=== PATIENT | male | born 1935 | race Asian ===

== ENCOUNTER 2024-05-22 17:15 | Inpatient (IN) | payer MEDICARE, BC, SELFPAY ==
[2024-05-22] VITALS (24 sets, daily range): BP systolic 58–238; BP diastolic 36–162; PULSE 77–164; RESP 16–28; TEMP 36.3–37.3; O2SAT 91–100; BMI 25.8
--- NOTE | 2024-05-22 17:23 | PC.NURSE ---
Patient to er via ems from home was in a passenger seat in a car with altered mental status, and has had decreased mental status en route. Patient was speaking to culinary manager on their arrival, however, patient not speaking now, not following commands or answering questions. Stroke alert called by tayo Huston NP take patient to ct.
--- NOTE | 2024-05-22 17:25 | XR_ITS ---
Examination: CT brain head without contrast. 2-D sagittal coronal reconstructions Date and time of exam:May 22, 2024 1738 hours Comparison July 15, 2021 INDICATIONS: Stroke alert, onset focal neurologic deficit today CTDI: vol (mGy):107.2 DLP: (mGycm):1993 Technique: Multiple CT axial sections of the brain have been obtained, 5 mm slice thickness. Contrast has not been administered. 2-D sagittal, coronal reconstructions have been obtained Low dose protocols were performed. One or more of the following dose reduction techniques were used; automated exposure control, adjustment of the mA and/or KV according to patient size, use of iterative reconstruction technique. Findings: Extensive patient motion The ventricles are not enlarged IMPRESSION: This is essentially a nondiagnostic study Repeat
--- NOTE | 2024-05-22 17:25 | EKG_ITS ---
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
--- NOTE | 2024-05-22 17:26 | PD.EDADULT ---
ED General RME/HPI General Chief complaint: Altered Mental Status Stated complaint: AMS Time Seen by Provider: 05/22/24 17:21 Arrival date/time: 05/22/24 17:15 CC: Altered mental status HPI no last known normal. The patient per EMS was reported to be not himself for the last day, but became severely altered in the last 30 minutes after returning from his primary care provider's office. Patient was transported to us via EMS who pulled him from his vehicle in the driveway of his own private residence, with report from a renter of the patient who escorted the patient to his primary care's visit. The patient is responding to most questions with just his name or I do not know. Related Data Home Medications ?Medication ?Instructions ?Recorded ?Confirmed atorvastatin 10 mg tablet (Lipitor) 10 mg PO QDAY #0 tabs 02/28/16 07/19/19 gabapentin 300 mg capsule 300 mg PO TID ##0 02/28/16 07/19/19 (Neurontin) metformin 500 mg tablet 500 mg PO TID #0 tabs 02/28/16 07/19/19 (Glucophage) amlodipine 5 mg tablet (Norvasc) 5 mg PO QDAY 03/15/19 07/19/19 dutasteride 0.5 mg capsule 0.5 mg PO QDAY 03/15/19 07/19/19 (Avodart) metoprolol succinate 50 mg capsule 50 mg PO QDAY 03/15/19 07/19/19 sprinkle, ext. release 24 hr olmesartan 40 mg tablet (Benicar) 40 mg PO QDAY 03/15/19 07/19/19 fluticasone propionate 50 1 spray intranasal DAILY 07/19/19 07/19/19 mcg/actuation nasal spray,suspension Previous Rx's ?Medication ?Instructions ?Recorded finasteride 5 mg tablet 5 mg PO QDAY #30 tabs 07/20/19 tamsulosin 0.4 mg capsule 0.4 mg PO QDAY #30 caps 07/20/19 Allergies Allergy/AdvReac Type Severity Reaction Status Date / Time Penicillins Allergy Severe HIVES, RASH Verified 07/18/19 18:40 shellfish derived Allergy Intermediate Swelling Verified 07/18/19 18:40 Iodine and Iodide Containing AdvReac Severe Vomiting, Verified 04/15/20 18:40 Produc SWELLING Review of Systems Review of Systems ROS Unobtainable: unobtainable due to mental status Past Medical History Past Medical History NEUROLOGIC: Positive Peripheral Neuropathy CARDIAC: Positive Cardiac Disorders (coronary stent, right 70% carotid stenosis), Hypercholesterolemia, Congestive Heart Failure and Hypertension RESPIRATORY: Positive Chronic Obstructive Pulmonary Disease (COPD) and Asthma GENITOURINARY: Positive Renal Disease and Benign Prostatic Hyperplasia MUSCULOSKELETAL: Positive Degenerative Disk Disease ENT: Positive Deafness ENDOCRINE: Positive Endocrine Disorders and Diabetes Mellitus Type 2; Negative Diabetes Mellitus Type 1 HEMATOLOGIC: Positive Sickle Cell Disease OTHER HISTORY: Negative Blood Transfusions Family History FAMILY HISTORY: Positive Family Neurologic Problems (Mother had a stroke) and Family Cancer (1 brother had colon cancer, another brother had lymphoma) Surgical History SURGICAL: Positive Coronary Stent Social History SMOKING STATUS: Never smoker SUBSTANCE USE: does not use ED Exam Narrative Physical exam: [General: Obtunded appears not in any acute distress Head normocephalic HEENT: Eyes: Pupils are PERRLA EOMs are intact, mouth: [place] dry membranes uvula is midline phonation is normal. Nose: no rhinorrhea or epistaxis all other subsystems of HEENT are within acceptable limits Neck is supple nontender Chest equal chest rise nontender to palpation Respiratory: Clear to auscultation no wheezes crackles or rubs CV: Rate rhythm is regular no murmurs rubs or clicks Abdomen is soft, no masses positive bowel sounds all 4 quadrants Back: No CVA tenderness no spinous process tenderness from cervical spine thoracic and lumbar spine Skin: Intact no petechiae rash induration ulceration or crepitus Extremities: Moving all extremity spontaneously cap refill less than 2 seconds neurosensory intact Neuro: Obtunded Course Course Course Narrative: At 1810 was informed by nursing that the patient became severely agitated in CT, after 1 mg of Ativan the patient actually worsened in his agitation now biting and hitting the staff. Reassessment of the patient shows he is completely changed from when initial assessment where he was semisomnolent semiresponsive now he is aggressive. At this time I have elected in consideration with Dr. Fisher to intubate this patient for better medical management and further imaging. Patient successfully intubated without complication noted to be in A-fib RVR with a heart rate of 161. The patient given 20 mg of Cardizem, and started on a Cardizem drip pressures were initially at 200/100 currently now at 155/73. Rectal temp noted to be 99.3. Patient's case presented to Dr. Cheek who agrees to accept the patient for admission. Quality Measures none Orders Category Date Time Status 24 HR Medical Restraints Q2HR Care 05/22/24 18:22 Active Bedside Blood Glucose NOW Care 05/22/24 17:25 Active Multisensor Intelligence Officer NOW Care 05/22/24 17:25 Active Continuous Pulse Oximetry NOW Care 05/22/24 17:25 Completed EKG (ED ONLY) *Do not use* NOW Care 05/22/24 17:25 Completed [place] [Urinary Catheter] QS Care 05/22/24 19:10 Active In and Out Catheter NEEDED Care 05/22/24 17:25 Active Insert IV NOW Care 05/22/24 17:25 Active Insert NG / OG tube NOW Care 05/22/24 18:34 Active Intubation NOW Care 05/22/24 18:17 Completed Miscellaneous Nursing Order NOW Care 05/22/24 21:14 Active NG / OG Tube to LIS NOW Care 05/22/24 18:17 Active NIH Stroke Scale now Care 05/22/24 17:25 Active NPO NOW Care 05/22/24 17:25 Active Nurse Swallow Screen x1 Care 05/22/24 17:25 Active Urinary Catheter QS Care 05/22/24 18:29 Active Consult to Neurology / Tele-Neurology Routine Cons 05/22/24 17:25 Active CA echo doppler complete Routine Exams 05/22/24 20:[address] chest abdomen pelvis wo Stat Exams 05/22/24 19:[address] head/brain wo con Stat Exams 05/22/24 19:[address] stroke protocol Stat Exams 05/22/24 17:25 Completed EKG (ED Only) Stat Exams 05/22/24 17:25 Draft XR chest 1V Stat Exams 05/22/24 18:17 Completed XR chest 1V post procedure Stat Exams 05/22/24 18:32 Completed ABG [Arterial Blood Gas] Stat Lab 05/22/24 19:52 Completed Ammonia Stat Lab 05/22/24 19:47 Completed Blood Culture (Lab) Stat Lab 05/22/24 17:32 Received CBC Stat Lab 05/22/24 17:34 Completed CRP [C-Reactive Protein] Stat Lab 05/22/24 17:34 Completed Cocci Serology IgM with reflex to IgG [Cocci Serology, Lab 05/22/24 21:09 Ordered Unk History] Stat Comprehensive Metabolic Panel Stat Lab 05/22/24 17:34 Completed Drug Screen,Urine Stat Lab 05/22/24 19:07 Completed Free T4 (Free Thyroxine) Stat Lab 05/22/24 17:34 Completed HCG Titer if Positive Stat Lab 05/22/24 17:34 Completed Lactic Acid [Lactate (Lactic Acid)] Stat Lab 05/22/24 20:19 Results Magnesium Stat Lab 05/22/24 17:34 Completed Partial Thromboplastin Time Stat Lab 05/22/24 17:34 Completed Procalcitonin Stat Lab 05/22/24 17:34 Completed Prothrombin Time with INR Stat Lab 05/22/24 17:34 Completed Sed Rate (ESR) Stat Lab 05/22/24 17:34 Completed Sputum Culture and Gram Stain Stat Lab 05/22/24 20:20 Received Syphilis Stat Lab 05/22/24 17:34 Completed Thyroid Stimulating Hormone Stat Lab 05/22/24 17:34 Completed Troponin I Stat Lab 05/22/24 17:34 Completed Urinalysis Stat Lab 05/22/24 19:07 Completed Urine Culture Stat Lab 05/22/24 19:05 Received Vitamin B1 (Thiamine)* Stat Lab 05/22/24 19:47 Received Vitamin B12 Stat Lab 05/22/24 17:34 Completed Cefepime Inj [Maxipime Inj] 2 gm Med 05/22/24 21:22 Ordered Sodium Chloride 0.9% [Ns] 50 ml IV Q8HR DILTIAZEM in D5W 125 MG Med 05/22/24 18:51 Discontinued 125 mg in 125 ml IV 5 mg/hr Diltiazem Inj [Cardizem Inj] Med 05/22/24 18:50 Discontinued 20 mg IV X1 ONE Etomidate Inj [Amidate Inj] Med 05/22/24 18:17 Discontinued 20 mg IVP X1 ONE LORazepam [Ativan Inj] Med 05/22/24 17:47 Discontinued 1 mg IVP X1 ONE LORazepam [Ativan Inj] Med 05/22/24 17:43 Discontinued 2 mg .ROUTE .STK-MED ONE Magnesium Sulfate 4 GM Ivpb [Magnesium Sulfate Ivpb] Med 05/22/24 18:26 Active 4 gm in 50 ml IV X1 Midazolam/Ns 100 mg Ivpb [Versed Pf Inj in Ns Premix] Med 05/22/24 18:17 Active 100 mg in 100 ml IV 1 mg/hr Ondansetron Inj [Zofran Inj] Med 05/22/24 17:25 Active 4 mg IV Q4HR PRN Propofol 1,000 mg Ivpb [Diprivan Ivpb] Med 05/22/24 19:10 Active 1,000 mg in 100 ml IV 5 mcg/kg/min Ringers Lactated 1000 ml [Lactated Ringers] 1,000 ml Med 05/22/24 20:06 Discontinued IV 999 mls/hr Rocuronium Inj [Zemuron Inj] Med 05/22/24 18:17 Discontinued 40 mg IVP X1 ONE Sodium Chloride 0.9% 1000 ml [Ns] 1,000 ml Med 05/22/24 20:39 Active IV 125 mls/hr Sodium Chloride 0.9% 1000 ml [Ns] 1,000 ml Med 05/22/24 19:01 Discontinued IV 150 mls/hr Sodium Chloride 0.9% 1000 ml [Ns] 1,000 ml Med 05/22/24 18:50 Discontinued IV 999 mls/hr Sodium Chloride Rt [place] 10% [NS Rt [place]achi 10%] Med 05/22/24 19:01 Discontinued 5 ml INH X1 ONE Vancomycin Pharmacy to Dose Med 05/23/24 09:00 Ordered 1 each IV QDAY cefTRIAXone [Rocephin] 1,000 mg Med 05/22/24 19:50 Discontinued SODIUM CHLORIDE 0.9% (Popper) [NS 0.9% (Popper)] 50 ml IV X1 fentaNYL 2,500 MCG/250 ML BAG [Sublimaze Inj 2,500 MCG/ Med 05/22/24 18:20 Active 250 ML BAG] 2,500 mcg in 250 ml IV 25 mcg/hr Oxygen Delivery NOW RT 05/22/24 17:25 Active Sputum Induction PRN RT 05/22/24 19:15 Ordered Volume Ventilator Stat RT 05/22/24 Active Vital Signs Vital signs: Vital Signs Temperature 97.3 F 05/22/24 17:35 Pulse Rate 93 05/22/24 17:35 Respiratory Rate 16 05/22/24 17:35 Blood Pressure 128/61 05/22/24 17:35 Pulse Oximetry (%) 94 L 05/22/24 17:35 Oxygen Delivery Method Room Air 05/22/24 17:35 [facility] Patient data External records reviewed:: [facility] previous records and EMS form Clinical information provided by:: patient and EMS Social determinants that could affect healthcare access:: none Patient has the following chronic illnesses:: Hypertension diabetes How is presenting disease/condition affected by chronic disease/condition?: uneffected by Evaluation data The following diagnostics were reviewed and interpreted by me:: lab results, radiology exam(s) and EKG tracing(s) Lab and/or radiology exams considered but not ordered:: CBC shows mild leukocytosis 11.4 and H&H of 13 and 37 with platelets at 165. Coags show PT of 12.4 INR PTT are within acceptable limits CMP shows BUN of 26 with no other electrolyte imbalances glucose of 244 magnesium of 1.1. Interpretation Summary: CBC shows a mild leukocytosis 11.4 H&H of 13.1 and 37.9 respectively platelets at 165. Coag shows a PT of 12.4 INR 1.1 PTT 27.5 CMP shows no significant electrolyte imbalances other than a magnesium of 1.1. BUN of 26 creatinine of 1.3 GFR 53 no transaminitis or T. bili elevation Troponin is negative Postintubation ABG shows a pH of 7.39 pCO2 of 40 pO2 141 bicarb of 24 oxygen saturations are 100% base deficit of 1. Magnesium 1.1 C-reactive proteins pending troponin is negative TSH of 3.[address] chest abdomen pelvis shows significant bibasilar pneumonia CT head is negative for any acute finding Medications Medications considered but not ordered:: None yet he does Medication administrations:: Medication Administration History Fentanyl Citrate (Sublimaze Inj 2,500 Mcg/250 Ml Bag) 2,500 mcg in 250 mls @ 2.5 mls/hr IV .Q24H PRN; Protocol PRN Reason: PER PROTOCOL Stop: 05/27/24 18:19 Last Titration: 05/22/24 20:32 Dose: 125 mcg/hr, 12.5 mls/hr Documented By: Titration: 05/22/24 20:23 Dose: 75 mcg/hr, 7.5 mls/hr Documented By: Titration: 05/22/24 19:06 Dose: 75 mcg/hr, 7.5 mls/hr Documented By: Admin: 05/22/24 18:36 Dose: 25 mcg/hr, 2.5 mls/hr Documented By: VENUS Co-signed By: ADRIAN Midazolam HCl (Versed Pf Inj In Ns Premix) 100 mg in 100 mls @ 1 mls/hr IV .Q24H PRN; Protocol PRN Reason: PER PROTOCOL Stop: 05/27/24 18:16 Last Titration: 05/22/24 20:37 Dose: 3 mg/hr, 3 mls/hr Documented By: Titration: 05/22/24 19:37 Dose: 2 mg/hr, 2 mls/hr Documented By: Admin: 05/22/24 18:37 Dose: 1 mg/hr, 1 mls/hr Documented By: VENUS Co-signed By: ADRIAN Magnesium Sulfate (Magnesium Sulfate Ivpb) 4 gm in 50 mls @ 12.5 mls/hr IV X1 ONE Stop: 05/22/24 22:25 Last Admin: 05/22/24 18:55 Dose: 12.5 mls/hr Documented By: LARY Propofol (Diprivan Ivpb) 1,000 mg in 100 mls @ 2.245 mls/hr IV .Q24H PRN; Protocol PRN Reason: PER PROTOCOL Stop: 06/21/24 19:09 Last Titration: 05/22/24 20:45 Dose: 0 mcg/kg/min, 0 mls/hr Documented By: Titration: 05/22/24 20:35 Dose: 5 mcg/kg/min, 2.245 mls/hr Documented By: Titration: 05/22/24 19:49 Dose: 0 mcg/kg/min, 0 mls/hr Documented By: Titration: 05/22/24 19:46 Dose: 5 mcg/kg/min, 2.245 mls/hr Documented By: Titration: 05/22/24 19:41 Dose: 10 mcg/kg/min, 4.491 mls/hr Documented By: Titration: 05/22/24 19:36 Dose: 15 mcg/kg/min, 6.736 mls/hr Documented By: Titration: 05/22/24 19:31 Dose: 20 mcg/kg/min, 8.981 mls/hr Documented By: Titration: 05/22/24 19:26 Dose: 15 mcg/kg/min, 6.736 mls/hr Documented By: Titration: 05/22/24 19:21 Dose: 10 mcg/kg/min, 4.491 mls/hr Documented By: Admin: 05/22/24 19:16 Dose: 5 mcg/kg/min, 2.245 mls/hr Documented By: DUY Co-signed By: ADRIAN Sodium Chloride (Ns) 1,000 mls @ 125 mls/hr IV .Q8H JAQUELIN Stop: 06/21/24 20:38 Last Admin: 05/22/24 20:51 Dose: 125 mls/hr Documented By: DUY Cefepime HCl 2 gm/ Sodium (Chloride) 50 mls @ 100 mls/hr IV Q8HR JAQUELIN Stop: 05/29/24 21:21 Ondansetron HCl (Ondansetron Inj 2 Mg/Ml Inj 2 Ml) 4 mg IV Q4HR PRN PRN Reason: NAUSEA OR VOMITING Stop: 06/21/24 17:24 Pharmacy Consult (Vancomycin Pharmacy To Dose 1 Each Each) 1 each IV QDAY JAQUELIN Stop: 06/22/24 08:59 Discontinued Medications Diltiazem HCl (Diltiazem Inj 5 Mg/Ml Vial 5 Ml) 20 mg IV X1 ONE Stop: 05/22/24 18:51 Last Admin: 05/22/24 18:54 Dose: 20 mg Documented By: LARY Etomidate (Etomidate Inj 2 Mg/Ml Vial 10 Ml) 20 mg IVP X1 ONE Stop: 05/22/24 18:18 Last Admin: 05/22/24 18:28 Dose: 20 mg Documented By: ADRIAN Sodium Chloride (Ns) 1,000 mls @ 999 mls/hr IV .Q1H1M ONE Stop: 05/22/24 19:50 Last Admin: 05/22/24 19:06 Dose: Not Given Documented By: LARY Non-Admin Reason: Cancelled by Provider Diltiazem HCl (Diltiazem In D5w 125 Mg) 125 mg in 125 mls @ 5 mls/hr IV .Q24H JAQUELIN; Protocol Stop: 06/21/24 18:50 Last Titration: 05/22/24 19:49 Dose: 0 mg/hr, 0 mls/hr Documented By: Admin: 05/22/24 19:05 Dose: 5 mg/hr, 5 mls/hr Documented By: LARY Sodium Chloride (Ns) 1,000 mls @ 150 mls/hr IV .Q6H40M ONE Stop: 05/23/24 01:40 Last Admin: 05/22/24 19:05 Dose: 150 mls/hr Documented By: LARY Ceftriaxone Sodium 1,000 mg/ (Sodium Chloride) 50 mls @ 100 mls/hr IV X1 ONE Stop: 05/22/24 20:19 Last Infusion: 05/22/24 20:33 Dose: Infused Documented By: Admin: 05/22/24 20:03 Dose: 100 mls/hr Documented By: KG Lactated Ringer's (Lactated Ringers) 1,000 mls @ 999 mls/hr IV .Q1H1M ONE Stop: 05/22/24 21:06 Last Admin: 05/22/24 20:16 Dose: 999 mls/hr Documented By: KG Lorazepam (Lorazepam 2 Mg/Ml Vial) 1 mg IVP X1 ONE Stop: 05/22/24 17:48 Last Admin: 05/22/24 17:53 Dose: 1 mg Documented By: ADRIAN Comments: given in CT Lorazepam (Lorazepam 2 Mg/Ml Vial) Confirm Administered Dose 2 mg .ROUTE .STK-MED ONE Stop: 05/22/24 17:44 Last Admin: 05/22/24 18:06 Dose: Not Given Documented By: ADRIAN Non-Admin Reason: Override Medication Rocuronium [place] (Rocuronium Inj 10 Mg/Ml Vial 10 Ml) 40 mg IVP X1 ONE Stop: 05/22/24 18:18 Last Admin: 05/22/24 18:28 Dose: 40 mg Documented By: ADRIAN Co-signed By: KASHMIR Comments: for intubation Sodium Chloride (Sodium Chloride Rt 10% 15 Ml Nebu) 5 ml INH X1 ONE Stop: 05/22/24 19:02 None Consultations Consultation(s) initiated? (list below): No Diagnosis Differential Diagnosis ED Complaint MDM: Intracranial hemorrhage hypertensive emergency closed head injury Most likely diagnosis given after review of the tests above:: Altered mental status pneumonia Admission Indicated Admission indicated?: indicated Explain why admission is indicated or not indicated:: Requires intensive management Admission Request Was there a request for admission?: No Disposition Plan Disposition Plan: Admit Medical Decision Making Differential Diagnosis Differential Diagnosis: Intracranial hemorrhage hypertensive emergency closed head injury Lab Data 05/22/24 17:34 05/22/24 17:34 Labs: Lab Results 05/22/24 05/22/24 05/22/24 Range/Units 17:34 19:07 19:47 WBC 11.4 H (3.8-10.6) Thou/mm3 RBC 4.13 L (4.50-5.90) Miln/mm3 Hgb 13.1 L (13.5-16.0) g/dL Hct 37.9 L (41.0-53.0) % MCV 92 (80-100) fL MCH 31.7 (25.0-35.0) pg MCHC 34.6 (31.0-37.0) g/dl RDW Std Deviation 44.5 H (35.1-43.9) fL Plt Count 165 (140-440) Thou/mm3 Neut % (Auto) 77 (37-80) % Lymph % (Auto) 19 (10-50) % [place] % (Auto) 3 (0-12) % Eos % (Auto) 0 (0-10) % Baso % (Auto) 0 (0-2.5) % Neut # (Auto) 8.8 H (1.8-7.7) Thou/mm3 Lymph # (Auto) 2.1 (1.0-4.8) Thou/mm3 [place] # (Auto) 0.4 (0.0-0.8) Thou/mm3 Eos # (Auto) 0.0 (0.0-0.5) Thou/mm3 Baso # (Auto) 0.1 (0.0-0.2) Thou/mm3 Immature Gran # (Auto) 0.02 H (0.00-0.00) Thou/mm3 Absolute Nucleated RBC 0.00 (0.00-0.00) Thou/mm3 Immature Gran % 0 (0-0) % Nucleated RBC % 0 (0) /100 WBC ESR 11 (0-20) mm/hr PT 12.4 H (9.0-12.2) Seconds INR 1.1 (0.9-1.3) APTT 27.5 (22.0-36.0) Seconds Puncture Site ABG pH (7.35-7.45) ABG pCO2 (32.0-48.0) mmHg ABG pO2 (83-108) mmHg ABG HCO3 (20-26) mEq/L ABG O2 Saturation (91-98) % ABG Base Excess (-3-3) FiO2 % Sodium 137 (136-145) mMol/L Potassium 4.2 (3.4-5.1) mMol/L Chloride 98 (98-107) mMol/L Carbon Dioxide 26.2 (20.0-31.0) mMol/L Anion Gap 13 (7-16) BUN 26 H (9-23) mg/dL Creatinine 1.3 (0.6-1.3) mg/dL Estim Creat Clear Calc Not Performed. eGFR 53 L (60 - ) See Note BUN/Creatinine Ratio 20 (12-20) Ratio Glucose 244 H (74-106) mg/dL Calculated Osmolality 286 (275-295) Lactic Acid (0.4-2.0) mMol/L Calcium 9.1 (8.3-10.6) mg/dL Corrected Calcium 9.2 (8.5-10.1) mg/dL Magnesium 1.1 L (1.6-2.6) mg/dL Total Bilirubin 1.2 (0.3-1.2) mg/dL AST 24 (0-34) U/L ALT 17 (10-49) U/L Alkaline Phosphatase 55 (46-116) U/L Ammonia 21 (11-32) uMol/L Troponin I < 0.020 (0.0-0.045) ng/mL C-Reactive Prot, Quant 6.0 H (0.0-0.9) mg/dL Total Protein 6.1 (5.7-8.2) gm/dL Albumin 3.9 (3.4-4.8) gm/dL Globulin 2.2 L (2.3-3.5) gm/dL Albumin/Globulin Ratio 1.8 (1.2-2.2) Vitamin B12 241 (211-911) pg/mL Procalcitonin 5.61 H (0.0-0.49) ng/ml TSH 3.77 (0.55-4.78) uIU/mL Free T4 1.19 (0.89-1.76) ng/dL Ur Collection Type Clean Catch Urine Color Colorless A (Lt Yel-Yel) Urine Clarity Clear (Clear/Hazy) Urine pH 6.5 (5.0-7.0) Ur Specific [place] 1.010 (1.001-1.035) Urine Protein 1+ A (Neg - Trace) Urine Glucose (UA) 3+ A (Negative) Urine Ketones 1+ A (Negative) Urine Blood 1+ A (Negative) Urine Nitrite Negative (Negative) Urine Bilirubin Negative (Negative) Urine Urobilinogen (Auto) Negative (0.0-1.0) mg/dL Ur Leukocyte Esterase Negative (Negative) Urine RBC 2 (0-3) /hpf Urine WBC 1 (0-5) /hpf Ur Squamous Epith Cells 0 (0-5) /hpf Urine Bacteria None (None) Urine Opiates Screen Negative (Negative) Urine Fentanyl Screen Negative (Negative) Ur Barbiturates Screen Negative (Negative) U Amphetamin/Meth Scrn Negative (Negative) U Benzodiazepines Scrn Negative (Negative) U Cocaine Metab Screen Negative (Negative) U Marijuana (THC) Screen Negative (Negative) Syphilis Serology Nonreactive (Nonreactive) HCG (Qual) Negative 05/22/24 05/22/24 Range/Units 19:52 20:19 WBC (3.8-10.6) Thou/mm3 RBC (4.50-5.90) Miln/mm3 Hgb (13.5-16.0) g/dL Hct (41.0-53.0) % MCV (80-100) fL MCH (25.0-35.0) pg MCHC (31.0-37.0) g/dl RDW Std Deviation (35.1-43.9) fL Plt Count (140-440) Thou/mm3 Neut % (Auto) (37-80) % Lymph % (Auto) (10-50) % [place] % (Auto) (0-12) % Eos % (Auto) (0-10) % Baso % (Auto) (0-2.5) % Neut # (Auto) (1.8-7.7) Thou/mm3 Lymph # (Auto) (1.0-4.8) Thou/mm3 [place] # (Auto) (0.0-0.8) Thou/mm3 Eos # (Auto) (0.0-0.5) Thou/mm3 Baso # (Auto) (0.0-0.2) Thou/mm3 Immature Gran # (Auto) (0.00-0.00) Thou/mm3 Absolute Nucleated RBC (0.00-0.00) Thou/mm3 Immature Gran % (0-0) % Nucleated RBC % (0) /100 WBC ESR (0-20) mm/hr PT (9.0-12.2) Seconds INR (0.9-1.3) APTT (22.0-36.0) Seconds Puncture Site Right Radial ABG pH 7.39 (7.35-7.45) ABG pCO2 40 (32.0-48.0) mmHg ABG pO2 141 H (83-108) mmHg ABG HCO3 24 (20-26) mEq/L ABG O2 Saturation 100 H (91-98) % ABG Base Excess -1 (-3-3) FiO2 75 % Sodium (136-145) mMol/L Potassium (3.4-5.1) mMol/L Chloride (98-107) mMol/L Carbon Dioxide (20.0-31.0) mMol/L Anion Gap (7-16) BUN (9-23) mg/dL Creatinine (0.6-1.3) mg/dL Estim Creat Clear Calc eGFR (60 - ) See Note BUN/Creatinine Ratio (12-20) Ratio Glucose (74-106) mg/dL Calculated Osmolality (275-295) Lactic Acid 4.9 H* (0.4-2.0) mMol/L Calcium (8.3-10.6) mg/dL Corrected Calcium (8.5-10.1) mg/dL Magnesium (1.6-2.6) mg/dL Total Bilirubin (0.3-1.2) mg/dL AST (0-34) U/L ALT (10-49) U/L Alkaline Phosphatase (46-116) U/L Ammonia (11-32) uMol/L Troponin I (0.0-0.045) ng/mL C-Reactive Prot, Quant (0.0-0.9) mg/dL Total Protein (5.7-8.2) gm/dL Albumin (3.4-4.8) gm/dL Globulin (2.3-3.5) gm/dL Albumin/Globulin Ratio (1.2-2.2) Vitamin B12 (211-911) pg/mL Procalcitonin (0.0-0.49) ng/ml TSH (0.55-4.78) uIU/mL Free T4 (0.89-1.76) ng/dL Ur Collection Type Urine Color (Lt Yel-Yel) Urine Clarity (Clear/Hazy) Urine pH (5.0-7.0) Ur Specific [place] (1.001-1.035) Urine Protein (Neg - Trace) Urine Glucose (UA) (Negative) Urine Ketones (Negative) Urine Blood (Negative) Urine Nitrite (Negative) Urine Bilirubin (Negative) Urine Urobilinogen (Auto) (0.0-1.0) mg/dL Ur Leukocyte Esterase (Negative) Urine RBC (0-3) /hpf Urine WBC (0-5) /hpf Ur Squamous Epith Cells (0-5) /hpf Urine Bacteria (None) Urine Opiates Screen (Negative) Urine Fentanyl Screen (Negative) Ur Barbiturates Screen (Negative) U Amphetamin/Meth Scrn (Negative) U Benzodiazepines Scrn (Negative) U Cocaine Metab Screen (Negative) U Marijuana (THC) Screen (Negative) Syphilis Serology (Nonreactive) HCG (Qual) Critical Care Time Critical Care Time Critical Care Time: Yes Total Critical Care Time (min.): 48 Attestation: Excluding procedures Discharge Plan Plan Patient Disposition: Admit Acute Care w/in Hospital Patient condition on transfer: Stable Prescriptions/Referrals Prescriptions/Med Rec: No Action metformin [Glucophage] 500 MG tablet 500 mg PO TID Qty: 0 atorvastatin [Lipitor] 10 MG tablet 10 mg PO QDAY Qty: 0 gabapentin [Neurontin] 300 MG capsule 300 mg PO TID Qty: 0 amlodipine [Norvasc] 5 mg Tablet 5 mg PO QDAY olmesartan [Benicar] 40 mg Tablet 40 mg PO QDAY dutasteride [Avodart] 0.5 mg Capsule 0.5 mg PO QDAY metoprolol succinate 50 mg Capsule,Sprinkle,Er 24hr 50 mg PO QDAY fluticasone propionate 50 mcg/actuation spray,suspension 1 spray intranasal DAILY Patient Comments: SHAKE LQ AND U 1 SPR IEN QD finasteride 5 mg Tablet 5 mg PO QDAY Qty: 30 0RF tamsulosin 0.4 mg Capsule 0.4 mg PO QDAY Qty: 30 0RF Referrals: Luis Alberto Dietrich MD [Primary Care Provider] - In 1 week Problem List Clinical Impression: Altered mental status, Pneumonia Patient/Caregiver Discharge Instructions Print Language: Japanese Stand Alone Forms: Kaci Award Info., Patient Portal Info Letter PA/[employer] Supervising Physician PA/[employer] Supervising Physician: Robel Smith ENP
--- NOTE | 2024-05-22 17:35 | PC.NURSE ---
Took patient to ct via [facility] and line controller with Teleneurologist, Dr. Tamayo on screen to follow.
[2024-05-22 17:45] LABS: Basophils # (Auto) 0.1 Thou/mm3 (0.0-0.2); Basophils % (Auto) 0 % (0-2.5); Eosinophils % (Auto) 0 % (0-10); Hematocrit 37.9 % (41.0-53.0); Hemoglobin 13.1 g/dL (13.5-16.0); Immature Granulocytes % (Auto) 0 % (0-0); Immature Granulocytes Auto 0.02 Thou/mm3 (0.00-0.00); Lymphocytes # (Auto) 2.1 Thou/mm3 (1.0-4.8); Lymphocytes % (Auto) 19 % (10-50); Mean Corpuscular HGB Conc 34.6 g/dl (31.0-37.0); Mean Corpuscular Hemoglobin 31.7 pg (25.0-35.0); Mean Corpuscular Volume 92 fL (80-100); Monocytes # (Auto) 0.4 Thou/mm3 (0.0-0.8); Monocytes % (Auto) 3 % (0-12); Neutrophils # (Auto) 8.8 Thou/mm3 (1.8-7.7); Neutrophils % (Auto) 77 % (37-80); Nucleated Red Blood Cell % 0 /100 WBC (0); Platelet Count 165 Thou/mm3 (140-440); RDW Standard Deviation 44.5 fL (35.1-43.9); Red Blood Count 4.13 Miln/mm3 (4.50-5.90); White Blood Count 11.4 Thou/mm3 (3.8-10.6)
--- NOTE | 2024-05-22 17:46 | PC.NURSE ---
In ct patient restless moving around and trying to remove equipment, per Dr. Tamayo can ask er provider for medication to calm patient, patient allergic to iodine and Dr. Tamayo made aware, cta will not be done do to allergy.
[2024-05-22] MEDS: LORazepam 2 MG/ML VIAL 1 MG IVP (17:53)
[2024-05-22 17:58] LABS: HCG Titer if Positive Negative
[2024-05-22 18:01] LABS: INR 1.1 (0.9-1.3); Partial Thromboplastin Time 27.5 Seconds (22.0-36.0); Prothrombin Time 12.4 Seconds (9.0-12.2)
--- NOTE | 2024-05-22 18:03 | ESCONSULT_ITS ---
Tele Neuro Consultation Consultation Date 05/22/24 Most Recent Vital Signs Last Vital Signs Pulse 93 05/22/24 17:35 Laboratory-Coagulation Panel PT 12.4 Seconds (9.0-12.2) H 05/22/24 17:34 INR 1.1 (0.9-1.3) 05/22/24 17:34 APTT 27.5 Seconds (22.0-36.0) 05/22/24 17:34 Consultation Narrative [facility] Patient Name:???elzbieta shepherd Date of :???[id number] Identification Number:??? Date of Service:???05/22/2024 17:28:46 Diagnosis:?G93.49 - Encephalopathy Multifactorial Impression: ?This is an 88 yo M w a PMHX of HTN, DM, acoustic neuroma, who presents to the ED with the acute onset of AMS. He was last known to be at baseline at an unclear time, although was noted to be off all day as per his renter. Was taken to the PCP and noted to have an acute worsening of his condition around 5PM. On arrival to the ED his symptoms remain persistent, although improving. BP was found to be 128 systolic ?Physical exam with unresponsiveness to commands, agitated, moving all extremities spontanesouly but not to command, does not verbalize. ?Labs pending ?Imaging with CTH pending read ?Etiology of presentation favored to be from reversible pathology from toxic/metabolic/infectious/hemodynamic cause. ?Less likely ischemic or ictal, although would consider this ? ? ?Would start with tests for reversible causes: ? ?-UA, Utox, thiamine, ammonia, RPR, TSH, B12, ABG, alcohol, ESR, CRP, troponins, A1C, CBC, CMP, LFTs, CPK, lactic acid, blood cultures if febrile. ?-CXR ? ? ?If the above is unrevealing and the symptoms persist/recur, would consider the below: ? ?-MRI brain with and w/o con ?-rEEG ? ?If the above is unrevealing and the symptoms persist, would consider the below ? ?-LP ? Our recommendations are outlined below. Recommendations: ? Stroke/Telemetry Floor ? Neuro Checks ? Bedside Swallow Eval ? DVT Prophylaxis ? IV Fluids, Normal Saline ? Head of Bed 30 Degrees ? Euglycemia and Avoid Hyperthermia (PRN Acetaminophen) Advanced Imaging:Advanced Imaging Deferred because: severe contrast allergy with reported respiratory distress Metrics: Last Known Well: Unknown Dispatch Time: 05/22/2024 17:28:46 Arrival Time: 05/22/2024 17:15:00 Initial Response Time: 05/22/2024 17:33:45Symptoms: AMS. Initial patient interaction: 05/22/2024 17:47:00 NIHSS Assessment Completed: 05/22/2024 17:52:19Patient is not a candidate for Thrombolytic. Thrombolytic Medical Decision: 05/22/2024 17:58:53Patient was not deemed candidate for Thrombolytic because of following reasons: LKW outside 4.5 hr window. . I personally Reviewed the CT Head and it Showed Primary Provider Notified of Diagnostic Impression and Management Plan on: 05/22/2024 18:01:54 History of Present Illness:Patient is a 88 year old Male. Patient was brought by EMS for symptoms of AMS. This is an 88 yo M w a PMHX of HTN, DM, acoustic neuroma, who presents to the ED with the acute onset of AMS. He was last known to be at baseline at an unclear time, although was noted to be off all day as per his renter. Was taken to the PCP and noted to have an acute worsening of his condition around 5PM. On arrival to the ED his symptoms remain persistent, although improving. BP was found to be 128 systolic. He was taken for CTH and further evaluation. Decision on whether or not to give pharmacological thrombolysis was made based on indications, contraindications, and patient's disability status and preference. ? Medications: Anticoagulant use:??Unknown Antiplatelet use:?Unknown Reviewed EMR for current medications Allergies:? NKDA Social History: Smoking: No Alcohol Use: No Drug Use: No Family History: There is no family history of premature cerebrovascular disease pertinent to this consultation ROS : 14 Points Review of Systems was performed and was negative except mentioned in HPI. Past Surgical History: There Is No Surgical History Contributory To Today?s Visit ? Examination: BP(128/61),?Pulse(93),?Blood Glucose(241) 1A: Level of Consciousness - Alert; keenly responsive?+ 0 1B: Ask Month and Age - Could Not Answer Either Question Correctly?+ 2 1C: Blink Eyes & Squeeze Hands - Performs 0 Tasks?+ 2 2: Test Horizontal Extraocular Movements - Normal?+ 0 3: Test Visual Child - No Visual Loss?+ 0 4: Test Facial Palsy (Use Grimace if Obtunded) - Normal symmetry?+ 0 5A: Test Left Arm Motor Drift - Some Effort Against [place]?+ 2 5B: Test Right Arm Motor Drift - Some Effort Against [place]?+ 2 6A: Test Left Leg Motor Drift - Some Effort Against [place]?+ 2 6B: Test Right Leg Motor Drift - Some Effort Against [place]?+ 2 7: Test Limb Ataxia (FNF/Heel-[place]der[place]) - No Ataxia?+ 0 8: Test Sensation - Normal; No sensory loss?+ 0 9: Test Language/Aphasia - Normal; No aphasia?+ 0 10: Test Dysarthria - Mute/Anarthric?+ 2 11: Test Extinction/Inattention - No abnormality?+ 0 NIHSS Score:?14 Pre-Morbid Modified Bertha Scale:0 Points = No symptoms at all Spoke with :?attending This consult was conducted in real time using interactive audio and video technology. Patient was informed of the technology being used for this visit and agreed to proceed. Patient located in hospital and provider located at home/office setting. Patient is being evaluated for possible acute neurologic impairment and high probability of imminent or life-threatening deterioration. I spent total of 35 minutes providing care to this patient, including time for face to face visit via telemedicine, review of medical records, imaging studies and discussion of findings with providers, the patient and/or family. Dr Sheng [facility] For Inpatient follow-up with [facility] physician please call [facility] at . As we are not an outpatient service for any post hospital discharge needs please contact the hospital for assistance. If you have any questions for the [facility] physicians or need to reconsult for clinical or diagnostic changes please contact us via [facility] at . ?
[2024-05-22 18:06] LABS: Alanine Aminotransferase 17 U/L (10-49); Albumin, Serum 3.9 gm/dL (3.4-4.8); Albumin/Globulin Ratio 1.8 (1.2-2.2); Alkaline Phosphatase 55 U/L (46-116); Anion Gap 13 (7-16); Aspartate Amino Transferase 24 U/L (0-34); BUN/Creatinine Ratio 20 Ratio (12-20); Bilirubin,Total 1.2 mg/dL (0.3-1.2); Blood Urea Nitrogen 26 mg/dL (9-23); Calcium 9.1 mg/dL (8.3-10.6); Calcium (Corrected) 9.2 mg/dL (8.5-10.1); Carbon Dioxide 26.2 mMol/L (20.0-31.0); Chloride 98 mMol/L (98-107); Creatinine (Component) 1.3 mg/dL (0.6-1.3); Globulin 2.2 gm/dL (2.3-3.5); Glucose 244 mg/dL (74-106); Magnesium 1.1 mg/dL (1.6-2.6); Osmolality,Calculated 286 (275-295); Potassium 4.2 mMol/L (3.4-5.1); Sodium 137 mMol/L (136-145); Total Protein 6.1 gm/dL (5.7-8.2); Troponin I < 0.020 ng/mL (0.0-0.045); eGFR 53 See Note
--- NOTE | 2024-05-22 18:09 | PC.NURSE ---
Addendum entered by Alicia Awad RN 05/22/24 19:27: Per teleneurologist patient not a candidate for tenecteplase, do to unknown well time, per [employer] stating patient's room mate stated patient not acting normal all day. Original Note: Patient back from ct, restless moving around, agitated, combative, pushing staff away, pinched nurse, patient unable to follow commands.
--- NOTE | 2024-05-22 18:17 | XR_ITS ---
Examination: AP chest single view Technique: AP portable upright chest single view Hypoxic respiratory failure shortness of breath today Exam date and time: May 19, 2024 1832 hrs. Findings: Endotracheal tube tip 5.1 cm above [place] Bilateral pneumonia, significant and diffuse in the right lower The orogastric tube is in the stomach satisfactory position Normal heart size Impression: Bilateral pneumonia, diffuse and significant in the right lung
--- NOTE | 2024-05-22 18:17 | PC.NURSE ---
Patient move to room 3 for intubation
--- NOTE | 2024-05-22 18:25 | PC.NURSE ---
Dr. Fisher and Bijan ALONZO at bedside to intubate patient.
[2024-05-22] MEDS: ETOMIDATE INJ 2 MG/ML VIAL 10 ML 20 MG IVP (18:28)
[2024-05-22] MEDS: ROCURONIUM INJ 10 MG/ML VIAL 10 ML 40 MG IVP (18:28)
--- NOTE | 2024-05-22 18:32 | XR_ITS ---
Examination: AP chest single view Technique one AP portable supine chest single view Exam date and time: May 22, 2024 1840 hrs. Comparison May 22, 2024 1835 hrs. Indications: Hypoxic respiratory failure, pneumonia, repositioned tracheal tube Findings: Tracheal tube tip 5.9 cm above [place] Bilateral pneumonia, diffuse right lung and at the lung bases The orogastric tube is in the stomach, the tip is below the level of the film Impression: Endotracheal tube tip 5.9 cm above [place]
--- NOTE | 2024-05-22 18:35 | ESOP_ITS ---
Procedures Procedure Date / Time 05/22/24 3157 Intubation Indication(s): inability to protect airway Informed consent obtained: procedure done urgently Time out done, and the following verified: correct patient, side and site, p rocedure, patient position and implants and/or equipment Sedative: etomidate Mg given: 20 Paralytic: rocuronium Mg given: 40 Laryngoscope: fiber optic video scope Assist device used: fiber optic device ET tube size: 7.5 ET tube uncuffed: Yes Tube secured depth (cm): 20 Tube secured location: lips Tube placement confirmation: visualized tube passing through cords, equal breath sounds bilaterally, no breath sounds over epigastrium and confirmation by capnometry Patient tolerated procedure: well and no complications EBL(ml): 0 Intubation complications: none Additional comments: Procedure was performed under supervision of Dr. Fisher. James Church MD, PGY 2. Disclaimer: This note was dictated by speech recognition. Minor errors in statement clerks manager may be present due to voice recognition software.
--- NOTE | 2024-05-22 18:35 | PC.NURSE ---
XRAY AT BEDSIDE
[2024-05-22] MEDS: fentaNYL 2,500 MCG/250 ML BAG 2,500 MCG/250 ML BAG IV (18:36)
[2024-05-22] MEDS: MIDAZOLAM/NS 100 MG IVPB 100 MG/100 ML BAG IV (18:37)
--- NOTE | 2024-05-22 18:39 | PC.NURSE ---
ETT pulled back to 20cm at the lip
[2024-05-22] MEDS: DILTIAZEM INJ 5 MG/ML VIAL 5 ML 20 MG IV (18:54)
[2024-05-22] MEDS: Magnesium Sulfate 4 GM Ivpb 4 GM/50 ML BAG IV (18:55)
--- NOTE | 2024-05-22 19:04 | XR_ITS ---
Examination: CT brain head without contrast. 2-D sagittal coronal reconstructions Date and time of exam:May 22, 2024 1926 hrs. Comparison May 22, 2024 1743 hrs. Indications: Altered mental status today CTDI: vol (mGy):52.6 DLP: (mGycm):1032 Technique: Multiple CT axial sections of the brain have been obtained, 5 mm slice thickness. Contrast has not been administered. 2-D sagittal, coronal reconstructions have been obtained Low dose protocols were performed. One or more of the following dose reduction techniques were used; automated exposure control, adjustment of the mA and/or KV according to patient size, use of iterative reconstruction technique. Findings: No significant ventricular enlargement. 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 No mass effect or midline shift Basal cisterns are not remarkable. Fourth ventricle is midline. Cranial vault intact. Posterior fossa artifacts Prominent opacification of the nasal airways Impression: Negative for acute hemorrhage, mass effect or midline shift Advise clinical correlation and follow-up accordingly
[2024-05-22] MEDS: DILTIAZEM in D5W 125 MG 125 MG/125 ML BAG IV (19:05)
[2024-05-22] MEDS: SODIUM CHLORIDE 0.9% 1000 ML 1,000 ML 150 ML IV (19:05)
--- NOTE | 2024-05-22 19:08 | XR_ITS ---
Examination: CT chest, without intravenous contrast. CT abdomen, without intravenous contrast. CT pelvis, without intravenous contrast. 2-D sagittal and coronal reconstructions. 3-D reconstructions. Date and time of exam:May 22, 2024 at 1934 hrs. Indications: Hypoxic respiratory failure, altered mental status today Technique: Multiple CT images chest abdomen pelvis without intravenous contrast 2-D sagittal coronal reconstructions Low dose protocols, adjustment MA KV according to patient size Findings: Tracheal tube tip 4.8 cm above [place] No thoracic aortic aneurysm dilatation Pulmonary artery segments are not enlarged Heavy calcification left anterior descending left circumflex coronary arteries Prominent pneumonia at the lung bases consider aspiration pneumonia Mild enlargement cardiac contour Orogastric tube in the stomach No focal liver or splenic lesion No gallstones No pancreatic or adrenal mass 4 cm posterior left renal cyst No renal or ureteral calculi Aortic calcification no aneurysmal dilatation 23 mm fat-containing umbilical hernia Normal appendix Abundant stool in the rectosigmoid No obstruction Urinary Ovalle catheter Transverse prostate dimension 4.5 cm Severe osteopenia Advanced disc narrowing lower 3 lumbar levels Impression: Significant bibasilar pneumonia consider aspiration pneumonia Endotracheal tube tip 4.8 cm above [place] Orogastric tube in the stomach Abundant stool in the rectosigmoid and rectum 23 mm fat-containing umbilical hernia Normal appendix No renal or ureteral calculi, no hydronephrosis
[2024-05-22] MEDS: PROPOFOL 1,000 MG IVPB 1,000 MG/100 ML VIAL 2.245 MG IV (19:16)
[2024-05-22 19:18] LABS: Free T4 (Free Thyroxine) 1.19 ng/dL (0.89-1.76); Thyroid Stimulating Hormone 3.77 uIU/mL (0.55-4.78)
[2024-05-22 19:31] LABS: Collection Type, Urine Clean Catch; Squamous Epithelial Cell,Urine 0 /hpf (0-5)
[2024-05-22 19:42] LABS: Sed Rate (ESR) 11 mm/hr (0-20)
[2024-05-22 19:43] LABS: Vitamin B12 241 pg/mL (211-911)
--- NOTE | 2024-05-22 19:49 | PC.NURSE ---
Pt was able to tolerate CT scan but did have an episode of hypotension. Upon arrival back to ED, pt's BPs are 50s over 40s/30s - informed Robel, P[employer]ER - verbal order received to hold diltiazem drip and propofol drip at this time and infuse fluid wide open.
[2024-05-22 19:51] LABS: Bilirubin,Urine Negative (Negative); Blood,Urine 1+ (Negative); Clarity,Urine Clear (Clear/Hazy); Color,Urine Colorless (Lt Yel-Yel); Glucose, Urine 3+ (Negative); Ketones,Urine 1+ (Negative); Leukocyte Esterase,Urine Negative (Negative); Nitrite,Urine Negative (Negative); PH,Urine 6.5 (5.0-7.0); Protein,Urine 1+ (Neg - Trace); RBC,Urine 2 /hpf (0-3); Urobilinogen,Urine Negative mg/dL (0.0-1.0); WBC,Urine 1 /hpf (0-5)
[2024-05-22 19:57] LABS: Amphetamine/Methamp Scrn,U Negative (Negative); Barbiturate Screen,Urine Negative (Negative); Benzodiazepines Screen,Urine Negative (Negative); Benzoylecgonine Screen, Ur Negative (Negative); Fentanyl Screen,Urine Negative (Negative); Opiate Screen,Urine Negative (Negative); THC Screen,Urine Negative (Negative)
[2024-05-22 20:00] LABS: Allen Test Performed/OK; Base Excess -1 (-3-3); HCO3 24 mEq/L (20-26); Inspired Oxygen, FIO2 75 %; O2 Saturation 100 % (91-98); PCO2 40 mmHg (32.0-48.0); PO2 141 mmHg (83-108); Puncture Site Right Radial; pH, Arterial 7.39 (7.35-7.45)
[2024-05-22 20:03] LABS: Procalcitonin 5.61 ng/ml (0.0-0.49)
[2024-05-22] MEDS: cefTRIAXone 1,000 MG in SODIUM CHLORIDE 0.9% (Popper) 50 ML 100 MG IV (20:03)
[2024-05-22 20:04] LABS: Syphilis Nonreactive (Nonreactive)
[2024-05-22] MEDS: RINGERS LACTATED 1000 ML 1,000 ML 999 ML IV (20:16)
--- NOTE | 2024-05-22 20:18 | EVENTNT_ITS ---
Documentation for date of: 05/22/24 Event Note Event Note: An 89-year-old male presented to the ER with the chief complaint of acute confusion and altered mental status. The symptoms began on the morning of presentation when the patient reported feeling unwell and fatigued. He exhibited mild cough but denied fever, dyspnea, or other flu-like symptoms. He attended two medical appointments that day, one for a chiropractic visit and another with his primary care provider for evaluation of hip and back pain. While returning home, he became progressively confused, with slurred speech and an inability to respond appropriately. His friend, who was driving, noted that he was unable to stand, appeared incoherent, and attempted to exit the car inappropriately. EMS was called, and upon arrival, he was found in the driveway responding only with his name or I do not know. There was no reported history of recent illness, preceding neurological symptoms, or trauma. 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 He has no history of prior surgeries. He does not smoke or consume alcohol. His friend, who lives with him, reports that his eating habits have deteriorated in recent years, particularly after the passing of his . He has some baseline balance issues and requires assistance with ambulation. The patient has a healthcare proxy, his son, who has indicated that while intubation is acceptable for short-term management, prolonged mechanical ventilation would not be in accordance with the patient?s wishes. In the Emergency Department, the patient?s vital signs were recorded as temperature 97.3?F, heart rate 93 bpm, respiratory rate 16, and blood pressure 128/61 mmHg. Stroke alert was activated. A CT head was performed but was nondiag nostic due to extensive patient motion. Laboratory results showed WBC 11.4, hemoglobin 13.1, platelets 165, sodium 137, potassium 4.2, creatinine 1.3, glucose 244, magnesium 1.1, and procalcitonin 5.61. Neurology evaluated the patient and suspected a reversible toxic, metabolic, infectious, or hemodynamic cause rather than an ischemic or ictal event. The patient subsequently became restless, agitated, and combative, requiring intubation for airway protection. Post-intubation blood pressure spiked to 238/162 mmHg. EKG revealed atrial fibrillation with rapid ventricular response, and he was started on a diltiazem drip for rate control, which was later discontinued due to hypotension. Repeat CT head was negative for acute hemorrhage, mass effect, or midline shift. CT of the chest and abdomen revealed significant bibasilar pneumonia, raising concern for aspiration pneumonia. The patient was admitted to the ICU for further management.
[2024-05-22 20:23] LABS: Ammonia 21 uMol/L (11-32)
[2024-05-22 20:30] LABS: Lactate (Lactic Acid) 4.9 mMol/L (0.4-2.0)
[2024-05-22] MEDS: SODIUM CHLORIDE 0.9% 1000 ML 1,000 ML 125 ML IV (20:51)
--- NOTE | 2024-05-22 21:42 | ESHP_ITS ---
Documentation for date of: 05/22/24 [facility] History of Present Illness History of present illness: Patient is a 88-year-old male with past medical history of hypertension, CAD s/p stent x 2, diabetes mellitus not on insulin, acoustic neuroma, and BPH that presented to the ED for AMS. Per family patient was seeing his PCP today at [facility] for wanting a hip injection but was refused. 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 In ED patient became more altered and it was decided to intubate patient for airway protection. Patient also developed what appeared to be A-fib with RVR while in the ED and was given diltiazem push and started on drip, with subsequent hypotension and therefore diltiazem was stopped. Per family patient has been complaining of hip pain and headache recently. Today patient started having coughing bouts and was given Robitussin. Most information obtained from chart review and family. ROS unobtainable due to patient's current condition. Patient has allergies to penicillins, contrast, and shellfish per family Per family patient has past surgical history of cardiac angiogram with 2 stents placed Patient does not smoke, consume alcohol, or illicit drug use. Patient is full code CT head negative for any acute hemorrhage or mass effect. CT chest abdomen pelvis shows bilateral pneumonia with possible aspiration. Patient given IV antibiotics and IV fluids while in the ED. Exam Vital Signs Temp Pulse Resp BP Pulse Ox O2 Del Method O2 Flow Rate 99.2 F 78 18 93/53 L 100 Mechanical Ventilation 3 05/22/24 18:50 05/22/24 21:35 05/22/24 21:35 05/22/24 21:35 05/22/24 21:35 05/22/24 21:35 05/22/24 18:14 FiO2 75 05/22/24 19:56 Narrative Exam GENERAL: Sedated and on mechanical ventilation. Elderly male. HEENT: Normocephalic, atraumatic. PERRLA, nonicteric. HEART: Regular rate and rhythm, no murmurs, rubs or gallops. LUNGS: Decreased breath sounds right lower lobe. Mild wheezing on left lower lobe. On mechanical ventilation. ABDOMEN: Soft, non-tender, no guarding or rebound tenderness. There are no abnormal masses palpated. Active bowel sounds. EXTREMITIES: No edema noted. SKIN: Warm and dry, no jaundice or rashes noted. NEURO: Pupils reactive to light bilaterally. Unable to perform full assessment due to patient's current condition. Results: Labs 05/22/24 17:34 05/22/24 17:34 Labs: Short CBC 05/22/24 Range/Units 17:34 WBC 11.4 H (3.8-10.6) Thou/mm3 Hgb 13.1 L (13.5-16.0) g/dL Hct 37.9 L (41.0-53.0) % Plt Count 165 (140-440) Thou/mm3 BMP 05/22/24 17:34 Sodium 137 Potassium 4.2 Chloride 98 Carbon Dioxide 26.2 BUN 26 H Creatinine 1.3 Glucose 244 H Calcium 9.1 Cardiac Enzymes 05/22/24 Range/Units 17:34 Troponin I < 0.020 (0.0-0.045) ng/mL Liver Function 05/22/24 Range/Units 17:34 Total Bilirubin 1.2 (0.3-1.2) mg/dL AST 24 (0-34) U/L ALT 17 (10-49) U/L Alkaline Phosphatase 55 (46-116) U/L Albumin 3.9 (3.4-4.8) gm/dL Urine 05/22/24 Range/Units 19:07 Urine Color Colorless A (Lt Yel-Yel) Urine Clarity Clear (Clear/Hazy) Urine pH 6.5 (5.0-7.0) Ur Specific [place] 1.010 (1.001-1.035) Urine Protein 1+ A (Neg - Trace) Urine Glucose (UA) 3+ A (Negative) ABG Interpretation ABG results: 05/22/24 19:52 ABG pH 7.39 ABG pCO2 40 ABG pO2 141 H ABG HCO3 24 ABG O2 Saturation 100 H ABG Base Excess -1 Quality Measures Quality Measures VTE prophylaxis and sepsis Current suspected stage: septic shock (LA >4 and/or hypotension) Sepsis reassessment completed at (date): 05/22/24 Sepsis reassessment completed at (time): 21:05 Possible source: pulmonary Blood cultures ordered: yes Antibiotic ordered: Yes Advance care planning discussed with:: child Medications Home Medications and Allergies Home Medications ?Medication ?Instructions ?Recorded ?Confirmed ?Type atorvastatin 10 mg tablet (Lipitor) 10 mg PO QDAY #0 t abs 02/28/16 05/22/24 History gabapentin 300 mg capsule 300 mg PO TID ##0 02/28/16 0 05/22/24 History (Neurontin) metformin 500 mg tablet 500 mg PO TID #0 tabs 05/22/24 History (Glucophage) amlodipine 5 mg tablet (Norvasc) 5 mg PO QDAY 03/15/19 05/22/24 History dutasteride 0.5 mg capsule 0.5 mg PO QDAY 03/15/19 History (Avodart) metoprolol succinate 50 mg capsule 50 mg PO QDAY 03/1505/22/24 History sprinkle, ext. release 24 hr olmesartan 40 mg tablet (Benicar) 40 mg PO QDAY 05/22/24 History fluticasone propionate 50 1 spray intranasal DAILY 05/22/24 History mcg/actuation nasal spray,suspension Allergies Allergy/AdvReac Type Severity Reaction Status Date / Time Penicillins Allergy Severe HIVES, RASH Verified 07/18/19 18:40 shellfish derived Allergy Intermediate Swelling Verified 07/18/19 18:40 Iodine and Iodide Containing AdvReac Severe Vomiting, Verified 07/18/19 18:40 Produc SWELLING Visit Medications Acetaminophen (Acetaminophen 325 Mg Tablet) 650 mg PO Q6H PRN PRN Reason: Fever >101.5 Stop: 06/21/24 21:34 Dextrose (Dextrose 50%-Water Inj 50 Ml Syringe) 25 ml IV Q15MIN PRN PRN Reason: BG 50-70 responsive npo pt Stop: 06/21/24 21:34 Dextrose (Dextrose 50%-Water Inj 50 Ml Syringe) 50 ml IV Q15MIN PRN PRN Reason: BG <50 OR BG <70 & pt unresponsive Stop: 06/21/24 21:34 Glucagon (Glucagon Inj 1 Mg Vial) 1 mg IM Q15MIN PRN PRN Reason: BG <70, and no IV access Heparin Sodium (Porcine) (Heparin Sod Inj 5000 Unit/Ml Vial) 5,000 unit SC Q12HR JAQUELIN Stop: 06/06/24 08:59 Fentanyl Citrate (Sublimaze Inj 2,500 Mcg/250 Ml Bag) 2,500 mcg in 250 mls @ 2.5 mls/hr IV .Q24H PRN; Protocol PRN Reason: PER PROTOCOL Stop: 05/27/24 18:19 Last Titration: 05/22/24 20:32 Dose: 125 mcg/hr, 12.5 mls/hr Midazolam HCl (Versed Pf Inj In Ns Premix) 100 mg in 100 mls @ 1 mls/hr IV .Q24H PRN; Protocol PRN Reason: PER PROTOCOL Stop: 05/27/24 18:16 Last Titration: 05/22/24 20:37 Dose: 3 mg/hr, 3 mls/hr Magnesium Sulfate (Magnesium Sulfate Ivpb) 4 gm in 50 mls @ 12.5 mls/hr IV X1 ONE Stop: 05/22/24 22:25 Last Admin: 05/22/24 18:55 Dose: 12.5 mls/hr Propofol (Diprivan Ivpb) 1,000 mg in 100 mls @ 2.245 mls/hr IV .Q24H PRN; Protocol PRN Reason: PER PROTOCOL Stop: 06/21/24 19:09 Last Titration: 05/22/24 20:45 Dose: 0 mcg/kg/min, 0 mls/hr Sodium Chloride (Ns) 1,000 mls @ 125 mls/hr IV .Q8H JAQUELIN Stop: 06/21/24 20:38 Last Admin: 05/22/24 20:51 Dose: 125 mls/hr Cefepime HCl 2 gm/ Sodium (Chloride) 50 mls @ 100 mls/hr IV Q8HR JAQUELIN Stop: 05/29/24 21:21 Dextrose (D10w 1000 Ml) 1,000 mls @ 100 mls/hr IV .Q10H JAQUELIN Stop: 05/23/24 07:44 Metronidazole (Flagyl 500 Mg Iv) 500 mg in 100 mls @ 200 mls/hr IV Q8HR JAQUELIN Stop: 05/29/24 21:39 Insulin Human Lispro (Insulin Lispro (Admelog) 1 Unit/0.01 Ml Unit) 0 unit SC AC JAQUELIN; Protocol Stop: 06/22/24 07:29 Ondansetron HCl (Ondansetron Inj 2 Mg/Ml Inj 2 Ml) 4 mg IV Q4HR PRN PRN Reason: NAUSEA OR VOMITING Stop: 06/21/24 17:24 Pantoprazole Sodium (Pantoprazole Inj 40 Mg Vial) 40 mg IVP QDAY COUNT INCLUDES THE [facility] Stop: 06/22/24 08:59 Pharmacy Consult (Vancomycin Pharmacy To Dose 1 Each Each) 1 each IV QDAY COUNT INCLUDES THE [facility] Stop: 06/22/24 08:59 Discontinued Medications Diltiazem HCl (Diltiazem Inj 5 Mg/Ml Vial 5 Ml) 20 mg IV X1 ONE Stop: 05/22/24 18:51 Last Admin: 05/22/24 18:54 Dose: 20 mg Etomidate (Etomidate Inj 2 Mg/Ml Vial 10 Ml) 20 mg IVP X1 ONE Stop: 05/22/24 18:18 Last Admin: 05/22/24 18:28 Dose: 20 mg Sodium Chloride (Ns) 1,000 mls @ 999 mls/hr IV .Q1H1M ONE Stop: 05/22/24 19:50 Last Admin: 05/22/24 19:06 Dose: Not Given Diltiazem HCl (Diltiazem In D5w 125 Mg) 125 mg in 125 mls @ 5 mls/hr IV .Q24H JAQUELIN; Protocol Stop: 06/21/24 18:50 Last Titration: 05/22/24 19:49 Dose: 0 mg/hr, 0 mls/hr Sodium Chloride (Ns) 1,000 mls @ 150 mls/hr IV .Q6H40M ONE Stop: 05/23/24 01:40 Last Admin: 05/22/24 19:05 Dose: 150 mls/hr Ceftriaxone Sodium 1,000 mg/ (Sodium Chloride) 50 mls @ 100 mls/hr IV X1 ONE Stop: 05/22/24 20:19 Last Infusion: 05/22/24 20:33 Dose: Infused Lactated Ringer's (Lactated Ringers) 1,000 mls @ 999 mls/hr IV .Q1H1M ONE Stop: 05/22/24 21:06 Last Admin: 05/22/24 20:16 Dose: 999 mls/hr Lorazepam (Lorazepam 2 Mg/Ml Vial) 1 mg IVP X1 ONE Stop: 05/22/24 17:48 Last Admin: 05/22/24 17:53 Dose: 1 mg Rocuronium [place] (Rocuronium Inj 10 Mg/Ml Vial 10 Ml) 40 mg IVP X1 ONE Stop: 05/22/24 18:18 Last Admin: 05/22/24 18:28 Dose: 40 mg Sodium Chloride (Sodium Chloride Rt 10% 15 Ml Nebu) 5 ml INH X1 ONE Stop: 05/22/24 19:02 Assessment & Plan Plan Patient is a 88-year-old male with past medical history of hypertension, CAD s/p stent x 2, diabetes mellitus not on insulin, acoustic neuroma, and BPH that presented to the ED for AMS. Patient intubated while in ED for airway protection due to acute encephalopathy. Patient admitted to ICU for close monitoring and ventilation management. Neuro #Acute encephalopathy Infectious VS metabolic Imaging showing patient has pneumonia in both lobes with possible aspiration pneumonia CT of the head negative for any acute changes or mass effect U-Tox negative Patient started on broad-spectrum antibiotics vancomycin, cefepime, Flagyl Blood cultures pending Urine cultures pending Cocci pending ABG showed no CO2 retention, ammonia levels within normal limits Will consider MRI/EEG should patient not improve with antibiotics #Sedated with propofol and fentanyl Daily sedation holidays to assess mentation #History of acoustic neuroma Continue follow-up outpatient Cardiac #Shock Septic VS cardiogenic Patient currently with tachycardia, leukocytosis, lactic acid of 4.9 with source of infection being pneumonia, patient also having A-fib with RVR after intubation Cardiac echo pending Will wean off pressors as able #A-fib with RVR?resolved Patient went into A-fib with RVR after intubation and was given diltiazem push and started on diltiazem drip Patient now sinus rhythm with soft BPs, hold diltiazem drip. 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 Renally dose medications Avoid nephrotoxic agents Continue monitor creatinine #Lactic acidosis Likely secondary to infection Patient given IV fluids Trending lactic acid #Hypomagnesemia Continue to monitor and replete Heme #Normocytic anemia No current signs of active bleeding Unsure if patient's had colonoscopy done before Will ask patient once cognition improves regarding for any signs of melena or bleeding per rectum Endo #History of diabetes mellitus Patient signed scale insulin Follow-up A1c ID #Community-acquired pneumonia Imaging showing pneumonia in both lobes Will cover for anaerobes, gram-negative's, and MRSA Pro-[place]ard elevated CRP elevated Follow-up blood cultures Follow up cocci results Diet: NPO DVT prophylaxis: Heparin CODE STATUS: Full code Case discussed with attending physician Dr. Ham Robles MD PGY3 Attending Provider Attestation/Addendum Pt was evaluated and plan formulated together with the housestaff team. I have reviewed the residents note above and agree with most of its content. Please refer to the residents note for additional details.
[2024-05-22] MEDS: CEFEPIME INJ 2 GM in SODIUM CHLORIDE 0.9% 50 ML IV (22:10)
[2024-05-22] MEDS: DEXTROSE 10%-WATER 1000 ML 1,000 ML 100 ML IV (22:10)
[2024-05-22] MEDS: metroNIDAZOLE/NS 500 MG IVPB 500 MG/100 ML BAG 200 MG IV (22:44)
[2024-05-22] MEDS: VANCOMYCIN/NS 1 GM IVPB 200 ML IV (23:20)
[2024-05-22 23:22] LABS: Reflex Lactate? Y
[2024-05-23] VITALS (85 sets, daily range): BP systolic 57–184; BP diastolic 37–124; PULSE 57–139; RESP 5–25; TEMP 36.3–37.2; O2SAT 89–100; BMI 25.9
--- NOTE | 2024-05-23 00:01 | PC.NURSE ---
called housekeeping and laundry team leader for 4g bag of Mg+, as it is not stocked in ED pyxis.
[2024-05-23 00:27] LABS: Lactic Acid, 3 HR 3.3 mMol/L (0.4-2.0)
[2024-05-23] MEDS: Magnesium Sulfate 4 GM Ivpb 4 GM/50 ML BAG IV (00:51)
--- NOTE | 2024-05-23 01:16 | PC.NURSE ---
Pt's blood pressure has dropped to 82/[address] Saucedo is at the bedside, wants norepinephrine started at this time.
[2024-05-23] MEDS: Norepinephrine/D5W 8mg/250ml 8 MG/250 ML BAG 7.017 MG IV ×2 (01:20→14:20)
[2024-05-23] MEDS: MIDAZOLAM/NS 100 MG IVPB 100 MG/100 ML BAG IV (01:20)
[2024-05-23] MEDS: fentaNYL 2,500 MCG/250 ML BAG 2,500 MCG/250 ML BAG 17.5 MCG IV (01:31)
[2024-05-23] MEDS: SODIUM CHLORIDE 0.9% 1000 ML 1,000 ML 125 ML IV (04:52)
[2024-05-23 04:53] LABS: Basophils # (Auto) 0.1 Thou/mm3 (0.0-0.2); Basophils % (Auto) 0 % (0-2.5); Eosinophils # (Auto) 0.2 Thou/mm3 (0.0-0.5); Eosinophils % (Auto) 2 % (0-10); Hematocrit 32.5 % (41.0-53.0); Hemoglobin 11.5 g/dL (13.5-16.0); Immature Granulocytes % (Auto) 0 % (0-0); Immature Granulocytes Auto 0.04 Thou/mm3 (0.00-0.00); Lymphocytes # (Auto) 1.7 Thou/mm3 (1.0-4.8); Lymphocytes % (Auto) 15 % (10-50); Mean Corpuscular HGB Conc 35.4 g/dl (31.0-37.0); Mean Corpuscular Hemoglobin 32.2 pg (25.0-35.0); Mean Corpuscular Volume 91 fL (80-100); Monocytes # (Auto) 0.3 Thou/mm3 (0.0-0.8); Monocytes % (Auto) 3 % (0-12); Neutrophils # (Auto) 9.2 Thou/mm3 (1.8-7.7); Neutrophils % (Auto) 80 % (37-80); Nucleated Red Blood Cell % 0 /100 WBC (0); Platelet Count 149 Thou/mm3 (140-440); RDW Standard Deviation 44.4 fL (35.1-43.9); Red Blood Count 3.57 Miln/mm3 (4.50-5.90); White Blood Count 11.5 Thou/mm3 (3.8-10.6)
[2024-05-23 05:20] LABS: Glucose Estimated Average 209 mg/dL (80-131); Hemoglobin A1C 8.9 % Hgb (4.8-6.0)
[2024-05-23 05:26] LABS: Alanine Aminotransferase 14 U/L (10-49); Albumin, Serum 3.2 gm/dL (3.4-4.8); Albumin/Globulin Ratio 1.5 (1.2-2.2); Alkaline Phosphatase 42 U/L (46-116); Anion Gap 9 (7-16); Aspartate Amino Transferase 19 U/L (0-34); BUN/Creatinine Ratio 28 Ratio (12-20); Bilirubin,Total 0.9 mg/dL (0.3-1.2); Blood Urea Nitrogen 22 mg/dL (9-23); Calcium 8.1 mg/dL (8.3-10.6); Calcium (Corrected) 8.7 mg/dL (8.5-10.1); Carbon Dioxide 24.7 mMol/L (20.0-31.0); Cardiac Risk Estimate 1.9 RATIO (4.0-6.7); Chloride 103 mMol/L (98-107); Cholesterol 80 mg/dL (132-200); Creatinine (Component) 0.8 mg/dL (0.6-1.3); Estimated Creatinine Clearance 60.8 mL/min (>60); Globulin 2.1 gm/dL (2.3-3.5); Glucose 205 mg/dL (74-106); HDL Cholesterol 42 mg/dL (40-60); LDL Cholesterol,Calculated 27 mg/dL (0-130); Osmolality,Calculated 283 (275-295); Potassium 3.6 mMol/L (3.4-5.1); Sodium 137 mMol/L (136-145); Thyroid Stimulating Hormone 1.76 uIU/mL (0.55-4.78); Total Protein 5.3 gm/dL (5.7-8.2); Triglycerides 54 mg/dL (30-150); eGFR > 60 See Note
[2024-05-23] MEDS: CEFEPIME INJ 2 GM in SODIUM CHLORIDE 0.9% 50 ML IV (05:46)
[2024-05-23] MEDS: metroNIDAZOLE/NS 500 MG IVPB 500 MG/100 ML BAG 200 MG IV ×3 (06:14→21:59)
[2024-05-23] MEDS: SODIUM CHLORIDE 0.9% 1000 ML 1,000 ML 75 ML IV (06:59)
[2024-05-23] MEDS: INSULIN LISPRO (AdmeLOG) 1 UNIT/0.01 ML UNIT SC ×2 (07:10→18:14)
[2024-05-23 08:29] LABS: Base Excess 1 (-3-3); HCO3 26 mEq/L (20-26); Inspired Oxygen, FIO2 40 %; O2 Saturation 98 % (91-98); PCO2 44 mmHg (32.0-48.0); PO2 93 mmHg (83-108); pH, Arterial 7.38 (7.35-7.45)
[2024-05-23 08:30] LABS: Allen Test Performed/OK; Puncture Site Right Radial
[2024-05-23] MEDS: PANTOPRAZOLE INJ 40 MG VIAL IVP (08:47)
[2024-05-23] MEDS: HEPARIN SOD INJ 5000 UNIT/ML VIAL SC (08:47)
[2024-05-23] MEDS: POTASSIUM CHLORIDE 10% 20 MEQ/15 ML UDC 40 MEQ GT (08:47)
[2024-05-23] MEDS: fentaNYL 2,500 MCG/250 ML BAG 2,500 MCG/250 ML BAG 22.5 MCG IV (09:43)
[2024-05-23 11:09] LABS: Lactate (Lactic Acid) 1.9 mMol/L (0.4-2.0)
--- NOTE | 2024-05-23 11:15 | PC.DIETICIAN ---
Nutrition prescription If EN is initiated, consider: Vital 1.2 at 20 ml/hr via OG tube by pump. Advance 10 ml every 8 hrs to goal rate of 55 ml/hr x 24 hrs. If no IV fluids, water flushes of 25 ml/hr (or per MD).
--- NOTE | 2024-05-23 11:33 | ESPR_ITS ---
<Statement entered by Veronica Newell MD - 05/24/24 13:18> TOTAL CC TIME: 45 MIN I saw and evaluated the patient. I reviewed the resident?s note and agree with findings and plan as documented in the resident?s note. Upon my evaluation, this patient had a high probability of imminent or life- threatening deterioration due to acute hypoxic respiratory failure due to pneumonia which required my direct attention, intervention, and personal management. This time is exclusive of time spent on procedures, which are documented separately if performed. Follow-up sputum culture results Continue assist-control volume control 60 cc per ideal body weight. Vent dynamics are at goal. Wean to pressure support when patient wakes up. Currently off sedation Family updated at bedside continue broad-spectrum antibiotics Documentation for date of: 05/23/24 Subjective Subjective Interval history: Samuel Archuleta is an 88-year-old male with a past medical history of hypertension, CAD s/p stent x 2, diabetes mellitus not on insulin, acoustic neuroma, and BPH that presented with AMS/encephalopathy. Per family, patient was at [facility] for hip injection but was refused. 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 Thus, patient was brought to the ED. Given altered mental status, stroke alert called and teleneurology consulted who favored reversible pathology of toxic/metabolic/infectious etiology and less likely to be ischemic or ictal. If testing for above causes unrevealing, consider obtaining MRI and EEG. While trying to obtain CT head, patient noted to become significantly agitated.he was given 1 mg of Ativan, however agitation worsened as he began biting and hitting staff members. Thus, decision was made to intubate patient for better medical management and further imaging. After intubation, patient went to A-fib with RVR with heart rate of 161. Given 20 mg Cardizem and started on Cardizem drip blood with BP 200/100 but noted to become hypotensive and so drip stopped. 05/23: Seen and examined at bedside in ICU. Patient originally sedated with Versed and fentanyl drips, and will transition to propofol and fentanyl. Initial blood gas showed normal pH, pCO2, and pO2. Ventilator currently set at VT 400, RR 18, PEEP 5, FiO2 40%. Plateau pressure 16 cm H2O. Given that patient is saturating close to 100%, will decrease FiO2 requirements and decrease sedation and see how patient does on pressure support. In early afternoon, patient noted to become agitated after weaned off of fentanyl so had to start on precedex drip. Exam Vital Signs Temp Pulse Resp BP Pulse Ox O2 Del Method O2 Flow Rate 98.9 F 72 18 96/49 L 97 Mechanical Ventilation 3 05/23/24 08:00 05/23/24 10:15 05/23/24 09:00 05/23/24 10:15 05/23/24 10:15 05/23/24 06:20 05/22/24 18:14 FiO2 40 05/23/24 10:13 Narrative Exam General: sedated and mechanically ventilated HEENT: NC/AT, mucous membranes moist, bilateral sclera anicteric Cardiovascular: regular rate and rhythm, S1/S2 present, no murmurs appreciated Pulmonary: clear to auscultation bilaterally, no rales/rhonchi/wheezes Abdominal: soft, non-tender, non-distended, no rebound/guarding, normal bowel sounds present Musculoskeletal: normal ROM, no peripheral edema Skin: warm and dry, intact, no rashes Objective Labs 05/24/24 04:53 05/24/24 04:53 Labs: Laboratory Results - last 24 hr 05/22/24 05/22/24 05/22/24 17:34 19:07 19:47 WBC 11.4 H RBC 4.13 L Hgb 13.1 L Hct 37.9 L MCV 92 MCH 31.7 MCHC 34.6 RDW Std Deviation 44.5 H Plt Count 165 Neut % (Auto) 77 Lymph % (Auto) 19 Beckham % (Auto) 3 Eos % (Auto) 0 Baso % (Auto) 0 Neut # (Auto) 8.8 H Lymph # (Auto) 2.1 Beckham # (Auto) 0.4 Eos # (Auto) 0.0 Baso # (Auto) 0.1 Immature Gran # (Auto) 0.02 H Absolute Nucleated RBC 0.00 Immature Gran % 0 Nucleated RBC % 0 ESR 11 PT 12.4 H INR 1.1 APTT 27.5 Puncture Site ABG pH ABG pCO2 ABG pO2 ABG HCO3 ABG O2 Saturation ABG Base Excess FiO2 Sodium 137 Potassium 4.2 Chloride 98 Carbon Dioxide 26.2 Anion Gap 13 BUN 26 H Creatinine 1.3 Estim Creat Clear Calc Not Performed. eGFR 53 L BUN/Creatinine Ratio [address] Glu mg/dL Hemoglobin A1c Calculated Osmolality 286 Lactic Acid Calcium 9.1 Corrected Calcium 9.2 Magnesium 1.1 L Total Bilirubin 1.2 AST 24 ALT 17 Alkaline Phosphatase 55 Ammonia 21 Troponin I < 0.020 C-Reactive Prot, Quant 6.0 H Total Protein 6.1 Albumin 3.9 Globulin 2.2 L Albumin/Globulin Ratio 1.8 Triglycerides Cholesterol LDL Cholesterol, Calc HDL Cholesterol Cholesterol/HDL Ratio Vitamin B12 241 Procalcitonin 5.61 H TSH 3.77 Free T4 1.19 Ur Collection Type Clean Catch Urine Color Colorless A Urine Clarity Clear Urine pH 6.5 Ur Specific [place] 1.010 Urine Protein 1+ A Urine Glucose (UA) 3+ A Urine Ketones 1+ A Urine Blood 1+ A Urine Nitrite Negative Urine Bilirubin Negative Urine Urobilinogen (Auto) Negative Ur Leukocyte Esterase Negative Urine RBC 2 Urine WBC 1 Ur Squamous Epith Cells 0 Urine Bacteria None Urine Opiates Screen Negative Urine Fentanyl Screen Negative Ur Barbiturates Screen Negative U Amphetamin/Meth Scrn Negative U Benzodiazepines Scrn Negative U Cocaine Metab Screen Negative U Marijuana (THC) Screen Negative Syphilis Serology Nonreactive HCG (Qual) Negative 05/22/24 05/22/24 05/23/24 19:52 20:19 00:07 WBC RBC Hgb Hct MCV MCH MCHC RDW Std Deviation Plt Count Neut % (Auto) Lymph % (Auto) Beckham % (Auto) Eos % (Auto) Baso % (Auto) Neut # (Auto) Lymph # (Auto) Beckham # (Auto) Eos # (Auto) Baso # (Auto) Immature Gran # (Auto) Absolute Nucleated RBC Immature Gran % Nucleated RBC % ESR PT INR APTT Puncture Site Right Radial ABG pH 7.39 ABG pCO2 40 ABG pO2 141 H ABG HCO3 24 ABG O2 Saturation 100 H ABG Base Excess -1 FiO2 75 Sodium Potassium Chloride Carbon Dioxide Anion Gap BUN Creatinine Estim Creat Clear Calc eGFR BUN/Creatinine Ratio Glucose Estimated Ave Glu mg/dL Hemoglobin A1c Calculated Osmolality Lactic Acid 4.9 H* 3.3 H Calcium Corrected Calcium Magnesium Total Bilirubin AST ALT Alkaline Phosphatase Ammonia Troponin I C-Reactive Prot, Quant Total Protein Albumin Globulin Albumin/Globulin Ratio Triglycerides Cholesterol LDL Cholesterol, Calc HDL Cholesterol Cholesterol/HDL Ratio Vitamin B12 Procalcitonin TSH Free T4 Ur Collection Type Urine Color Urine Clarity Urine pH Ur Specific [place] Urine Protein Urine Glucose (UA) Urine Ketones Urine Blood Urine Nitrite Urine Bilirubin Urine Urobilinogen (Auto) Ur Leukocyte Esterase Urine RBC Urine WBC Ur Squamous Epith Cells Urine Bacteria Urine Opiates Screen Urine Fentanyl Screen Ur Barbiturates Screen U Amphetamin/Meth Scrn U Benzodiazepines Scrn U Cocaine Metab Screen U Marijuana (THC) Screen Syphilis Serology HCG (Qual) 05/23/24 05/23/24 05/23/24 04:40 08:22 10:50 WBC 11.5 H RBC 3.57 L Hgb 11.5 L Hct 32.5 L MCV 91 MCH 32.2 MCHC 35.4 RDW Std Deviation 44.4 H Plt Count 149 Neut % (Auto) 80 Lymph % (Auto) 15 Beckham % (Auto) 3 Eos % (Auto) 2 Baso % (Auto) 0 Neut # (Auto) 9.2 H Lymph # (Auto) 1.7 Beckham # (Auto) 0.3 Eos # (Auto) 0.2 Baso # (Auto) 0.1 Immature Gran # (Auto) 0.04 H Absolute Nucleated RBC 0.00 Immature Gran % 0 Nucleated RBC % 0 ESR PT INR APTT Puncture Site Right Radial ABG pH 7.38 ABG pCO2 44 ABG pO2 93 D ABG HCO3 26 ABG O2 Saturation 98 ABG Base Excess 1 FiO2 40 Sodium 137 Potassium 3.6 D Chloride 103 Carbon Dioxide 24.7 Anion Gap 9 BUN 22 Creatinine 0.8 D Estim Creat Clear Calc 60.8 L eGFR > 60 BUN/Creatinine Ratio 28 H Glucose [address] Glu mg/dL 209 H Hemoglobin A1c 8.9 H Calculated Osmolality 283 Lactic Acid 1.9 Calcium 8.1 L Corrected Calcium 8.7 Magnesium 3.0 H Total Bilirubin 0.9 AST 19 ALT 14 Alkaline Phosphatase 42 L D Ammonia Troponin I C-Reactive Prot, Quant Total Protein 5.3 L Albumin 3.2 L D Globulin 2.1 L Albumin/Globulin Ratio 1.5 Triglycerides 54 Cholesterol 80 L LDL Cholesterol, Calc 27 HDL Cholesterol 42 Cholesterol/HDL Ratio 1.9 L Vitamin B12 Procalcitonin TSH 1.76 D Free T4 Ur Collection Type Urine Color Urine Clarity Urine pH Ur Specific [place] Urine Protein Urine Glucose (UA) Urine Ketones Urine Blood Urine Nitrite Urine Bilirubin Urine Urobilinogen (Auto) Ur Leukocyte Esterase Urine RBC Urine WBC Ur Squamous Epith Cells Urine Bacteria Urine Opiates Screen Urine Fentanyl Screen Ur Barbiturates Screen U Amphetamin/Meth Scrn U Benzodiazepines Scrn U Cocaine Metab Screen U Marijuana (THC) Screen Syphilis Serology HCG (Qual) ABG Interpretation ABG results: 05/22/24 05/23/24 19:52 08:22 ABG pH 7.39 7.38 ABG pCO2 40 44 ABG pO2 141 H 93 D ABG HCO3 24 26 ABG O2 Saturation 100 H 98 ABG Base Excess -1 1 Quality Measures Quality Measures VTE prophylaxis and sepsis Current suspected stage: ruled out Possible source: pulmonary Blood cultures ordered: yes Antibiotic ordered: Yes Advance care planning discussed with:: child Assessment & Plan Assessment Current Active Medications: Generic Name Dose Route Start Last Admin Trade Name Freq PRN Reason Stop Dose Admin Acetaminophen 650 mg 05/22/24 21:35 Acetaminophen 325 Mg Tablet PO 06/21/24 21:34 Q6H PRN Fever >101.5 Azithromycin 500 mg 05/23/24 10:35 Azithromycin 250 Mg Tablet PO 05/26/24 10:34 QDAY JAQUELIN Dextrose 25 ml 05/22/24 21:35 Dextrose 50%-Water Inj 50 Ml Syringe IV 06/21/24 21:34 Q15MIN PRN BG 50-70 responsive npo pt Dextrose 50 ml 05/22/24 21:35 Dextrose 50%-Water Inj 50 Ml Syringe IV 06/21/24 21:34 Q15MIN PRN BG <50 OR BG <70 & pt unresponsive Glucagon 1 mg 05/22/24 21:35 Glucagon Inj 1 Mg Vial IM Q15MIN PRN BG <70, and no IV access Metronidazole 500 mg in 100 mls @ 200 mls/hr 05/22/24 21:40 05/23/24 06:44 Flagyl 500 Mg Iv IV 05/29/24 21:39 Infused Q8HR JAQUELIN Infusion Norepinephrine/Dextrose 8 mg in 250 mls @ 7.017 mls/hr 05/22/24 22:04 05/23/24 10:51 Levophed In D5w 8mg/250ml IV 06/21/24 22:03 0.05 mcg/kg/min .Q24H PRN 7.017 mls/hr PER PROTOCOL Titration Protocol 0.05 MCG/KG/MIN Fentanyl Citrate 2,500 mcg in 250 mls @ 2.5 mls/hr 05/23/24 01:20 05/23/24 11:00 Sublimaze Inj 2,500 Mcg/250 Ml Bag IV 05/27/24 18:19 75 mcg/hr .Q24H PRN 7.5 mls/hr PER PROTOCOL Titration Protocol 25 MCG/HR Sodium Chloride 1,000 mls @ 75 mls/hr 05/23/24 05:56 05/23/24 06:59 Ns IV 05/23/24 19:15 75 mls/hr .[id number] ONE Administration Ceftriaxone Sodium/Dextrose 2 gm in 50 mls @ 100 mls/hr 05/23/24 14:00 Rocephin/D5w 2gm IV 05/30/24 13:59 QDAY JAQUELIN Insulin Human Lispro 0 unit 05/23/24 06:00 05/23/24 07:10 Insulin Lispro (Admelog) 1 Unit/0.01 Ml Unit SC 06/22/24 05:59 1 unit Q6HR JAQUELIN Administration Protocol Ondansetron HCl 4 mg 05/22/24 17:25 Ondansetron Inj 2 Mg/Ml Inj 2 Ml IV 06/21/24 17:24 Q4HR PRN NAUSEA OR VOMITING Pantoprazole Sodium 40 mg 05/23/24 09:00 05/23/24 08:47 Pantoprazole Inj 40 Mg Vial IVP 06/22/24 08:59 40 mg QDAY JAQUELIN Administration Plan Samuel Archuleta is an 88-year-old male with a past medical history of hypertension, CAD s/p stent x 2, diabetes mellitus not on insulin, acoustic neuroma, and BPH who presented with acute encephalopathy and was sedated and intubated for combativeness and admitted to ICU for further management. Neurological #Acute encephalopathy, infectious vs metabolic CT C/A/P: bilateral pneumonia with possible aspiration. CT head: negative for any acute changes or mass effect. U-Tox negative. No hypercapnia on ABG and ammonia wnl. Vancomycin and cefepime (05/22-05/23) - Tele-neuro consulted, recommend working up reversible metabolic/toxic causes first prior to MRI/EEG - Flagyl (05/22-) - Ceftriaxone (05/23-) - Azithromycin 500 mg x3 days (05/23-) - Blood cultures pending - Urine cultures pending - Cocci pending #Sedated with precedex and fentanyl - Sedation holidays to assess mentation #History of acoustic neuroma - Continue follow-up outpatient Cardiovascular #Shock, septic vs cardiogenic Tachycardia, leukocytosis, and lactic acid 4.9 + PNA -> sepsis A-fib with RVR after intubation - Cardiac echo pending - Will wean off pressors as able #A-fib with RVR, resolved Went into A-fib with RVR after intubation and given diltiazem push and started on diltiazem drip Now sinus rhythm with soft BPs -> hold diltiazem drip #CAD s/p stents #History of hypertension Holding home meds for now in setting of low BPs Pulmonary #Intubated and mechanically ventilated Intubated and mechanically ventilated for airway protection due to encephalopathy - Daily SBT's Gastrointestinal No acute/active disease Renal #CKD stage II, 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 - Renally dose medications, avoid nephrotoxic agents #Lactic acidosis, likely secondary to sepsis Given IV fluids - Trend lactic acid #Hypomagnesemia - Continue to monitor and replete Heme/onc #Normocytic anemia No current signs of active bleeding Unsure if patient's had colonoscopy done before, will ask once cognition improves regarding for any signs of melena or bleeding per rectum Endocrine #History of diabetes mellitus A1c 8.9% - SSI Infectious disease #Community-acquired pneumonia CT C/A/P: bilateral pneumonia Will cover for anaerobes, gram-negative's, and MRSA Pro-Lenard elevated CRP elevated - Follow-up blood cultures - Follow up cocci results Hospital management: Disposition: intubated and ventilated in ICU Drips: precedex and fentanyl Fluids: none Diet: NPO Lines: PIV GI prophylaxis: pantoprazole IV daily Ovalle: placed CODE STATUS: full code ----- Plan discussed with attending physician Dr. Reece Minor MD PGY-1 Internal Medicine
[2024-05-23] MEDS: AZITHROMYCIN 250 MG TABLET 500 MG PO (11:50)
[2024-05-23 12:53] LABS: Cocci Serology, IgM Negative (Negative)
[2024-05-23 13:00] LABS: Lactate (Lactic Acid) 2.1 mMol/L (0.4-2.0)
[2024-05-23] MEDS: DEXMEDETOMIDINE 200 MCG IVPB 200 MCG/50 ML BOTTLE IV (13:34)
[2024-05-23] MEDS: cefTRIAXone/D5w 2gm 2 GM/50 ML BAG IV (14:15)
[2024-05-23 15:59] LABS: Reflex Lactate? Y
[2024-05-23] MEDS: DEXMEDETOMIDINE 200 MCG IVPB 200 MCG/50 ML BOTTLE 11.226 MCG IV ×2 (16:00→19:39)
--- NOTE | 2024-05-23 16:30 | PC.SS ---
TECHNICAL SERVICES LIBRARIAN conducted bedside contact with the patient.? At bedside with the patient was son, Demario Bhagat .? Information obtained from patient?s son to complete assessment.? Patient resides at home with roommate, Kelly Lundberg.? Patient is retired.? Patient is a [employer] .? Prior to admission the patient did not utilize DME to assist with ambulation.? Patient did not use home oxygen.? Patient was independent with completion of ADL?s.? Patient?s medical surrogate decision maker is son, Demario Bhagat.? Patient?s PCP is Dr. Dietrich.? Patient?s ocean transportation intermediary is Dr. Ratliff.? information services manager will discuss discharge needs at an appropriate future time.? No further intervention required at this time, manager social media will be available to address any further concerns.? Next of Kin: Demario Olayinka D/C Plan: Pending
[2024-05-23 17:01] LABS: Lactic Acid, 3 HR 1.6 mMol/L (0.4-2.0)
--- NOTE | 2024-05-23 20:10 | ECHO_ITS ---
Transthoracic Echo Report Ht (in): 67 Wt (lb): 165 Exam Location: Echo Lab Status: Inpatient Aircraft Captain: TREVOR Dumont^^^^ Indications: Procedure Performed: BP: 139 / 65 HR: 82 Technical Quality: Technically difficult study MEASUREMENTS (Male / Female) Normal Values 2D ECHO LV Diastolic Diameter PLAX 4.8 cm 4.2 - 5.9 / 3.9 - 5.3 cm LV Systolic Diameter PLAX 3.0 cm IVS Diastolic Thickness 1.1 cm 0.6 - 1.0 / 0.6 - 0.9 cm LVPW Diastolic Thickness 0.9 cm 0.6 - 1.0 / 0.6 - 0.9 cm LV Relative Wall Thickness 0.4 LVOT Diameter 1.9 cm Aortic Root Diameter 3.7 cm LA Systolic Diameter LX 3.0 cm 3.0 - 4.0 / 2.7 - 3.8 cm LA Volume Index 24.0 cm?/m? 16 - 28 cm?/m? Ascending Aorta Diameter 3.5 cm DOPPLER AV Peak Velocity 171.3 cm/s AV Peak Gradient 11.7 mmHg AV Mean Gradient 8.0 mmHg AV Velocity Time Integral 30.0 cm AI Peak Velocity 324.0 cm/s AI Peak Gradient 42.0 mmHg AI Pressure Half Time 419.0 ms LVOT Peak Velocity 90.9 cm/s LVOT Peak Gradient 3.3 mmHg LVOT Velocity Time Integral 19.9 cm LVOT Cardiac Index 2443.7 cm?/min?m? AV Area Cont Eq vti 1.9 cm? AV Area Cont Eq pk 1.5 cm? MV Area PHT 5.6 cm? MR Peak Velocity 241.0 cm/s MR Peak Gradient 23.2 mmHg Mitral E Point Velocity 64.0 cm/s Mitral A Point Velocity 79.5 cm/s Mitral E to A Ratio 0.8 LV E' Lateral Velocity 12.5 cm/s Mitral E to LV E' Lateral Ratio 5.1 LV E' Septal Velocity 10.7 cm/s Mitral E to LV E' Septal Ratio 6.0 TR Peak Velocity 299.0 cm/s TR Peak Gradient 35.8 mmHg PV Peak Velocity 103.0 cm/s PV Peak Gradient 4.2 mmHg RVOT Peak Velocity 57.6 cm/s FINDINGS Left Ventricle Normal left ventricular size,systolic function with no obvious regional wall motion abnormalities. The left ventricular ejection fraction is normal, estimated at 55-60%. There is grade I diastolic dysfunction of the left ventricle (impaired relaxation pattern). Right Ventricle The right ventricle is normal in size and systolic function. Estimated right ventricular systolic pressure is moderately elevated, 60 mmHg. Left Atrium The left atrium is normal by two-dimensional, color flow and Doppler imaging with no structural abnormalities, no thrombus formation present. Right Atrium The right atrium is normal by two-dimensional imaging, color flow and Doppler imaging with no structural abnormalities, no thrombus formation present. Atrial Septum The interatrial septum appears normal with no evidence of a shunt. Aorta The aorta is normal by two-dimensional, color flow and Doppler interrogation. Mitral Valve Mild thickening of the mitral valve leaflets. Mild mitral regurgitation. Mild mitral annular calcification. Aortic Valve Mild aortic valve regurgitation. Mild aortic valve stenosis. Mild thickening of the aortic valve leaflets. Tricuspid Valve There is moderate tricuspid regurgitation. Vessels The pulmonary artery appears normal. The inferior vena cava pulmonary and hepatic veins appear normal. Pericardium The pericardium is normal by two-dimensional imaging. There is no significant pericardial effusion. CONCLUSIONS indication: A-fib LV appears normal in size with mild LVH. estimated Ejection fraction 55-60%. Diastolic Dysfunction I. RV appears normal in size with moderately elevated RVSP of 60 mmHg. MV has mild thickening of leaflets, mild MR & MAC AOV has mild AI. Mild & thickening of leaflets. TV has moderate TR Jess Enriquez (Electronically Signed) Final Date: 23 May 2024 14:24
[2024-05-24] VITALS (85 sets, daily range): BP systolic 110–195; BP diastolic 62–99; PULSE 45–112; RESP 6–28; TEMP 36.1–37; O2SAT 89–100
[2024-05-24] MEDS: DEXMEDETOMIDINE 200 MCG IVPB 200 MCG/50 ML BOTTLE 11.226 MCG IV ×2 (00:10→04:46)
[2024-05-24] MEDS: INSULIN LISPRO (AdmeLOG) 1 UNIT/0.01 ML UNIT SC (00:40)
[2024-05-24 05:27] LABS: Basophils # (Auto) 0.1 Thou/mm3 (0.0-0.2); Basophils % (Auto) 1 % (0-2.5); Eosinophils # (Auto) 0.4 Thou/mm3 (0.0-0.5); Eosinophils % (Auto) 4 % (0-10); Hematocrit 37.1 % (41.0-53.0); Hemoglobin 12.9 g/dL (13.5-16.0); Immature Granulocytes % (Auto) 1 % (0-0); Immature Granulocytes Auto 0.09 Thou/mm3 (0.00-0.00); Lymphocytes # (Auto) 1.2 Thou/mm3 (1.0-4.8); Lymphocytes % (Auto) 12 % (10-50); Mean Corpuscular HGB Conc 34.8 g/dl (31.0-37.0); Mean Corpuscular Hemoglobin 31.7 pg (25.0-35.0); Mean Corpuscular Volume 91 fL (80-100); Monocytes # (Auto) 0.5 Thou/mm3 (0.0-0.8); Monocytes % (Auto) 4 % (0-12); Neutrophils # (Auto) 8.6 Thou/mm3 (1.8-7.7); Neutrophils % (Auto) 79 % (37-80); Nucleated Red Blood Cell % 0 /100 WBC (0); Platelet Count 145 Thou/mm3 (140-440); RDW Standard Deviation 45.4 fL (35.1-43.9); Red Blood Count 4.07 Miln/mm3 (4.50-5.90); White Blood Count 10.8 Thou/mm3 (3.8-10.6)
[2024-05-24] MEDS: metroNIDAZOLE/NS 500 MG IVPB 500 MG/100 ML BAG 200 MG IV ×3 (06:02→21:07)
[2024-05-24 06:34] LABS: Alanine Aminotransferase 14 U/L (10-49); Albumin, Serum 3.5 gm/dL (3.4-4.8); Albumin/Globulin Ratio 1.5 (1.2-2.2); Alkaline Phosphatase 56 U/L (46-116); Anion Gap 9 (7-16); Aspartate Amino Transferase 20 U/L (0-34); BUN/Creatinine Ratio 25 Ratio (12-20); Bilirubin,Total 0.6 mg/dL (0.3-1.2); Blood Urea Nitrogen 20 mg/dL (9-23); Calcium 8.5 mg/dL (8.3-10.6); Calcium (Corrected) 8.9 mg/dL (8.5-10.1); Carbon Dioxide 25.1 mMol/L (20.0-31.0); Chloride 103 mMol/L (98-107); Creatinine (Component) 0.8 mg/dL (0.6-1.3); Estimated Creatinine Clearance 58.7 mL/min (>60); Globulin 2.4 gm/dL (2.3-3.5); Glucose 136 mg/dL (74-106); Osmolality,Calculated 278 (275-295); Potassium 4.2 mMol/L (3.4-5.1); Sodium 137 mMol/L (136-145); Total Protein 5.9 gm/dL (5.7-8.2); eGFR > 60 See Note
[2024-05-24] MEDS: cefTRIAXone/D5w 2gm 2 GM/50 ML BAG IV (08:11)
[2024-05-24] MEDS: AZITHROMYCIN 250 MG TABLET 500 MG PO (08:12)
[2024-05-24] MEDS: PANTOPRAZOLE INJ 40 MG VIAL IVP (08:12)
[2024-05-24 10:27] LABS: Vancomycin,Trough 3.1 mcg/mL (5.0-10.0)
--- NOTE | 2024-05-24 10:29 | ESPR_ITS ---
<Statement entered by Veronica Newell MD - 05/24/24 13:27> TOTAL TIME: 45MINUTES ON DIRECT MEDICAL CARE, MANAGEMENT - COORDINATION AND COUNSELING > 50% OF TOTAL TIME I saw and evaluated the patient. I reviewed the resident?s note and agree with findings and plan as documented in the resident?s note. Sedation weaned, patient woke up and followed commands. Extubated without incident after passing SBT. Keep in ICU overnight. Family updated at bedside. Continue current antibiotics although cultures remain negative. Query aspiration. S-S eval required Documentation for date of: 05/24/24 Subjective Subjective Interval history: Samuel Archuleta is an 88-year-old male with a past medical history of hypertension, CAD s/p stent x 2, diabetes mellitus not on insulin, acoustic neuroma, and BPH that presented with AMS/encephalopathy. Per family, patient was at [facility] for hip injection but was refused. 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 Thus, patient was brought to the ED. Given altered mental status, stroke alert called and teleneurology consulted who favored reversible pathology of toxic/metabolic/infectious etiology and less likely to be ischemic or ictal. If testing for above causes unrevealing, consider obtaining MRI and EEG. While trying to obtain CT head, patient noted to become significantly agitated.he was given 1 mg of Ativan, however agitation worsened as he began biting and hitting staff members. Thus, decision was made to intubate patient for better medical management and further imaging. After intubation, patient went to [facility] with RVR with heart rate of 161. Given 20 mg Cardizem and started on Cardizem drip blood with BP 200/100 but noted to become hypotensive and so drip stopped. 05/23: Seen and examined at bedside in ICU. Patient originally sedated with Versed and fentanyl drips, and will transition to propofol and fentanyl. Initial blood gas showed normal pH, pCO2, and pO2. Ventilator currently set at VT 400, RR 18, PEEP 5, FiO2 40%. Plateau pressure 16 cm H2O. Given that patient is saturating close to 100%, will decrease FiO2 requirements and decrease sedation and see how patient does on pressure support. In early afternoon, patient noted to become agitated after weaned off of fentanyl so had to start on precedex drip. 05/24: Seen and examined at bedside in ICU. Was able to wean off fentanyl completely and was on Precedex drip at 0.6 mcg with a RASS of -1. Noted to be saturating 100% on 50% FiO2 and tolerated downtrending to 30%. Otherwise, ventilator settings of VT 400, RR 14, PEEP 5 with pressure support of 8. Weaned off Precedex around 9:30 AM and patient is calm and able to follow commands. NIF -21 on first attempts and -36 on second attempt. VT ~650 mL and RR of 7-8, with RSBI to be between 10.7 to 12.3. Given time, RR improved to 10 bpm and minute ventilation between 5-6 L/min and extubated at 12:36 PM and saturating 99% on 2 L NC. Exam Vital Signs Temp Pulse Resp BP Pulse Ox O2 Del Method O2 Flow Rate 96.9 F 64 18 131/71 H 95 Mechanical Ventilation 3 05/24/24 08:00 05/24/24 10:17 05/23/24 09:00 05/24/24 10:17 05/24/24 10:17 05/24/24 08:00 05/22/24 18:14 FiO2 30 05/24/24 08:00 Narrative Exam General: alert and off sedative drips, currently still intubated HEENT: NC/AT, mucous membranes moist, bilateral sclera anicteric Cardiovascular: regular rate and rhythm, S1/S2 present, no murmurs appreciated Pulmonary: clear to auscultation bilaterally, no rales/rhonchi/wheezes Abdominal: soft, non-tender, non-distended, no rebound/guarding, normal bowel sounds present Musculoskeletal: normal ROM, no peripheral edema Skin: warm and dry, intact, no rashes Objective Labs 05/24/24 04:53 05/24/24 04:53 Labs: Laboratory Results - last 24 hr 05/23/24 05/23/24 05/23/24 04:40 10:50 12:54 WBC RBC Hgb Hct MCV MCH MCHC RDW Std Deviation Plt Count Neut % (Auto) Lymph % (Auto) [place] % (Auto) Eos % (Auto) Baso % (Auto) Neut # (Auto) Lymph # (Auto) [place] # (Auto) Eos # (Auto) Baso # (Auto) Immature Gran # (Auto) Absolute Nucleated RBC Immature Gran % Nucleated RBC % Sodium Potassium Chloride Carbon Dioxide Anion Gap BUN Creatinine Estim Creat Clear Calc eGFR BUN/Creatinine Ratio Glucose Calculated Osmolality Lactic Acid 1.9 2.1 H Calcium Corrected Calcium Magnesium Total Bilirubin AST ALT Alkaline Phosphatase Total Protein Albumin Globulin Albumin/Globulin Ratio Vancomycin Trough Coccidioides IgM Ab Negative 05/23/24 05/24/24 05/24/24 16:35 04:53 08:50 WBC 10.8 H RBC 4.07 L Hgb 12.9 L Hct 37.1 L MCV 91 MCH 31.7 MCHC 34.8 RDW Std Deviation 45.4 H Plt Count 145 Neut % (Auto) 79 Lymph % (Auto) 12 [place] % (Auto) 4 Eos % (Auto) 4 Baso % (Auto) 1 Neut # (Auto) 8.6 H Lymph # (Auto) 1.2 [place] # (Auto) 0.5 Eos # (Auto) 0.4 Baso # (Auto) 0.1 Immature Gran # (Auto) 0.09 H Absolute Nucleated RBC 0.00 Immature Gran % 1 H Nucleated RBC % 0 Sodium 137 Potassium 4.2 D Chloride 103 Carbon Dioxide 25.1 Anion Gap 9 BUN 20 Creatinine 0.8 Estim Creat Clear Calc 58.7 L eGFR > 60 BUN/Creatinine Ratio 25 H Glucose 136 H D Calculated Osmolality 278 Lactic Acid 1.6 Calcium 8.5 Corrected Calcium 8.9 Magnesium 2.0 Total Bilirubin 0.6 AST 20 ALT 14 Alkaline Phosphatase 56 D Total Protein 5.9 Albumin 3.5 Globulin 2.4 Albumin/Globulin Ratio 1.5 Vancomycin Trough 3.1 L Coccidioides IgM Ab ABG Interpretation ABG results: 05/22/24 05/23/24 19:52 08:22 ABG pH 7.39 7.38 ABG pCO2 40 44 ABG pO2 141 H 93 D ABG HCO3 24 26 ABG O2 Saturation 100 H 98 ABG Base Excess -1 1 Quality Measures Quality Measures VTE prophylaxis and sepsis Current suspected stage: ruled out Possible source: pulmonary Blood cultures ordered: yes Antibiotic ordered: Yes Advance care planning discussed with:: patient and child Assessment & Plan Assessment Current Active Medications: Generic Name Dose Route Start Last Admin Trade Name Freq PRN Reason Stop Dose Admin Acetaminophen 650 mg 05/22/24 21:35 Acetaminophen 325 Mg Tablet PO 06/21/24 21:34 Q6H PRN Fever >101.5 Azithromycin 500 mg 05/23/24 10:35 05/24/24 08:12 Azithromycin 250 Mg Tablet PO 05/26/24 10:34 500 mg QDAY JAQUELIN Administration Dextrose 25 ml 05/22/24 21:35 Dextrose 50%-Water Inj 50 Ml Syringe IV 06/21/24 21:34 Q15MIN PRN BG 50-70 responsive npo pt Dextrose 50 ml 05/22/24 21:35 Dextrose 50%-Water Inj 50 Ml Syringe IV 06/21/24 21:34 Q15MIN PRN BG <50 OR BG <70 & pt unresponsive Glucagon 1 mg 05/22/24 21:35 Glucagon Inj 1 Mg Vial IM Q15MIN PRN BG <70, and no IV access Heparin Sodium (Porcine) 5,000 unit 05/24/24 10:30 Heparin Sod Inj 5000 Unit/Ml Vial 10 Ml SC 06/07/24 10:29 BID JAQUELIN Metronidazole 500 mg in 100 mls @ 200 mls/hr 05/22/24 21:40 05/24/24 06:02 Flagyl 500 Mg Iv IV 05/29/24 21:39 200 mls/hr Q8HR JAQUELIN Administration Norepinephrine/Dextrose 8 mg in 250 mls @ 7.017 mls/hr 05/22/24 22:04 05/23/24 17:15 Levophed In D5w 8mg/250ml IV 06/21/24 22:03 0 mcg/kg/min .Q24H PRN 0 mls/hr PER PROTOCOL Titration Protocol 0.05 MCG/KG/MIN Fentanyl Citrate 2,500 mcg in 250 mls @ 2.5 mls/hr 05/23/24 01:20 05/23/24 15:00 Sublimaze Inj 2,500 Mcg/250 Ml Bag IV 05/27/24 18:19 0 mcg/hr .Q24H PRN 0 mls/hr PER PROTOCOL Titration Protocol 25 MCG/HR Ceftriaxone Sodium/Dextrose 2 gm in 50 mls @ 100 mls/hr 05/23/24 14:00 05/24/24 08:11 Rocephin/D5w 2gm IV 05/30/24 13:59 100 mls/hr QDAY JAQUELIN Administration Dexmedetomidine/Sodium Chloride 200 mcg in 50 mls @ 3.742 mls/hr 05/23/24 13:25 05/24/24 09:45 Precedex Ivpb IV 06/22/24 13:24 0 mcg/kg/hr .[id number] PRN 0 mls/hr Per PROTOCOL Titration Protocol 0.2 MCG/KG/HR Insulin Human Lispro 0 unit 05/23/24 06:00 05/24/24 06:02 Insulin Lispro (Admelog) 1 Unit/0.01 Ml Unit SC 06/22/24 05:59 Not Given Q6HR JAQUELIN Protocol Ondansetron HCl 4 mg 05/22/24 17:25 Ondansetron Inj 2 Mg/Ml Inj 2 Ml IV 06/21/24 17:24 Q4HR PRN NAUSEA OR VOMITING Pantoprazole Sodium 40 mg 05/23/24 09:00 05/24/24 08:12 Pantoprazole Inj 40 Mg Vial IVP 06/22/24 08:59 40 mg QDAY JAQUELIN Administration Plan Samuel Archuleta is an 88-year-old male with a past medical history of hypertension, CAD s/p stent x 2, diabetes mellitus not on insulin, acoustic neuroma, and BPH who presented with acute encephalopathy and was sedated and intubated for combativeness and admitted to ICU for further management. Neurological #Acute encephalopathy, infectious vs metabolic CT C/A/P: bilateral pneumonia with possible aspiration. CT head: negative for any acute changes or mass effect. U-Tox negative. No hypercapnia on ABG and ammonia wnl. Vancomycin and cefepime (05/22-05/23) - Tele-neuro consulted, recommend working up reversible metabolic/toxic causes first prior to MRI/EEG - Flagyl (05/22-) - Ceftriaxone (05/23-) - Azithromycin 500 mg x3 days (05/23-) - Sputum culture: Gram stain showed occasional WBCs, no organisms - Blood cultures pending - Urine cultures pending - Cocci pending #Off sedation, previously on precedex and fentanyl #History of acoustic neuroma - Continue follow-up outpatient Cardiovascular #Shock, septic vs cardiogenic Tachycardia, leukocytosis, and lactic acid 4.9 + PNA -> sepsis A-fib with RVR after intubation - Cardiac echo pending - Will wean off pressors as able #A-fib with RVR, resolved Went into A-fib with RVR after intubation and given diltiazem push and started on diltiazem drip Now sinus rhythm with soft BPs -> hold diltiazem drip #CAD s/p stents #History of hypertension Currently in sinus rhythm after episode of a-fib RVR after being intubated. Echo on 05/23 showed EF 55-60%, grade 1 diastolic dysfunction. RVSP 60 mmHg. Mild MR, AI, , moderate TR. Pulmonary #Intubated and mechanically ventilated Intubated and mechanically ventilated for airway protection due to encephalopathy Gastrointestinal No acute/active disease Renal #Lactic acidosis, likely secondary to sepsis, resolved Resolved after being given IV fluids #Hypomagnesemia, resolved - Continue to monitor and replete Heme/onc #Normocytic anemia No current signs of active bleeding Unsure if patient's had colonoscopy done before, will ask once cognition improves regarding for any signs of melena or bleeding per rectum Endocrine #History of diabetes mellitus A1c 8.9% - SSI Infectious disease #Community-acquired pneumonia CT C/A/P: bilateral pneumonia Will cover for anaerobes, gram-negative's, and MRSA Pro-Lenard and CRP elevated WBC downtrending - See pulmonary above Hospital management: Disposition: intubated and mechanically ventilated in ICU Drips: off precedex and fentanyl Fluids: none Diet: tube feeding Lines: PIV DVT prophylaxis: heparin SC BID GI prophylaxis: pantoprazole IV [place]: DC'd 05/24 CODE STATUS: full code ----- Plan discussed with attending physician Dr. Reece Minor MD PGY-1 Internal Medicine
[2024-05-24] MEDS: HEPARIN SOD INJ 5000 UNIT/ML VIAL SC ×2 (11:22→21:07)
--- NOTE | 2024-05-24 16:53 | PC.SS ---
Update: Patient extubated today. Swallow evaluation pending. Possible downgrade tomorrow.
[2024-05-25] VITALS (39 sets, daily range): BP systolic 134–190; BP diastolic 64–162; PULSE 76–128; RESP 13–34; TEMP 37.3–37.8; O2SAT 89–99
[2024-05-25] MEDS: ACETAMINOPHEN 325 MG TABLET 650 MG PO (00:25)
[2024-05-25 06:09] LABS: Basophils % (Auto) 0 % (0-2.5); Eosinophils # (Auto) 0.3 Thou/mm3 (0.0-0.5); Eosinophils % (Auto) 3 % (0-10); Hematocrit 34.6 % (41.0-53.0); Immature Granulocytes % (Auto) 0 % (0-0); Immature Granulocytes Auto 0.04 Thou/mm3 (0.00-0.00); Lymphocytes # (Auto) 1.3 Thou/mm3 (1.0-4.8); Lymphocytes % (Auto) 13 % (10-50); Mean Corpuscular HGB Conc 34.7 g/dl (31.0-37.0); Mean Corpuscular Hemoglobin 31.5 pg (25.0-35.0); Mean Corpuscular Volume 91 fL (80-100); Monocytes # (Auto) 0.5 Thou/mm3 (0.0-0.8); Monocytes % (Auto) 5 % (0-12); Neutrophils # (Auto) 7.5 Thou/mm3 (1.8-7.7); Neutrophils % (Auto) 78 % (37-80); Nucleated Red Blood Cell % 0 /100 WBC (0); Platelet Count 164 Thou/mm3 (140-440); RDW Standard Deviation 44.4 fL (35.1-43.9); Red Blood Count 3.81 Miln/mm3 (4.50-5.90); White Blood Count 9.7 Thou/mm3 (3.8-10.6)
[2024-05-25 06:45] LABS: Alanine Aminotransferase 13 U/L (10-49); Albumin, Serum 3.2 gm/dL (3.4-4.8); Albumin/Globulin Ratio 1.4 (1.2-2.2); Alkaline Phosphatase 63 U/L (46-116); Anion Gap 11 (7-16); Aspartate Amino Transferase 23 U/L (0-34); BUN/Creatinine Ratio 20 Ratio (12-20); Bilirubin,Total 0.6 mg/dL (0.3-1.2); Blood Urea Nitrogen 16 mg/dL (9-23); Calcium 8.5 mg/dL (8.3-10.6); Calcium (Corrected) 9.1 mg/dL (8.5-10.1); Carbon Dioxide 24.3 mMol/L (20.0-31.0); Chloride 102 mMol/L (98-107); Creatinine (Component) 0.8 mg/dL (0.6-1.3); Estimated Creatinine Clearance 58.7 mL/min (>60); Globulin 2.3 gm/dL (2.3-3.5); Glucose 138 mg/dL (74-106); Magnesium 1.7 mg/dL (1.6-2.6); Osmolality,Calculated 277 (275-295); Potassium 4.1 mMol/L (3.4-5.1); Sodium 137 mMol/L (136-145); Total Protein 5.5 gm/dL (5.7-8.2); eGFR > 60 See Note
[2024-05-25] MEDS: PANTOPRAZOLE INJ 40 MG VIAL IVP (09:17)
[2024-05-25] MEDS: METOPROLOL SUCCINATE XL 25 MG TABCR 50 MG PO ×2 (09:18→14:27)
[2024-05-25] MEDS: amLODIPine BESYLATE 5 MG TABLET PO (09:19)
[2024-05-25] MEDS: AZITHROMYCIN 250 MG TABLET 500 MG PO (09:19)
[2024-05-25] MEDS: ATORVASTATIN CALCIUM 10 MG TABLET PO (09:19)
[2024-05-25] MEDS: DUTASTERIDE 0.5 MG CAPSULE (NON-FORMULARY) PO (09:20)
[2024-05-25] MEDS: Magnesium Sulfate 4 GM Ivpb 4 GM/50 ML BAG IV (09:20)
[2024-05-25] MEDS: HEPARIN SOD INJ 5000 UNIT/ML VIAL SC ×2 (09:21→20:48)
[2024-05-25] MEDS: OLMESARTAN MEDOXOMIL 40 MG TABLET PO (09:33)
[2024-05-25] MEDS: cefTRIAXone/D5w 2gm 2 GM/50 ML BAG IV (09:37)
--- NOTE | 2024-05-25 09:44 | PCS.ST ---
Swallow Evaluation completed. See report for details. Recommend diet advanced to Dysphagia 3/Regular liquids.
[2024-05-25] MEDS: INSULIN LISPRO (AdmeLOG) 1 UNIT/0.01 ML UNIT SC ×2 (12:06→20:49)
[2024-05-25 13:10] LABS: Cocci Serology, IgG Negative (Negative)
--- NOTE | 2024-05-25 13:47 | PD.RESPRO ---
Documentation for date of: 05/25/24 Subjective Subjective Interval history: Samuel Archuleta is an 88-year-old male with a past medical history of hypertension, CAD s/p stent x 2, diabetes mellitus not on insulin, acoustic neuroma, and BPH that presented with AMS/encephalopathy. Per family, patient was at [facility] for hip injection but was refused. 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 Thus, patient was brought to the ED. Given altered mental status, stroke alert called and teleneurology consulted who favored reversible pathology of toxic/metabolic/infectious etiology and less likely to be ischemic or ictal. If testing for above causes unrevealing, consider obtaining MRI and EEG. While trying to obtain CT head, patient noted to become significantly agitated.he was given 1 mg of Ativan, however agitation worsened as he began biting and hitting staff members. Thus, decision was made to intubate patient for better medical management and further imaging. After intubation, patient went to [facility] with RVR with heart rate of 161. Given 20 mg Cardizem and started on Cardizem drip blood with BP 200/100 but noted to become hypotensive and so drip stopped. 05/23: Seen and examined at bedside in ICU. Patient originally sedated with Versed and fentanyl drips, and will transition to propofol and fentanyl. Initial blood gas showed normal pH, pCO2, and pO2. Ventilator currently set at VT 400, RR 18, PEEP 5, FiO2 40%. Plateau pressure 16 cm H2O. Given that patient is saturating close to 100%, will decrease FiO2 requirements and decrease sedation and see how patient does on pressure support. In early afternoon, patient noted to become agitated after weaned off of fentanyl so had to start on precedex drip. 05/24: Seen and examined at bedside in ICU. Was able to wean off fentanyl completely and was on Precedex drip at 0.6 mcg with a RASS of -1. Noted to be saturating 100% on 50% FiO2 and tolerated downtrending to 30%. Otherwise, ventilator settings of VT 400, RR 14, PEEP 5 with pressure support of 8. Weaned off Precedex around 9:30 AM and patient is calm and able to follow commands. NIF -21 on first attempts and -36 on second attempt. VT ~650 mL and RR of 7-8, with RSBI to be between 10.7 to 12.3. Given time, RR improved to 10 bpm and minute ventilation between 5-6 L/min and extubated at 12:36 PM and saturating 99% on 2 L NC. 05/25: Patient seen and examined at bedside. Patient is A&O x 3 to name, place, and date, however occasionally gets confused and needs to be frequently oriented. Patient's memory improves when his hearing aid is seured and working well in his right ear. Patient is not sure what happened prior to this hospital admission, however denies any complaints at this time. Overnight, patient had a Tmax of 100.1F and was tachycardic, most likely in the setting of ongoing infection. Recommend to continue with IV Abx for 5 more days. Exam Vital Signs Temp Pulse Resp BP Pulse Ox O2 Del Method O2 Flow Rate 99.8 F 113 H 20 183/76 H 93 L Room Air 3 05/25/24 11:47 05/25/24 11:47 05/25/24 11:47 05/25/24 10:00 05/25/24 11:47 05/25/24 11:47 05/25/24 07:02 FiO2 30 05/24/24 12:00 Narrative Exam General: Elderly male, well nourished, well hydrated in NAD laying comfortably in bed HEENT: NC/AT, mucous membranes moist, bilateral sclera anicteric Cardiovascular: Tachycardic but regular rhythm, S1/S2 present, no murmurs appreciated Pulmonary: CTAB, no crackles or wheezing noted Abdominal: soft, non-tender, non-distended, no rebound/guarding, normal bowel sounds present Neuro: A&Ox 3 to name, place, and date. CN grossly normal. Motor and sensory grossly normal. Musculoskeletal: normal ROM, no peripheral edema Skin: warm and dry, intact, no rashes Objective Labs 05/28/24 04:55 05/28/24 04:55 Labs: Laboratory Results - last 24 hr 05/23/24 05/25/24 04:40 05:03 WBC 9.7 RBC 3.81 L Hgb 12.0 L Hct 34.6 L MCV 91 MCH 31.5 MCHC 34.7 RDW Std Deviation 44.4 H Plt Count 164 Neut % (Auto) 78 Lymph % (Auto) 13 [place] % (Auto) 5 Eos % (Auto) 3 Baso % (Auto) 0 Neut # (Auto) 7.5 Lymph # (Auto) 1.3 [place] # (Auto) 0.5 Eos # (Auto) 0.3 Baso # (Auto) 0.0 Immature Gran # (Auto) 0.04 H Absolute Nucleated RBC 0.00 Immature Gran % 0 Nucleated RBC % 0 Sodium 137 Potassium 4.1 Chloride 102 Carbon Dioxide 24.3 Anion Gap 11 BUN 16 Creatinine 0.8 Estim Creat Clear Calc 58.7 L eGFR > 60 BUN/Creatinine Ratio 20 Glucose 138 H Calculated Osmolality 277 Calcium 8.5 Corrected Calcium 9.1 Magnesium 1.7 Total Bilirubin 0.6 AST 23 ALT 13 Alkaline Phosphatase 63 Total Protein 5.5 L Albumin 3.2 L Globulin 2.3 Albumin/Globulin Ratio 1.4 Coccidioides IgG Ab Negative ABG Interpretation ABG results: 05/22/24 05/23/24 19:52 08:22 ABG pH 7.39 7.38 ABG pCO2 40 44 ABG pO2 141 H 93 D ABG HCO3 24 26 ABG O2 Saturation 100 H 98 ABG Base Excess -1 1 Quality Measures Quality Measures VTE prophylaxis and sepsis Current suspected stage: sepsis Possible source: pulmonary Blood cultures ordered: yes Antibiotic ordered: Yes Advance care planning discussed with:: patient Assessment & Plan Assessment Current Active Medications: Generic Name Dose Route Start Last Admin Trade Name Freq PRN Reason Stop Dose Admin Acetaminophen 650 mg 05/25/24 00:19 05/25/24 00:25 Acetaminophen 325 Mg Tablet PO 06/21/24 21:34 650 mg Q6H PRN Administration Fever >101.5, or pain 1-4 Amlodipine Besylate 5 mg 05/24/24 15:00 05/25/24 09:19 Amlodipine Besylate 5 Mg Tablet PO 06/23/24 14:59 5 mg QDAY JAQUELIN Administration Atorvastatin Calcium 10 mg 05/24/24 15:00 05/25/24 09:19 Atorvastatin Calcium 10 Mg Tablet PO 06/23/24 14:59 10 mg QDAY JAQUELIN Administration Olmesartan Medoxomil 0 ea 05/25/24 09:00 05/25/24 09:33 40 Mg Tablet PO 06/24/24 08:59 1 tablet DAILY JAQUELIN Administration Dextrose 25 ml 05/22/24 21:35 Dextrose 50%-Water Inj 50 Ml Syringe IV 06/21/24 21:34 Q15MIN PRN BG 50-70 responsive npo pt Dextrose 50 ml 05/22/24 21:35 Dextrose 50%-Water Inj 50 Ml Syringe IV 06/21/24 21:34 Q15MIN PRN BG <50 OR BG <70 & pt unresponsive Dutasteride 0.5 mg 05/24/24 15:00 05/25/24 09:20 Dutasteride 0.5 Mg Capsule (Non-Formulary) PO 06/23/24 14:59 0.5 mg QDAY JAQUELIN Administration Glucagon 1 mg 05/22/24 21:35 Glucagon Inj 1 Mg Vial IM Q15MIN PRN BG <70, and no IV access Heparin Sodium (Porcine) 5,000 unit 05/24/24 10:30 05/25/24 09:21 Heparin Sod Inj 5000 Unit/Ml Vial SC 06/07/24 10:29 5,000 unit BID JAQUELIN Administration Ceftriaxone Sodium/Dextrose 2 gm in 50 mls @ 100 mls/hr 05/23/24 14:00 05/25/24 09:37 Rocephin/D5w 2gm IV 05/30/24 13:59 100 mls/hr QDAY JAQUELIN Administration Dexmedetomidine/Sodium Chloride 200 mcg in 50 mls @ 3.742 mls/hr 05/23/24 13:25 05/24/24 09:45 Precedex Ivpb IV 06/22/24 13:24 0 mcg/kg/hr .[id number] PRN 0 mls/hr Per PROTOCOL Titration Protocol 0.2 MCG/KG/HR Insulin Human Lispro 0 unit 05/24/24 21:00 05/25/24 12:06 Insulin Lispro (Admelog) 1 Unit/0.01 Ml Unit SC 06/23/24 20:59 1 unit ACHS JAQUELIN Administration Protocol Metoprolol Succinate 50 mg 05/24/24 15:00 05/25/24 09:18 Metoprolol Succinate Xl 25 Mg Tabcr PO 06/23/24 14:59 50 mg QDAY JAQUELIN Administration Ondansetron HCl 4 mg 05/22/24 17:25 Ondansetron Inj 2 Mg/Ml Inj 2 Ml IV 06/21/24 17:24 Q4HR PRN NAUSEA OR VOMITING Pantoprazole Sodium 40 mg 05/23/24 09:00 05/25/24 09:17 Pantoprazole Inj 40 Mg Vial IVP 06/22/24 08:59 40 mg QDAY JAQUELIN Administration Plan Samuel Archuleta is an 88-year-old male with a past medical history of hypertension, CAD s/p stent x 2, diabetes mellitus not on insulin, acoustic neuroma, and BPH who presented with acute encephalopathy and was sedated and intubated for combativeness and admitted to ICU for further management. Neurological #Acute encephalopathy, infectious vs metabolic-resolving CT C/A/P: bilateral pneumonia with possible aspiration. CT head: negative for any acute changes or mass effect. U-Tox negative. No hypercapnia on ABG and ammonia wnl. Vancomycin and cefepime (05/22-05/23) Blood/Urine culture negative; Cocci IgM negative; Sputum culture: Gram stain showed occasional WBCs, no organisms - Tele-neuro consulted, recommend working up reversible metabolic/toxic causes first prior to MRI/EEG - Pending Cocci IgG - Flagyl (05/22-05/25) - Azithromyin (05/23-05/25) - Ceftriaxone (05/23-) #Off sedation, previously on precedex and fentanyl #History of acoustic neuroma - Continue follow-up outpatient Cardiovascular #Distributive Shock in the setting of sepsis Tachycardia, leukocytosis, and lactic acid 4.9 + PNA -> sepsis -Levophed discontinued -Continue to treat source of sepsis (PNA) with above Abx #A-fib with RVR, resolved Went into A-fib with RVR after intubation and given diltiazem push and started on diltiazem drip Now sinus rhythm, but tachycardic -Consider repeat 12 lead EKG -Continue to monitor on med/tele #CAD s/p stents #History of hypertension Currently in sinus rhythm after episode of a-fib RVR after being intubated. Echo on 05/23 showed EF 55-60%, grade 1 diastolic dysfunction. RVSP 60 mmHg. Mild MR, AI, , moderate TR. -Restarted patient's home medications Pulmonary #Community Acquired PNA CT C/A/P: bilateral pneumonia Pro-Lenard and CRP elevated WBC downtrending - Continue with IV Abx - DC'ed Flagyl and Azithromycin Gastrointestinal No acute/active disease Renal #Lactic acidosis, likely secondary to sepsis, resolved Resolved after being given IV fluids #Hypomagnesemia, resolved - Continue to monitor and replete Heme/onc #Normocytic anemia No current signs of active bleeding Unsure if patient's had colonoscopy done before, will ask once cognition improves regarding for any signs of melena or bleeding per rectum Endocrine #History of diabetes mellitus A1c 8.9% - SSI Infectious disease #Community-acquired pneumonia CT C/A/P: bilateral pneumonia Will cover for anaerobes, gram-negative's, and MRSA Pro-Lenard and CRP elevated WBC downtrending - See pulmonary above Hospital management: Disposition: Patient extubated on 05/24, and has been off Levophed since 05/23. Patient is following commands, and able to tolerate a diet after passing formal speech eval. Patient safe to be downgraded to Med/Tele. Diet: Cardiac, Carb Consistent Lines: PIV DVT prophylaxis: heparin SC BID GI prophylaxis: pantoprazole IV CODE STATUS: full code Patient's care and plan discussed with my attending, Dr. Nolasco. Shannon Ferro, PGY-2 Attending Provider Attestation/Addendum Patient seen and examined with above resident, Shannon Ferro MD. I agree with the findings, assessment, and plan of care as documented except for any differences below. Patient successfully weaned from mechanical ventilation yesterday. Mentation continues to improve but he does not recollect events prior to hospital admission. Patient does live with a roommate will we will contact to further obtain history to help determine etiology of his development of acute encephalopathy which is now resolved and returned to baseline. Patient has multiple friends at bedside who report that the patient has been struggling to care for himself completely. This will need to be considered for safe discharge including PT/OT evaluation. Patient will be treated for community-acquired pneumonia with plan completion of course of antibiotics. For now we will just be on ceftriaxone as cultures have not isolated as specific organism. I still suspect that aspiration would likely happen after development of altered mentation and loss of consciousness more so than as the precipitant of fall that has followed. Nonetheless, patient is stable for transfer to [facility] for ongoing management prior to discharge. Total critical care time: I personally spent 35 minutes for review of physiologic parameters, directing plan of care throughout the day, coordination of care with other specialists including transfer to [facility], and counseling patient/friends at bedside. This is exclusive of time spent teaching housestaff or performing any separate billable procedures.
--- NOTE | 2024-05-25 14:18 | PD.RESPRO ---
Documentation for date of: 05/25/24 Subjective Subjective Interval history: [facility] Extubated yesterday. Pending further cardiac workup, as well as management of pneumonia. Exam Vital Signs Temp Pulse Resp BP Pulse Ox O2 Del Method O2 Flow Rate 99.8 F 113 H 20 183/76 H 93 L Room Air 3 05/25/24 11:47 05/25/24 11:47 05/25/24 11:47 05/25/24 10:00 05/25/24 11:47 05/25/24 11:47 05/25/24 07:02 FiO2 30 05/24/24 12:00 Narrative Exam Constitutional: Well nourished and in no acute distress Head: Normocephalic Eyes: no conjunctival injection , symmetrical lids. ENMT: Moist Mucous Membranes CVS: Tachycardic at 120, regular rate?, S1 and S2 present, no murmurs, rubs or gallops . RESP: CTAB, no increased work of breathing, no rales, rhonchi or wheezing, on room air GI: Soft, nondistended, nontender MSK: No lower extremity edema Skin: Warm to touch, Dry. Neuro: Cranial nerves II through XII intact, 5 out of 5 strength and sensation throughout. Normal finger-nose. Patient is alert and oriented to person, date but not event. Psych: Appropriate mood and affect. Objective Labs 05/25/24 05:03 05/25/24 05:03 Labs: Laboratory Results - last 24 hr 05/23/24 05/25/24 04:40 05:03 WBC 9.7 RBC 3.81 L Hgb 12.0 L Hct 34.6 L MCV 91 MCH 31.5 MCHC 34.7 RDW Std Deviation 44.4 H Plt Count 164 Neut % (Auto) 78 Lymph % (Auto) 13 [place] % (Auto) 5 Eos % (Auto) 3 Baso % (Auto) 0 Neut # (Auto) 7.5 Lymph # (Auto) 1.3 [place] # (Auto) 0.5 Eos # (Auto) 0.3 Baso # (Auto) 0.0 Immature Gran # (Auto) 0.04 H Absolute Nucleated RBC 0.00 Immature Gran % 0 Nucleated RBC % 0 Sodium 137 Potassium 4.1 Chloride 102 Carbon Dioxide 24.3 Anion Gap 11 BUN 16 Creatinine 0.8 Estim Creat Clear Calc 58.7 L eGFR > 60 BUN/Creatinine Ratio 20 Glucose 138 H Calculated Osmolality 277 Calcium 8.5 Corrected Calcium 9.1 Magnesium 1.7 Total Bilirubin 0.6 AST 23 ALT 13 Alkaline Phosphatase 63 Total Protein 5.5 L Albumin 3.2 L Globulin 2.3 Albumin/Globulin Ratio 1.4 Coccidioides IgG Ab Negative ABG Interpretation ABG results: 05/22/24 05/23/24 19:52 08:22 ABG pH 7.39 7.38 ABG pCO2 40 44 ABG pO2 141 H 93 D ABG HCO3 24 26 ABG O2 Saturation 100 H 98 ABG Base Excess -1 1 Quality Measures Quality Measures VTE prophylaxis and sepsis Current suspected stage: sepsis Possible source: pulmonary Blood cultures ordered: yes Antibiotic ordered: Yes Advance care planning discussed with:: patient Assessment & Plan Assessment Current Active Medications: Generic Name Dose Route Start Last Admin Trade Name Freq PRN Reason Stop Dose Admin Acetaminophen 650 mg 05/25/24 00:19 05/25/24 00:25 Acetaminophen 325 Mg Tablet PO 06/21/24 21:34 650 mg Q6H PRN Administration Fever >101.5, or pain 1-4 Amlodipine Besylate 5 mg 05/24/24 15:00 05/25/24 09:19 Amlodipine Besylate 5 Mg Tablet PO 06/23/24 14:59 5 mg QDAY JAQUELIN Administration Atorvastatin Calcium 10 mg 05/24/24 15:00 05/25/24 09:19 Atorvastatin Calcium 10 Mg Tablet PO 06/23/24 14:59 10 mg QDAY JAQUELIN Administration Olmesartan Medoxomil 0 ea 05/25/24 09:00 05/25/24 09:33 40 Mg Tablet PO 06/24/24 08:59 1 tablet DAILY JAQUELIN Administration Dextrose 25 ml 05/22/24 21:35 Dextrose 50%-Water Inj 50 Ml Syringe IV 06/21/24 21:34 Q15MIN PRN BG 50-70 responsive npo pt Dextrose 50 ml 05/22/24 21:35 Dextrose 50%-Water Inj 50 Ml Syringe IV 06/21/24 21:34 Q15MIN PRN BG <50 OR BG <70 & pt unresponsive Dutasteride 0.5 mg 05/24/24 15:00 05/25/24 09:20 Dutasteride 0.5 Mg Capsule (Non-Formulary) PO 06/23/24 14:59 0.5 mg QDAY JAQUELIN Administration Glucagon 1 mg 05/22/24 21:35 Glucagon Inj 1 Mg Vial IM Q15MIN PRN BG <70, and no IV access Heparin Sodium (Porcine) 5,000 unit 05/24/24 10:30 05/25/24 09:21 Heparin Sod Inj 5000 Unit/Ml Vial SC 06/07/24 10:29 5,000 unit BID JAQUELIN Administration Ceftriaxone Sodium/Dextrose 2 gm in 50 mls @ 100 mls/hr 05/23/24 14:00 05/25/24 09:37 Rocephin/D5w 2gm IV 05/30/24 13:59 100 mls/hr QDAY JAQUELIN Administration Dexmedetomidine/Sodium Chloride 200 mcg in 50 mls @ 3.742 mls/hr 05/23/24 13:25 05/24/24 09:45 Precedex Ivpb IV 06/22/24 13:24 0 mcg/kg/hr .[id number] PRN 0 mls/hr Per PROTOCOL Titration Protocol 0.2 MCG/KG/HR Insulin Human Lispro 0 unit 05/24/24 21:00 05/25/24 12:06 Insulin Lispro (Admelog) 1 Unit/0.01 Ml Unit SC 06/23/24 20:59 1 unit ACHS JAQUELIN Administration Protocol Metoprolol Succinate 50 mg 05/24/24 15:00 05/25/24 09:18 Metoprolol Succinate Xl 25 Mg Tabcr PO 06/23/24 14:59 50 mg QDAY JAQUELIN Administration Ondansetron HCl 4 mg 05/22/24 17:25 Ondansetron Inj 2 Mg/Ml Inj 2 Ml IV 06/21/24 17:24 Q4HR PRN NAUSEA OR VOMITING Pantoprazole Sodium 40 mg 05/23/24 09:00 05/25/24 09:17 Pantoprazole Inj 40 Mg Vial IVP 06/22/24 08:59 40 mg QDAY JAQUELIN Administration Plan Samuel Archuleta is an 88-year-old male with a past medical history of hypertension, CAD s/p stent x 2, diabetes mellitus not on insulin, acoustic neuroma, and BPH who presented to the ED with acute encephalopathy and was sedated and intubated for combativeness and admitted to ICU for further management on 05/22. Extubated on 05/24. 05/25 patient was downgraded to internal medicine team for further cardiac and pneumonia management. #Possible A-fib with RVR vs SVT #CAD s/p stents #History of hypertension #Shock, septic?resolved Went into A-fib with RVR after intubation and given diltiazem push and started on diltiazem drip Currently in sinus tachycardia or A-fib with RVR with a rate of 120. Difficult to tell due to elevated heart rate. Echo on 05/23 showed EF 55-60%, grade 1 diastolic dysfunction. RVSP 60 mmHg. Mild MR, AI, , moderate TR. -Cardiology consulted -Metoprolol XL 100 mg daily -Pending cardio recs to determine whether or not patient should be anticoagulated #Community-acquired pneumonia?improving #Acute encephalopathy, likely secondary to pneumonia?improving CT C/A/P: bilateral pneumonia with possible aspiration. CT head: negative for any acute changes or mass effect. U-Tox negative. Ammonia wnl. Pro-Lenard 5.61 and CRP 6, elevated. Leukocytosis resolved Patient resting comfortably on room air. Lungs Clear throughout. Alert and oriented to person and date but not event. Sputum positive for haemophilus influenza. Negative MRSA. Negative UA. Blood cultures negative at 48 hours. Negative cocci studies. s/p Vancomycin and cefepime (05/22-05/23), Azithromycin 500 mg x3 days (05/23-05/25) -Flagyl (05/22-05/25) -Ceftriaxone (05/23-present) -Urine Legionella pending #Hypertension -Home meds: Olmesartan 40 mg daily and amlodipine 5 mg ?Resume amlodipine 5 mg, started losartan 25 mg daily ?BP has been elevated, will continue to monitor #History of acoustic neuroma - Continue follow-up outpatient #History of diabetes mellitus A1c 8.9% - SSI -Cardiac and diabetic diet #Lactic acidosis, likely secondary to sepsis, resolved #Hypomagnesemia, resolved #Normocytic anemia Hospital management: DVT prophylaxis: heparin SC BID GI prophylaxis: Not applicable CODE STATUS: full code Patient was evaluated and seen with my attending Dr. Lentz, Emigdio Grewal, PGY1 Attending Provider Attestation/Addendum I reviewed labs, imaging, EKG, home medications and prior available records. Face to face evaluation was performed by me. I have personally examined the patient and discussed assessment and plan with the IM team. I reviewed the resident note and agree with the plan with exceptions as below. Acute encephalopathy Acute hypoxic respiratory failure Septic shock Bilateral pneumonia secondary to haemophilus influenza Tachyarrhythmia: Possible A-fib with RVR versus SVT Hypertensive emergency Patient is extubated He is off pressors. He was downgraded from ICU He is still confused: Possible hypoactive delirium in the setting of acute illness and recent intubation Heart rate remains uncontrolled: Increased metoprolol to 100 mg BP is 182/83: Start losartan in addition to metoprolol Continue ceftriaxone/azithromycin. Ordered Legionella test given the altered mental status
--- NOTE | 2024-05-25 14:46 | PC.SS ---
SS update: Patient to be downgraded from ICU to [facility] today. Extubated yesterday. Pending further cardiac and stroke workup, as well as management of pneumonia.
[2024-05-25] MEDS: LOSARTAN POTASSIUM 25 MG TABLET PO (18:08)
--- NOTE | 2024-05-25 18:15 | PC.NURSE ---
Was told by Point of contact Devorah to call Demario when patient was moved. Demario, the son, called but Devorah the point of contact answered. Informed her of patient being moved to room 356.
--- NOTE | 2024-05-25 20:47 | ESCONSULT_ITS ---
RE: DONALD MAYERS : 1935 DATE OF CONSULTATION: 05/25/2024 CONSULTING PHYSICIAN: Hospitalist. REASON FOR CONSULTATION: Evaluation of episode of atrial fibrillation on admission, now back in sinus rhythm. CHIEF COMPLAINT: Altered mental status and atrial fibrillation. HISTORY OF PRESENT ILLNESS: The patient is an 88-year-old male, very well known to me for more than 25 years, has a longstanding history of coronary artery disease, multiple stent placements various times, most recently more than 3 years ago, hypertension, hypercholesterolemia, type 2 diabetes mellitus, prostate hypertrophy, peripheral neuropathy, and history of acoustic neuroma. He was doing fairly well until recently. The patient apparently was brought by ambulance with altered mental status on 05/22, came to the emergency department with a chief complaint of altered mental status. The patient now states he remembers possibly fainting or passed out and on admission, he was having findings consistent with sepsis, acute hypoxic respiratory failure. The patient was intubated and placed in mechanical ventilation, but during that process, after intubation the patient developed atrial fibrillation with rapid ventricular response. Heart rate was 160. Given 20 mg of diltiazem, diltiazem drip was started. The patient became somewhat hypotensive. Subsequently, drip was stopped. He converted to sinus rhythm on his own, subsequently did not have to be cardioverted. On 05/24, the patient was successfully extubated, saturating well and today, the patient was transferred to Med/Surg floor for management. The patient has been treated for hypoxic respiratory failure and pneumonia, receiving IV antibiotics, improving. Initial white count was slightly elevated at 11.5, but is now down to 9.7. Hemoglobin remains stable. Chemistry panel did not have any evidence of myocardial infarction. Troponin levels have been negative 0.02. EKG when he has atrial fibrillation did show AFib RVR, nonspecific ST depression, but there was no ST elevation. A cardiac echo was also performed on 05/23 showed preserved ejection fraction of 55% to 60% and mild RV systolic pressure elevation, but he was in acute respiratory failure at that time, calcification of mitral valve, mild mitral regurgitation, and mild calcification of the aortic valve and mild aortic regurgitation. When I examined him today, the patient is complaining of no chest pain, shortness of breath, in fact he is feeling better, wants to go home, appears to be quite lucid. ALLERGIES: NONE. MEDICATIONS: Home medications include, 1. Amlodipine 5 mg daily. 2. Atorvastatin 10 mg daily. 3. Finasteride 5 mg daily. 4. Avodart 0.5 daily. 5. Metformin 500 mg twice daily. 6. Metoprolol succinate 50 mg daily. 7. Olmesartan 40 mg daily. PAST MEDICAL HISTORY: CAD, status post multiple stent placement, hypertension, acoustic neuroma, diabetes mellitus type 2. SOCIAL HISTORY: The patient is , lives alone, does not smoke, drink alcoholic beverages. FAMILY HISTORY: Noncontributory. REVIEW OF SYSTEMS: Cardiovascular: No chest pain or shortness of breath. He does not recall having any A-fib in the past, but the patient did have some questionable syncope due to mostly altered mental status. Review of system otherwise unremarkable. PHYSICAL EXAMINATION: GENERAL: Well-nourished male elderly, in no acute distress. VITAL SIGNS: The patient's sinus rhythm is 90 beats per minute. His blood pressure is elevated at 180/102 at 6 o'clock, but consistently elevated throughout the day 180 systolic. His heart rate is , respirations 18, temperature is normal. HEENT: Head is atraumatic and normocephalic. Eyes: Normal. NECK: Supple. No JVD. Carotid pulse felt but no bruits. CHEST: Symmetrical. LUNGS: Decreased breath sounds at the basis. HEART: S1, S2, regular. No gallops. ABDOMEN: Abdomen is thin and soft. EXTREMITIES: No edema. /RECTAL: Not performed. [employer]GER: Normal. DIAGNOSTIC DATA: Electrocardiogram shows evidence of atrial fibrillation, rapid ventricular response. No further EKGs are found. IMPRESSION/ASSESSMENT: 1. One episode of paroxysmal atrial fibrillation with hypoxic respiratory failure during intubation, possibly one-time episode due to acute illness. 2. Lactic acidosis and sepsis on admission with altered mental status, improved. 3. Hypoxic respiratory failure, improved. 4. Diabetes mellitus. 5. Hypertension, not controlled. 6. Coronary artery disease, status post multiple stent placement. 7. History of acoustic neuroma. 8. Hypercholesterolemia. RECOMMENDATIONS: The patient should be started back on his blood pressure medication. He has severe hypertension, uncontrolled. Since olmesartan is not available, recommend giving losartan at a higher dose at least 100 mg daily. When he goes home, he should resume olmesartan. Continue metoprolol succinate, probably increase the doses to 50 mg twice daily and continue amlodipine 5 mg daily. As far as atrial fibrillation is concerned, I am treating as one-time episode, hence probably would not anticoagulate the patient at this time. No need for Eliquis as it is due to acute illness and intubation. Following discharge, I will do a 7-day monitor and a 30-day monitor for assessment of atrial fibrillation. If he has episodes of A-fib, might consider anticoagulation, but this appears to be one time episode due to acute illness. The patient did not have any acute coronary syndrome. Troponin levels have been negative. He did not have any symptoms of angina and hence would not pursue that workup at this time. Once the patient's blood pressure is controlled well, infection is controlled, he can be discharged. I will see him for followup as scheduled in my office in the next two to three weeks. I would like to thank for this patient's cardiovascular elevation. We will be glad to follow the patient tomorrow again and monitor the patient as long as he is in the hospital until discharge. DT: 19:35:42 TT: 20:25:00 Ref: [id number] - TID: [id number]
[2024-05-25] MEDS: LOSARTAN POTASSIUM 25 MG TABLET 50 MG PO (21:17)
--- NOTE | 2024-05-25 21:26 | PC.NURSE ---
provider notified of BP 182/94 HR 76 no patient complaints or symptoms. states she will look at the chart and place orders.
[2024-05-25] MEDS: MELATONIN 3 MG TABLET 6 MG PO (23:37)
--- NOTE | 2024-05-25 23:48 | PC.NURSE ---
dr ramos notified of pt BP 182/98 HR 98 and pt complaining of anxiety. Dr ramos states he will look at the chart and place orders.
[2024-05-25] MEDS: DiphenhydrAMINE ELIX 25 MG/10 ML UDC 50 MG PO (23:58)
[2024-05-26] VITALS (14 sets, daily range): BP systolic 139–187; BP diastolic 78–104; PULSE 75–111; RESP 16–24; TEMP 36.3–36.6; O2SAT 96–98
[2024-05-26 06:58] LABS: Basophils # (Auto) 0.1 Thou/mm3 (0.0-0.2); Basophils % (Auto) 1 % (0-2.5); Eosinophils # (Auto) 0.2 Thou/mm3 (0.0-0.5); Eosinophils % (Auto) 2 % (0-10); Hematocrit 39.9 % (41.0-53.0); Immature Granulocytes % (Auto) 1 % (0-0); Immature Granulocytes Auto 0.09 Thou/mm3 (0.00-0.00); Lymphocytes # (Auto) 1.7 Thou/mm3 (1.0-4.8); Lymphocytes % (Auto) 16 % (10-50); Mean Corpuscular HGB Conc 35.1 g/dl (31.0-37.0); Mean Corpuscular Hemoglobin 31.3 pg (25.0-35.0); Mean Corpuscular Volume 89 fL (80-100); Monocytes # (Auto) 0.7 Thou/mm3 (0.0-0.8); Monocytes % (Auto) 7 % (0-12); Neutrophils # (Auto) 7.7 Thou/mm3 (1.8-7.7); Neutrophils % (Auto) 73 % (37-80); Nucleated Red Blood Cell % 0 /100 WBC (0); Platelet Count 195 Thou/mm3 (140-440); RDW Standard Deviation 43.3 fL (35.1-43.9); Red Blood Count 4.47 Miln/mm3 (4.50-5.90); White Blood Count 10.4 Thou/mm3 (3.8-10.6)
[2024-05-26 07:22] LABS: Alanine Aminotransferase 21 U/L (10-49); Albumin/Globulin Ratio 1.5 (1.2-2.2); Alkaline Phosphatase 62 U/L (46-116); Anion Gap 14 (7-16); Aspartate Amino Transferase 44 U/L (0-34); BUN/Creatinine Ratio 16 Ratio (12-20); Blood Urea Nitrogen 14 mg/dL (9-23); Calcium 9.1 mg/dL (8.3-10.6); Calcium (Corrected) 9.1 mg/dL (8.5-10.1); Carbon Dioxide 23.5 mMol/L (20.0-31.0); Chloride 100 mMol/L (98-107); Creatinine (Component) 0.9 mg/dL (0.6-1.3); Estimated Creatinine Clearance 52.2 mL/min (>60); Globulin 2.6 gm/dL (2.3-3.5); Glucose 178 mg/dL (74-106); Magnesium 1.8 mg/dL (1.6-2.6); Osmolality,Calculated 278 (275-295); Phosphorous 2.1 mg/dL (2.4-5.1); Potassium 3.6 mMol/L (3.4-5.1); Sodium 137 mMol/L (136-145); Total Protein 6.6 gm/dL (5.7-8.2); eGFR > 60 See Note
[2024-05-26] MEDS: INSULIN LISPRO (AdmeLOG) 1 UNIT/0.01 ML UNIT SC ×4 (07:25→21:10)
[2024-05-26] MEDS: NAPH,KPH MBDB 1 PACKET (1.5 GM) PO (08:41)
[2024-05-26] MEDS: METOPROLOL SUCCINATE XL 25 MG TABCR 50 MG PO ×2 (08:41→21:12)
[2024-05-26] MEDS: ATORVASTATIN CALCIUM 10 MG TABLET PO (08:42)
[2024-05-26] MEDS: amLODIPine BESYLATE 5 MG TABLET PO ×2 (08:42→11:37)
[2024-05-26] MEDS: LOSARTAN POTASSIUM 25 MG TABLET 100 MG PO (08:42)
[2024-05-26] MEDS: cefTRIAXone/D5w 2gm 2 GM/50 ML BAG IV (08:42)
[2024-05-26] MEDS: HEPARIN SOD INJ 5000 UNIT/ML VIAL SC ×2 (08:43→21:11)
[2024-05-26] MEDS: Magnesium Sulfate 4 GM Ivpb 4 GM/50 ML BAG IV (08:43)
--- NOTE | 2024-05-26 09:27 | PC.SS ---
SS follow up note; SS contacted patient's son, Demario in regards to discharge plan and he stated patient will be discharging back home. Patient is pending PT eval to determine if he would need HH services. SS will stand by for further needs.
[2024-05-26] MEDS: DUTASTERIDE 0.5 MG CAPSULE (NON-FORMULARY) PO (10:40)
[2024-05-26] MEDS: [UNRECOGNIZED DRUG - OTHER] IV (13:36)
[2024-05-26] MEDS: STERILE WATER IV (13:36)
[2024-05-26] MEDS: SODIUM CHLORIDE IV (13:36)
--- NOTE | 2024-05-26 13:49 | ESPR_ITS ---
Documentation for date of: 05/26/24 Subjective Subjective Interval history: Patient seen and examined at bedside. He is sitting upright on the edge of his bead, awake, alert, interactive and talkative. He is saturating on 2L of NC. Exam Vital Signs Temp Pulse Resp BP Pulse Ox O2 Del Method O2 Flow Rate 97.3 F 77 16 151/79 H 97 Nasal Cannula 2 05/26/24 11:42 05/26/24 12:00 05/26/24 12:00 05/26/24 11:42 05/26/24 12:00 05/26/24 11:42 05/26/24 12:00 FiO2 30 05/26/24 04:00 Narrative Exam Constitutional: Elderly male, awake, alert, interactive. AAO to name, place HEENT: NCAT. Vision grossly intact. Respiratory: Decreased breath sounds bilaterally Cardiac: Non-tachycardic Abdomen: Soft, non-distended, non-tender. MSK: No B/L LE edema. Skin: Warm, dry, intact. No obvious lesions. Neuro: Motor and sensation grossly intact. Psychiatric: Appropriate mood and affect. Tangiental Objective Labs 05/26/24 06:29 05/26/24 06:29 Labs: Laboratory Results - last 24 hr 05/26/24 06:29 WBC 10.4 RBC 4.47 L Hgb 14.0 D Hct 39.9 L MCV 89 MCH 31.3 MCHC 35.1 RDW Std Deviation 43.3 Plt Count 195 D Neut % (Auto) 73 Lymph % (Auto) 16 [place] % (Auto) 7 Eos % (Auto) 2 Baso % (Auto) 1 Neut # (Auto) 7.7 Lymph # (Auto) 1.7 [place] # (Auto) 0.7 Eos # (Auto) 0.2 Baso # (Auto) 0.1 Immature Gran # (Auto) 0.09 H Absolute Nucleated RBC 0.00 Immature Gran % 1 H Nucleated RBC % 0 Sodium 137 Potassium 3.6 D Chloride 100 Carbon Dioxide 23.5 Anion Gap 14 BUN 14 Creatinine 0.9 Estim Creat Clear Calc 52.2 L eGFR > 60 BUN/Creatinine Ratio 16 Glucose 178 H Calculated Osmolality 278 Calcium 9.1 Corrected Calcium 9.1 Phosphorus 2.1 L Magnesium 1.8 Total Bilirubin 1.0 AST 44 H ALT 21 Alkaline Phosphatase 62 Total Protein 6.6 Albumin 4.0 D Globulin 2.6 Albumin/Globulin Ratio 1.5 ABG Interpretation ABG results: 05/22/24 05/23/24 19:52 08:22 ABG pH 7.39 7.38 ABG pCO2 40 44 ABG pO2 141 H 93 D ABG HCO3 24 26 ABG O2 Saturation 100 H 98 ABG Base Excess -1 1 Quality Measures Quality Measures VTE prophylaxis and sepsis Current suspected stage: ruled out Possible source: pulmonary Blood cultures ordered: yes Antibiotic ordered: Yes Advance care planning discussed with:: other Assessment & Plan Assessment Current Active Medications: Generic Name Dose Route Start Last Admin Trade Name Freq PRN Reason Stop Dose Admin Acetaminophen 650 mg 05/25/24 00:19 05/25/24 00:25 Acetaminophen 325 Mg Tablet PO 06/21/24 21:34 650 mg Q6H PRN Administration Fever >101.5, or pain 1-4 Amlodipine Besylate 10 mg 05/27/24 09:00 Amlodipine Besylate 5 Mg Tablet PO 06/26/24 08:59 QDAY JAQUELIN Atorvastatin Calcium 10 mg 05/24/24 15:00 05/26/24 08:42 Atorvastatin Calcium 10 Mg Tablet PO 06/23/24 14:59 10 mg QDAY JAQUELIN Administration Dextrose 25 ml 05/22/24 21:35 Dextrose 50%-Water Inj 50 Ml Syringe IV 06/21/24 21:34 Q15MIN PRN BG 50-70 responsive npo pt Dextrose 50 ml 05/22/24 21:35 Dextrose 50%-Water Inj 50 Ml Syringe IV 06/21/24 21:34 Q15MIN PRN BG <50 OR BG <70 & pt unresponsive Dutasteride 0.5 mg 05/24/24 15:00 05/26/24 10:40 Dutasteride 0.5 Mg Capsule (Non-Formulary) PO 06/23/24 14:59 0.5 mg QDAY JAQUELIN Administration Glucagon 1 mg 05/22/24 21:35 Glucagon Inj 1 Mg Vial IM Q15MIN PRN BG <70, and no IV access Heparin Sodium (Porcine) 5,000 unit 05/24/24 10:30 05/26/24 08:43 Heparin Sod Inj 5000 Unit/Ml Vial SC 06/07/24 10:29 5,000 unit BID JAQUELIN Administration Cefuroxime Sodium 750 mg/ 58 mls @ 116 mls/hr 05/26/24 14:00 05/26/24 13:36 Sterile Water 8 ml/ Sodium IV 06/02/24 13:59 116 mls/hr Chloride Q8HR JAQUELIN Administration Insulin Human Lispro 0 unit 05/24/24 21:00 05/26/24 11:18 Insulin Lispro (Admelog) 1 Unit/0.01 Ml Unit SC 06/23/24 20:59 1 unit ACHS JAQUELIN Administration Protocol Losartan Potassium 100 mg 05/26/24 09:00 05/26/24 08:42 Losartan Potassium 25 Mg Tablet PO 06/25/24 08:59 100 mg QDAY JAQUELIN Administration Metoprolol Succinate 50 mg 05/26/24 09:00 05/26/24 08:41 Metoprolol Succinate Xl 25 Mg Tabcr PO 06/25/24 08:59 50 mg BID JAQUELIN Administration Ondansetron HCl 4 mg 05/22/24 17:25 Ondansetron Inj 2 Mg/Ml Inj 2 Ml IV 06/21/24 17:24 Q4HR PRN NAUSEA OR VOMITING Plan Max Geremias is an 88-year-old male with a past medical history of hypertension, CAD s/p stent x 2, diabetes mellitus not on insulin, acoustic neuroma, and BPH who presented to the ED with acute encephalopathy and was sedated and intubated for combativeness and admitted to ICU for further management on 05/22. Extubated on 05/24. 05/25 patient was downgraded to internal medicine team for further cardiac and pneumonia management. #Acute encephalopathy, metabolic vs infectious; resolving - Delirium precautions - Treat underlying factors as below #Acute hypoxic respiratory due to H Influenza Pneumonia CT imaging shows bilateral pneumnia. Leukocytosis resolved. Treated with Vancomycin and cefepime (05/22-05/23), Azithromycin 500 mg x3 days (05/23-05/25), Flagyl (05/22-05/25) and Ceftriaxone (05/23-05/26). Sputum culturew grew H Influenza. - Antibiotics changed to cefuroxime - Wean O2 as needed #Hypertension -Home meds: Olmesartan 40 mg daily and amlodipine 5 mg ? Losartan 100mg + Amlodipine 10mg + Metoprolol 50mg BID ?BP has been elevated, will continue to monitor #Paroxysmal Afib with RVR, resolved Likely due to underlying septic shock, resolved. Cardiology consulted, do not recommend anticoagulation due to paroxysmal event. - Cardiology Dr. Seaman following - Metoprolol 50mg BID - Follow up with cardiology outpatient #CAD s/p stents Echo on 05/23 showed EF 55-60%, grade 1 diastolic dysfunction. RVSP 60 mmHg. Mild MR, AI, , moderate TR. - Continue statin #History of diabetes mellitus A1c 8.9% - ISS #BPH - Continue home dutasteride #Septic shock, resolved #Lactic acidosis, resolved #History of acoustic neuroma Health Maintenance Disposition: Admit for AMS, resolved; continue IV antibiotics for CAP. Anticipate dc tomorrow Diet and fluids: cardiac, carb consistent DVT prophylaxis: heparin GI prophylaxis: protonix Lines: PIV CODE STATUS: FULL I have reviewed and discussed the patient's care with my attending, Dr. Angelo Isabel MD PGY3
--- NOTE | 2024-05-26 14:13 | PC.PT ---
05/26/2024 PT eval performed and recommend home health services as well as 24ht supervision to return home d/t fall risk and impulsivity displayed during PT eval
--- NOTE | 2024-05-26 15:43 | XR_ITS ---
Examination: CT brain head without contrast. 2-D sagittal coronal reconstructions Date and time of exam:May 26, 2024 1557 hrs. Comparison May 22, 2024 Indications: Stroke alert, onset focal neurologic deficit altered mental status beginning 30 minutes ago CTDI: vol (mGy):54.8 DLP: (mGycm):1078 Technique: Multiple CT axial sections of the brain have been obtained, 5 mm slice thickness. Contrast has not been administered. 2-D sagittal, coronal reconstructions have been obtained Low dose protocols were performed. One or more of the following dose reduction techniques were used; automated exposure control, adjustment of the mA and/or KV according to patient size, use of iterative reconstruction technique. Findings: No significant ventricular enlargement. 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 No mass effect or midline shift Basal cisterns are not remarkable. Fourth ventricle is midline. Cranial vault intact. Impression: Negative for acute hemorrhage, mass effect or midline shift
--- NOTE | 2024-05-26 15:49 | ESPR_ITS ---
RE: SAMUEL ARCHULETA : 1935 DATE OF SERVICE: 05/26/2024 SUBJECTIVE: Samuel Archuleta is an 88-year-old male known to me as well as history of CAD, multiple stents placed, has severe hypertension, question of neuroma, admitted to the hospital with syncopal episode and altered mental status. He was initially septic with lactic acid improved significantly. He had AFib RVR while he was intubated, but appears to improve. He is known to have severe hypertension. His blood pressure is still running somewhat high, but feeling better. He wants to go home. He is completely able to recognize everybody. He does not complain of any shortness of breath or chest pain. No further atrial fibrillation is seen. OBJECTIVE: General: Exam shows alert, awake, in no acute distress. Vital Signs: Blood pressure is 130/80. Pulse rate is 90. Respiration is 16, temperature normal. HEENT: Head is atraumatic Neck: Supple. No JVD Chest: Symmetrical. Lungs: Decreased breath sounds. No rales or rhonchi. Heart: S1, S2 regular. No gallop. Abdomen: Abdomen is thin and soft. Extremities: No edema. ASSESSMENT: 1. Syncopal episode, possibly due to sepsis. 2. Atrial fibrillation during acute intubation, resolved spontaneously without antiarrhythmic drug therapy. 3. Hypertension. 4. Known coronary artery disease, status post stent placement. RECOMMENDATIONS: The patient is hypertensive, hence we will continue the metoprolol 50 mg twice daily for hypertension. I also recommend losartan 100 mg daily to be continued for hypertension. The patient normally takes olmesartan at home. We will resume that when he goes home. If physical therapy to be obtained and once the patient is stable can be discharged home. I will see him for followup in two weeks. Currently on amlodipine 10 mg, metoprolol 100 mg, losartan 100 mg should control hypertension. The patient did have a syncopal episode, still not clear the etiology, could be due to underlying sepsis and hypotension, but appears to have resolved for now. DT: 14:38:47 TT: 15:32:00 Ref: [id number] - TID: [id number]
--- NOTE | 2024-05-26 16:14 | PD.RESEVENT ---
Documentation for date of: 05/26/24 Event Note Event Note: RR called at 3:30 for altered mental status. Vitals at bedside SBP 190s, HR ~ 100 saturating on room air. Bedside blood sugar 197. On physical exam, patient obtunded, staring blankly at ceiling with eyes flickering back and forth, rigid neck but flaccid extremities. Eyes equal and reactive to light, with some left sided gaze. No tongue biting or incontinence noted. Labs and meds reviewed. IV labetolol was ordered for SBP however BP improved to 160, so labetolol was held. Stroke alert was called and patient went to CT. I spoke with teleneurology while patient was in CT. Prior to going into the CT machine, patient became to move his extremities spontaneously and tried to get out of the gurney. CT imaging did not show any large stroke or bleeds. Suspect patient is post-ictal and had a seizure. Teleneurologist recommended holding off the aspirin until after MRI and to complete CTA workup. After CT, patient was AAO x 4 name, place, date, president. He denies history of seizures but endorses passing out at home. EEG was ordered and neurology consult with Dr. Ferro was placed, who recommended loading dose 1000mg of depkaote then 750mg BID tomorrow. #Acute encephalopathy secondary to stroke versus seizure Patient was post-ictal, resolved. - Seizure precautions - Depakote loading dose 1000 + 750mg BID tomorrow - MRI ordered - EEG ordered - Discontinued cefuroxime as it lowers seizure threshold; started IV levofloxacin. No QT prolongation noted. - Bedside swallow - Seizure precautions - Neurologist Dr. Ferro consulted I have reviewed and discussed the patient's care with my attending, Dr. Angelo Isabel MD PGY-3
--- NOTE | 2024-05-26 16:20 | PD.TNEURO ---
Tele Neuro Consultation Consultation Date 05/26/24 Most Recent Vital Signs Last Vital Signs Temp 97.3 F 05/26/24 15:32 Pulse 103 H 05/26/24 15:32 Resp 16 05/26/24 15:32 BP 187/104 H 05/26/24 15:32 Pulse Ox 97 05/26/24 15:32 O2 Del Method Nasal Cannula 05/26/24 15:32 O2 Flow Rate 2 05/26/24 15:32 FiO2 30 05/26/24 04:00 Laboratory-Coagulation Panel PT 12.4 Seconds (9.0-12.2) H 05/22/24 17:34 INR 1.1 (0.9-1.3) 05/22/24 17:34 APTT 27.5 Seconds (22.0-36.0) 05/22/24 17:34 Consultation Narrative [facility] Patient Name:???DONALD MAYERS Date of :???1935 Identification Number:??? 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 No facial droop or antigravity deficits were noted. The episode lasted for an undisclosed duration. Patient has been improving and is now moving all extremities. no thrombolytic therapy candidate. There is no history of seizures. The clinical presentation is consistent with a postictal state, suggesting a seizure event, vs less likely CVA. CT scan showed no evidence of intracranial hemorrhage. CTA pending. ? ? Our recommendations are outlined below. Recommendations: ? Stroke/Telemetry Floor ? Neuro Checks ? Bedside Swallow Eval ? DVT Prophylaxis ? IV Fluids, Normal Saline ? Head of Bed 30 Degrees ? Euglycemia and Avoid Hyperthermia (PRN Acetaminophen) ? Initiate or continue Aspirin 81 MG daily ?-Load with Keppra 1500 mg ?-Brain MRI ?-Seizure percussion ?-Consider Routine EEG ?- Perform CT Angiography to rule out large vessel occlusion ?- Administer low-dose aspirin pending MRI results to decide for continuation. Sign Out: ? Discussed with Emergency Department Provider Advanced Imaging:Advanced imaging has been ordered. Results pending. Metrics: Last Known Well: 05/26/2024 15:33:00 Dispatch Time: 05/26/2024 15:44:04 Initial Response Time: 05/26/2024 15:46:33Symptoms: AMS. Initial patient interaction: 05/26/2024 15:50:00 NIHSS Assessment Completed: 05/26/2024 15:52:47Patient is not a candidate for Thrombolytic. Thrombolytic Medical Decision: 05/26/2024 15:53:05Patient was not deemed candidate for Thrombolytic because of following reasons: Seizure at onset with postictal residual neurological impairments . I personally Reviewed the CT Head and it Showed no acute events Primary Provider Notified of Diagnostic Impression and Management Plan on: 05/26/2024 16:08:03 Spoke With: Maame Able to Reach Attempted to reach the consulting physician but was unsuccessful History of Present Illness:Patient is a 88 year old Male. Inpatient stroke alert was called for symptoms of AMS. The patient presented with an episode of altered mental status, which is suspected to be a seizure. The exact duration of this episode remains unclear. Prior to this event, the patient's baseline status was reported as normal. Currently, the patient is admitted to the hospital with a diagnosis of pneumonia and has been started on Abx. There is no reported history of seizures. During the episode, the patient exhibited symptoms including a fixed gaze without any facial droop. Presently, the patient is moving all extremities equally, which suggests a postictal state. During the exam he start to moving all body more. ? Past Medical History: ?Diabetes Mellitus ?Atrial Fibrillation unable to obtain due to:?? Patient Is Obtunded/ Comatose Medications: No Anticoagulant use? No Antiplatelet use Reviewed EMR for current medications Allergies:? Reviewed Allergies Unable To Obtain Due To:?Patient Is Obtunded/ Comatose Social History: Unable To Obtain Due To Patient Status :?Patient Is Obtunded/ Comatose Family History: Family History Cannot Be Obtained Because:Patient Is Obtunded/ Comatose ROS :?ROS Cannot Be Obtained Because:? Patient Is Obtunded/ Comatose Past Surgical History: Past Surgical History Cannot Be Obtained Because: Patient Is Obtunded/ Comatose There Is No Surgical History Contributory To Today?s Visit NIHSS may not be reliable due to: Patient is comatose Examination: BP(197/),?Pulse(103),?Blood Glucose(197) 1A: Level of Consciousness - Movements to Pain?+ 2 1B: Ask Month and Age - Could Not Answer Either Question Correctly?+ 2 1C: Blink Eyes & Squeeze Hands - Performs Both Tasks?+ 0 2: Test Horizontal Extraocular Movements - Normal?+ 0 3: Test Visual Child - No Visual Loss?+ 0 4: Test Facial Palsy (Use Grimace if Obtunded) - Normal symmetry?+ 0 5A: Test Left Arm Motor Drift - Some Effort Against Stevenson?+ 2 5B: Test Right Arm Motor Drift - Some Effort Against Stevenson?+ 2 6A: Test Left Leg Motor Drift - Some Effort Against Stevenson?+ 2 6B: Test Right Leg Motor Drift - Some Effort Against Stevenson?+ 2 7: Test Limb Ataxia (FNF/Heel-Caldera) - Does Not Understand?+ 0 8: Test Sensation - Normal; No sensory loss?+ 0 9: Test Language/Aphasia - Coma/Unresponsive?+ 3 10: Test Dysarthria - Mute/Anarthric?+ 2 11: Test Extinction/Inattention - No abnormality?+ 0 NIHSS Score:?17 Pre-Morbid Modified Bertha Scale:Unable to assess Spoke with :?Limvalencia This consult was conducted in real time using interactive audio and video technology. Patient was informed of the technology being used for this visit and agreed to proceed. Patient located in hospital and provider located at home/office setting. Patient is being evaluated for possible acute neurologic impairment and high probability of imminent or life-threatening deterioration. I spent total of 35 minutes providing care to this patient, including time for face to face visit via telemedicine, review of medical records, imaging studies and discussion of findings with providers, the patient and/or family. Dr Jose Luis Torres [facility] For Inpatient follow-up with [facility] physician please call [facility] at . As we are not an outpatient service for any post hospital discharge needs please contact the hospital for assistance. If you have any questions for the [facility] physicians or need to reconsult for clinical or diagnostic changes please contact us via [facility] at .
--- NOTE | 2024-05-26 17:18 | PC.NURSE ---
RT IS DOING A EEG IN ROOM .
[2024-05-26] MEDS: ASPIRIN EC 81 MG TABEC PO (17:36)
[2024-05-26] MEDS: VALPROIC ACID SYRUP 250 MG/5 ML UDC 1000 MG PO (17:40)
[2024-05-27] VITALS (11 sets, daily range): BP systolic 126–167; BP diastolic 54–89; PULSE 65–97; RESP 16–24; TEMP 36.2–36.9; O2SAT 92–97; BMI 23.3
[2024-05-27 06:14] LABS: Basophils # (Auto) 0.1 Thou/mm3 (0.0-0.2); Basophils % (Auto) 1 % (0-2.5); Eosinophils # (Auto) 0.7 Thou/mm3 (0.0-0.5); Eosinophils % (Auto) 7 % (0-10); Hematocrit 41.4 % (41.0-53.0); Hemoglobin 14.4 g/dL (13.5-16.0); Immature Granulocytes % (Auto) 2 % (0-0); Immature Granulocytes Auto 0.18 Thou/mm3 (0.00-0.00); Lymphocytes # (Auto) 2.2 Thou/mm3 (1.0-4.8); Lymphocytes % (Auto) 23 % (10-50); Mean Corpuscular HGB Conc 34.8 g/dl (31.0-37.0); Mean Corpuscular Hemoglobin 31.4 pg (25.0-35.0); Mean Corpuscular Volume 90 fL (80-100); Monocytes % (Auto) 10 % (0-12); Neutrophils # (Auto) 5.5 Thou/mm3 (1.8-7.7); Neutrophils % (Auto) 57 % (37-80); Nucleated Red Blood Cell % 0 /100 WBC (0); Platelet Count 209 Thou/mm3 (140-440); RDW Standard Deviation 43.9 fL (35.1-43.9); Red Blood Count 4.58 Miln/mm3 (4.50-5.90); White Blood Count 9.6 Thou/mm3 (3.8-10.6)
[2024-05-27 06:25] LABS: Alanine Aminotransferase 27 U/L (10-49); Albumin, Serum 4.2 gm/dL (3.4-4.8); Albumin/Globulin Ratio 1.6 (1.2-2.2); Alkaline Phosphatase 71 U/L (46-116); Anion Gap 12 (7-16); Aspartate Amino Transferase 51 U/L (0-34); BUN/Creatinine Ratio 16 Ratio (12-20); Bilirubin,Total 0.9 mg/dL (0.3-1.2); Blood Urea Nitrogen 16 mg/dL (9-23); Calcium 9.2 mg/dL (8.3-10.6); Calcium (Corrected) 9.2 mg/dL (8.5-10.1); Carbon Dioxide 29.5 mMol/L (20.0-31.0); Chloride 98 mMol/L (98-107); Globulin 2.6 gm/dL (2.3-3.5); Glucose 190 mg/dL (74-106); Osmolality,Calculated 283 (275-295); Phosphorous 2.5 mg/dL (2.4-5.1); Potassium 3.4 mMol/L (3.4-5.1); Sodium 139 mMol/L (136-145); Total Protein 6.8 gm/dL (5.7-8.2); eGFR > 60 See Note
[2024-05-27] MEDS: INSULIN LISPRO (AdmeLOG) 1 UNIT/0.01 ML UNIT SC ×4 (07:11→21:09)
[2024-05-27] MEDS: DUTASTERIDE 0.5 MG CAPSULE (NON-FORMULARY) PO (08:33)
[2024-05-27] MEDS: LOSARTAN POTASSIUM 25 MG TABLET 100 MG PO (08:33)
[2024-05-27] MEDS: LEVOFLOXACIN/D5W 750MG IVPB 750 MG/150 ML BAG 150 MG IV (08:34)
[2024-05-27] MEDS: ATORVASTATIN CALCIUM 10 MG TABLET PO (08:34)
[2024-05-27] MEDS: amLODIPine BESYLATE 5 MG TABLET 10 MG PO (08:34)
[2024-05-27] MEDS: ASPIRIN EC 81 MG TABEC PO (08:34)
[2024-05-27] MEDS: METOPROLOL SUCCINATE XL 25 MG TABCR 50 MG PO ×2 (08:34→21:11)
[2024-05-27] MEDS: HEPARIN SOD INJ 5000 UNIT/ML VIAL SC ×2 (08:35→21:10)
[2024-05-27] MEDS: DIVALPROEX SOD 125 MG SPRINKLE 750 MG PO ×2 (09:15→21:12)
--- NOTE | 2024-05-27 12:14 | PCS.ST ---
Pt refused evaluation, got agitated. ST will re-attempt tomorrow. CLAIMS ACCOUNT SPECIALIST informed pt tolerated breakfast without overt signs of aspiration.
--- NOTE | 2024-05-27 13:06 | PD.RESPRO ---
Documentation for date of: 05/27/24 Subjective Subjective Interval history: Overnight patient had episode of SBP up to 190, was found to be obtunded, rigid neck with flaccid extremities, unresponsive. Stroke alert was called, patient has CT which is unremarkable. Teleneuro was consulted. Patient spontaneously covered, ANO x 4, able to follow commands and move all extremities appropriately. Patient endorses recollection of events while obtunded, states he remembers people trying to get him to respond but him being unable to, recalls them attempting to elicit response via noxious stimuli including physical force. Patient denies any known history of seizures, however suspect seizure with postictal state. MRI and EEG ordered, pending. Patient was on cefuroxime, held due to lowered seizure threshold. Patient seen and examined at bedside. Patient resting comfortably, back to baseline mental status. Endorses recollection of events while attended. Denies chest pain, shortness of breath, orthopnea, palpitations. Lab significant for hemoglobin 14.4, sodium 139, potassium 3.4, BUN 16, creatinine 1.0, GFR greater than 60, glucose 190, magnesium 2.0. Keep potassium greater than 4, magnesium greater than 2, can give additional magnesium. Blood pressure remains elevated, recommend increasing metoprolol to 150. Exam Vital Signs Temp Pulse Resp BP Pulse Ox O2 Del Method O2 Flow Rate 97.1 F 65 16 147/89 H 94 L Nasal Cannula 2 05/27/24 12:00 05/27/24 12:00 05/27/24 12:00 05/27/24 12:00 05/27/24 12:00 05/27/24 04:00 05/27/24 04:00 FiO2 30 05/27/24 00:00 Narrative Exam Constitutional: Elderly male, awake, alert, interactive. HEENT: NCAT. Vision grossly intact. Respiratory: Decreased breath sounds bilaterally Cardiac: Regular rate and rhythm, no murmurs. Abdomen: Soft, non-distended, non-tender. MSK: No B/L LE edema. Skin: Warm, dry, intact. No obvious lesions. Neuro: Motor and sensation grossly intact. AO&O x 4 Objective Labs 05/27/24 04:41 05/27/24 04:41 Labs: Laboratory Results - last 24 hr 05/27/24 04:41 WBC 9.6 RBC 4.58 Hgb 14.4 Hct 41.4 MCV 90 MCH 31.4 MCHC 34.8 RDW Std Deviation 43.9 Plt Count 209 Neut % (Auto) 57 Lymph % (Auto) 23 [place] % (Auto) 10 Eos % (Auto) 7 Baso % (Auto) 1 Neut # (Auto) 5.5 Lymph # (Auto) 2.2 [place] # (Auto) 1.0 H Eos # (Auto) 0.7 H Baso # (Auto) 0.1 Immature Gran # (Auto) 0.18 H Absolute Nucleated RBC 0.00 Immature Gran % 2 H Nucleated RBC % 0 Sodium 139 Potassium 3.4 Chloride 98 Carbon Dioxide 29.5 Anion Gap 12 BUN 16 Creatinine 1.0 Estim Creat Clear Calc 47.0 L eGFR > 60 BUN/Creatinine Ratio 16 Glucose 190 H Calculated Osmolality 283 Calcium 9.2 Corrected Calcium 9.2 Phosphorus 2.5 Magnesium 2.0 Total Bilirubin 0.9 AST 51 H ALT 27 Alkaline Phosphatase 71 Total Protein 6.8 Albumin 4.2 Globulin 2.6 Albumin/Globulin Ratio 1.6 ABG Interpretation ABG results: 05/22/24 05/23/24 19:52 08:22 ABG pH 7.39 7.38 ABG pCO2 40 44 ABG pO2 141 H 93 D ABG HCO3 24 26 ABG O2 Saturation 100 H 98 ABG Base Excess -1 1 Quality Measures Quality Measures VTE prophylaxis and sepsis Current suspected stage: sepsis Possible source: pulmonary Blood cultures ordered: yes Antibiotic ordered: Yes Advance care planning discussed with:: patient Assessment & Plan Assessment Current Active Medications: Generic Name Dose Route Start Last Admin Trade Name Freq PRN Reason Stop Dose Admin Acetaminophen 650 mg 05/25/24 00:19 05/25/24 00:25 Acetaminophen 325 Mg Tablet PO 06/21/24 21:34 650 mg Q6H PRN Administration Fever >101.5, or pain 1-4 Amlodipine Besylate 10 mg 05/27/24 09:00 05/27/24 08:34 Amlodipine Besylate 5 Mg Tablet PO 06/26/24 08:59 10 mg QDAY JAQUELIN Administration Aspirin 81 mg 05/26/24 16:45 05/27/24 08:34 Aspirin Ec 81 Mg Tabec PO 06/25/24 16:44 81 mg QDAY JAQUELIN Administration Atorvastatin Calcium 10 mg 05/24/24 15:00 05/27/24 08:34 Atorvastatin Calcium 10 Mg Tablet PO 06/23/24 14:59 10 mg QDAY JAQUELIN Administration Dextrose 25 ml 05/22/24 21:35 Dextrose 50%-Water Inj 50 Ml Syringe IV 06/21/24 21:34 Q15MIN PRN BG 50-70 responsive npo pt Dextrose 50 ml 05/22/24 21:35 Dextrose 50%-Water Inj 50 Ml Syringe IV 06/21/24 21:34 Q15MIN PRN BG <50 OR BG <70 & pt unresponsive Divalproex Sodium 750 mg 05/27/24 09:00 05/27/24 09:15 Divalproex Sod 125 Mg Sprinkle PO 06/26/24 08:59 750 mg BID JAQUELIN Administration Dutasteride 0.5 mg 05/24/24 15:00 05/27/24 08:33 Dutasteride 0.5 Mg Capsule (Non-Formulary) PO 06/23/24 14:59 0.5 mg QDAY JAQUELIN Administration Glucagon 1 mg 05/22/24 21:35 Glucagon Inj 1 Mg Vial IM Q15MIN PRN BG <70, and no IV access Heparin Sodium (Porcine) 5,000 unit 05/24/24 10:30 05/27/24 08:35 Heparin Sod Inj 5000 Unit/Ml Vial SC 06/07/24 10:29 5,000 unit BID JAQUELIN Administration Levofloxacin/Dextrose 750 mg in 150 mls @ 150 mls/hr 05/27/24 09:00 05/27/24 08:34 Levaquin Ivpb IV 06/03/24 08:59 150 mls/hr QDAY JAQUELIN Administration Insulin Human Lispro 0 unit 05/24/24 21:00 05/27/24 11:05 Insulin Lispro (Admelog) 1 Unit/0.01 Ml Unit SC 06/23/24 20:59 2 unit ACHS JAQUELIN Administration Protocol Lorazepam 2 mg 05/26/24 15:39 Lorazepam 2 Mg/Ml Vial IVP 05/31/24 15:38 X1 PRN seizure Losartan Potassium 100 mg 05/26/24 09:00 05/27/24 08:33 Losartan Potassium 25 Mg Tablet PO 06/25/24 08:59 100 mg QDAY JAQUELIN Administration Metoprolol Succinate 50 mg 05/26/24 09:00 05/27/24 08:34 Metoprolol Succinate Xl 25 Mg Tabcr PO 06/25/24 08:59 50 mg BID JAQUELIN Administration Ondansetron HCl 4 mg 05/22/24 17:25 Ondansetron Inj 2 Mg/Ml Inj 2 Ml IV 06/21/24 17:24 Q4HR PRN NAUSEA OR VOMITING Plan 88-year-old male with a past medical history of hypertension, CAD s/p stent x 2, diabetes mellitus not on insulin, acoustic neuroma, and BPH who presented to the ED with acute encephalopathy and was sedated and intubated for combativeness and admitted to ICU for further management on 05/22. Extubated on 05/24. 05/25 patient was downgraded to internal medicine team for further cardiac and pneumonia management. #Seizure with postictal state versus acute stroke (less likely) Patient was found to have elevated blood pressure, SBP up to 190, obtunded, with rigid neck and flaccid extremities. Patient had CT head which is unremarkable, teleneuro consulted. Patient has no known history of seizures. Patient experienced on pain his recovery, A&O x 4, appropriately following commands. Patient expressed recollection of events while attended. Patient had recently been started on cefuroxime, changed to levofloxacin. Suspect seizure with postictal state. Patient resting comfortably, back to baseline mental status. Endorses recollection of events while attended. -MRI and EEG ordered, follow-up -Aspirin 81 mg p.o. daily -Seizure precautions -Elevate head of bed 30 degrees -Aspiration precautions -Depakote 750 mg p.o. twice daily #Acute hypoxic respiratory due to H Influenza Pneumonia CT imaging shows bilateral pneumnia. Leukocytosis resolved. Treated with Vancomycin and cefepime (05/22-05/23), Azithromycin 500 mg x3 days (05/23-05/25), Flagyl (05/22-05/25) and Ceftriaxone (05/23-05/26). Sputum culturew grew H Influenza. Antibiotics changed to cefuroxime, levofloxacin due to decreased seizure threshold from cefuroxime. -Wean O2 as needed #Hypertension Home meds: Olmesartan 40 mg daily and amlodipine 5 mg. Patient blood pressures remain elevated despite therapy, can increase metoprolol to 150 mg twice daily. -Losartan 100mg + Amlodipine 10mg + Metoprolol 50mg BID #Acute encephalopathy, metabolic vs infectious; resolving Patient presented with acute encephalopathy, likely due to underlying sepsis. Patient quired intubation for airway protection due to low GCS, was treated in ICU for 2 days. Patient effectively extubated and downgraded to floors, A&Ox4, follow commands appropriately. -Delirium precautions -Treat underlying factors as below #Paroxysmal Afib with RVR, resolved Patient developed A-fib with RVR shortly after intubation. Patient was starting diltiazem drip, however it was discontinued due to soft BP. However patient spontaneously converted back to sinus rhythm. Likely related to underlying sepsis and process of intubation. -Metoprolol 50mg BID can increase to 150 mg -Cardiac monitoring -Patient does not require anticoagulation at this time -Follow up with cardiology 1-2 weeks after discharge #CAD s/p stents Echo on 05/23 showed EF 55-60%, grade 1 diastolic dysfunction. RVSP 60 mmHg. Mild MR, AI, , moderate TR. -Continue statin #History of diabetes mellitus A1c 8.9% -ISS #BPH -Continue home dutasteride DVT prophylaxis: Heparin GI prophylaxis: Not needed Diet: Cardiac Lines: Peripheral IV Code status: Full code Plan of care discussed with attending Dr. Castro. Priyank Ellis MD PGY?1 Attending Provider Attestation/Addendum I have personally seen and examined the patient separately on the above date of service and discussed the plan of care with the resident. I reviewed the resident Dr. Priyank Ellis consultation progress note and agree with the resident findings and plan in the note above and have also edited the documentation to reflect my findings and plan. Leo Castro M.D. Interventional Cardiology
--- NOTE | 2024-05-27 13:39 | PD.RESPRO ---
Documentation for date of: 05/27/24 Subjective Subjective Interval history: No acute complaints overnight. Patient seen and examined this morning. Patient states he had a busy day yesterday with all the testing. He states that he was awake and aware during the seizure but was unable to speak, respond, or move. He remembers being poked and being given lots of IV medication. This morning, patient states that I am hallucinating, I see words on the wall but nobody else can see it. He is pleasantly hallucinating but does not appeared bothered by it. He is moving spontaneously. Discussion limited due to patient being very hard of hearing. Exam Vital Signs Temp Pulse Resp BP Pulse Ox O2 Del Method O2 Flow Rate 97.1 F 65 16 147/89 H 94 L Nasal Cannula 2 05/27/24 12:00 05/27/24 12:00 05/27/24 12:00 05/27/24 12:00 05/27/24 12:00 05/27/24 04:00 05/27/24 04:00 FiO2 30 05/27/24 00:00 Narrative Exam Constitutional: Elderly male, awake, interactive. HEENT: NCAT. Vision grossly intact. Very hard of hearing. Respiratory: Decreased breath sounds bilaterally Cardiac: Regular rate and rhythm, no murmurs. Abdomen: Soft, non-distended, non-tender. MSK: No B/L LE edema. Skin: Warm, dry, intact. Neuro: Motor and sensation grossly intact. Psych: Visual hallucinations Objective Labs 05/27/24 04:41 05/27/24 04:41 Labs: Laboratory Results - last 24 hr 05/27/24 04:41 WBC 9.6 RBC 4.58 Hgb 14.4 Hct 41.4 MCV 90 MCH 31.4 MCHC 34.8 RDW Std Deviation 43.9 Plt Count 209 Neut % (Auto) 57 Lymph % (Auto) 23 [place] % (Auto) 10 Eos % (Auto) 7 Baso % (Auto) 1 Neut # (Auto) 5.5 Lymph # (Auto) 2.2 [place] # (Auto) 1.0 H Eos # (Auto) 0.7 H Baso # (Auto) 0.1 Immature Gran # (Auto) 0.18 H Absolute Nucleated RBC 0.00 Immature Gran % 2 H Nucleated RBC % 0 Sodium 139 Potassium 3.4 Chloride 98 Carbon Dioxide 29.5 Anion Gap 12 BUN 16 Creatinine 1.0 Estim Creat Clear Calc 47.0 L eGFR > 60 BUN/Creatinine Ratio 16 Glucose 190 H Calculated Osmolality 283 Calcium 9.2 Corrected Calcium 9.2 Phosphorus 2.5 Magnesium 2.0 Total Bilirubin 0.9 AST 51 H ALT 27 Alkaline Phosphatase 71 Total Protein 6.8 Albumin 4.2 Globulin 2.6 Albumin/Globulin Ratio 1.6 ABG Interpretation ABG results: 05/22/24 05/23/24 19:52 08:22 ABG pH 7.39 7.38 ABG pCO2 40 44 ABG pO2 141 H 93 D ABG HCO3 24 26 ABG O2 Saturation 100 H 98 ABG Base Excess -1 1 Quality Measures Quality Measures VTE prophylaxis and sepsis Current suspected stage: ruled out Possible source: pulmonary Blood cultures ordered: yes Antibiotic ordered: Yes Advance care planning discussed with:: patient Assessment & Plan Assessment Current Active Medications: Generic Name Dose Route Start Last Admin Trade Name Freq PRN Reason Stop Dose Admin Acetaminophen 650 mg 05/25/24 00:19 05/25/24 00:25 Acetaminophen 325 Mg Tablet PO 06/21/24 21:34 650 mg Q6H PRN Administration Fever >101.5, or pain 1-4 Amlodipine Besylate 10 mg 05/27/24 09:00 05/27/24 08:34 Amlodipine Besylate 5 Mg Tablet PO 06/26/24 08:59 10 mg QDAY JAQUELIN Administration Aspirin 81 mg 05/26/24 16:45 05/27/24 08:34 Aspirin Ec 81 Mg Tabec PO 06/25/24 16:44 81 mg QDAY JAQUELIN Administration Atorvastatin Calcium 10 mg 05/24/24 15:00 05/27/24 08:34 Atorvastatin Calcium 10 Mg Tablet PO 06/23/24 14:59 10 mg QDAY JAQUELIN Administration Dextrose 25 ml 05/22/24 21:35 Dextrose 50%-Water Inj 50 Ml Syringe IV 06/21/24 21:34 Q15MIN PRN BG 50-70 responsive npo pt Dextrose 50 ml 05/22/24 21:35 Dextrose 50%-Water Inj 50 Ml Syringe IV 06/21/24 21:34 Q15MIN PRN BG <50 OR BG <70 & pt unresponsive Divalproex Sodium 750 mg 05/27/24 09:00 05/27/24 09:15 Divalproex Sod 125 Mg Sprinkle PO 06/26/24 08:59 750 mg BID JAQUELIN Administration Dutasteride 0.5 mg 05/24/24 15:00 05/27/24 08:33 Dutasteride 0.5 Mg Capsule (Non-Formulary) PO 06/23/24 14:59 0.5 mg QDAY JAQUELIN Administration Glucagon 1 mg 05/22/24 21:35 Glucagon Inj 1 Mg Vial IM Q15MIN PRN BG <70, and no IV access Heparin Sodium (Porcine) 5,000 unit 05/24/24 10:30 05/27/24 08:35 Heparin Sod Inj 5000 Unit/Ml Vial SC 06/07/24 10:29 5,000 unit BID JAQUELIN Administration Levofloxacin/Dextrose 750 mg in 150 mls @ 150 mls/hr 05/27/24 09:00 05/27/24 08:34 Levaquin Ivpb IV 06/03/24 08:59 150 mls/hr QDAY JAQUELIN Administration Insulin Human Lispro 0 unit 05/24/24 21:00 05/27/24 11:05 Insulin Lispro (Admelog) 1 Unit/0.01 Ml Unit SC 06/23/24 20:59 2 unit ACHS JAQUELIN Administration Protocol Lorazepam 2 mg 05/26/24 15:39 Lorazepam 2 Mg/Ml Vial IVP 05/31/24 15:38 X1 PRN seizure Losartan Potassium 100 mg 05/26/24 09:00 05/27/24 08:33 Losartan Potassium 25 Mg Tablet PO 06/25/24 08:59 100 mg QDAY JAQUELIN Administration Metoprolol Succinate 50 mg 05/26/24 09:00 05/27/24 08:34 Metoprolol Succinate Xl 25 Mg Tabcr PO 06/25/24 08:59 50 mg BID JAQUELIN Administration Ondansetron HCl 4 mg 05/22/24 17:25 Ondansetron Inj 2 Mg/Ml Inj 2 Ml IV 06/21/24 17:24 Q4HR PRN NAUSEA OR VOMITING Plan 88-year-old male with a past medical history of hypertension, CAD s/p stent x 2, diabetes mellitus not on insulin, acoustic neuroma, and BPH who presented to the ED with acute encephalopathy and was sedated and intubated for combativeness and admitted to ICU for further management on 05/22. Extubated on 05/24. 05/25 patient was downgraded to internal medicine team for further cardiac and pneumonia management. #Acute encephalopathy due to focal aware seizures #Stroke rule out Patient had episode of witnessed suspected seizure 05/26 followed by post-ictal state. Stroke alert was called, NIHHS Score was 17 but patient quickly recovered back to his normal baseline mentation AAO x 4. No history of seizures. Stroke less likely due to post-ictal state with quick return to baseline, no stroke seen on head CT. Head CTA unable to complete due to allergy. Echo, TSH, A1c on file. Lipid panel ordered. - PT, [employer] - MRI head ordered - EEG pending read - Aspirin statin - Neurology following: depakote - Seizure precautions #Acute hypoxic respiratory due to H Influenza Pneumonia CT imaging shows bilateral pneumnia. Leukocytosis resolved. Treated with Vancomycin and cefepime (05/22-05/23), Azithromycin 500 mg x3 days (05/23-05/25), Flagyl (05/22-05/25) and Ceftriaxone (05/23-05/26). Sputum culturew grew H Influenza sensitive to cefuroxime (05/26) which was discontinued due to it lowering seizure threshold. - Levofloxacin (05/27- - Wean O2 as needed #Hypertension -Losartan 100mg + Amlodipine 10mg + Metoprolol 50mg BID #Paroxysmal Afib with RVR, resolved Patient developed A-fib with RVR shortly after intubation. Diltiazem drip discontinued due to hypotension. Spontaneous conversion back to sinus rhythm. - Metoprolol 50mg BID - No anticoagulation at this time #CAD s/p stents Echo on 05/23 showed EF 55-60%, grade 1 diastolic dysfunction. RVSP 60 mmHg. Mild MR, AI, , moderate TR. -Continue statin #History of diabetes mellitus, A1c 8.9 -ISS #BPH - Continue home dutasteride Health Maintenance DVT prophylaxis: Heparin GI prophylaxis: Not needed Diet: Cardiac Lines: Peripheral IV Code status: Full code I have reviewed and discussed the patient's care with my attending, Dr. Angelo Isabel MD PGY-3
[2024-05-27] MEDS: ACETAMINOPHEN 325 MG TABLET 650 MG PO (16:15)
--- NOTE | 2024-05-27 23:11 | PD.VPROG1 ---
Telemedicine visit statement This visit was conducted with the use of interactive audio and video telecommunications system that permits real time communication between the patient and the provider. Patient's verbal consent for virtual visit was obtained on 05/27/24 at 2311. Documentation for date of: 05/27/24 Virtual exam Vital Signs Temp Pulse Resp BP Pulse Ox O2 Del Method O2 Flow Rate 97.9 F 79 17 164/84 H 95 Room Air 2 05/27/24 20:00 05/27/24 21:11 05/27/24 20:00 05/27/24 21:11 05/27/24 20:00 05/27/24 20:00 05/27/24 04:00 FiO2 30 05/27/24 00:00 Objective Labs 05/27/24 04:41 05/27/24 04:41 Labs: Laboratory Results - last 24 hr 05/27/24 04:41 WBC 9.6 RBC 4.58 Hgb 14.4 Hct 41.4 MCV 90 MCH 31.4 MCHC 34.8 RDW Std Deviation 43.9 Plt Count 209 Neut % (Auto) 57 Lymph % (Auto) 23 [place] % (Auto) 10 Eos % (Auto) 7 Baso % (Auto) 1 Neut # (Auto) 5.5 Lymph # (Auto) 2.2 [place] # (Auto) 1.0 H Eos # (Auto) 0.7 H Baso # (Auto) 0.1 Immature Gran # (Auto) 0.18 H Absolute Nucleated RBC 0.00 Immature Gran % 2 H Nucleated RBC % 0 Sodium 139 Potassium 3.4 Chloride 98 Carbon Dioxide 29.5 Anion Gap 12 BUN 16 Creatinine 1.0 Estim Creat Clear Calc 47.0 L eGFR > 60 BUN/Creatinine Ratio 16 Glucose 190 H Calculated Osmolality 283 Calcium 9.2 Corrected Calcium 9.2 Phosphorus 2.5 Magnesium 2.0 Total Bilirubin 0.9 AST 51 H ALT 27 Alkaline Phosphatase 71 Total Protein 6.8 Albumin 4.2 Globulin 2.6 Albumin/Globulin Ratio 1.6 ABG Interpretation ABG results: 05/22/24 05/23/24 19:52 08:22 ABG pH 7.39 7.38 ABG pCO2 40 44 ABG pO2 141 H 93 D ABG HCO3 24 26 ABG O2 Saturation 100 H 98 ABG Base Excess -1 1
[2024-05-28] VITALS (13 sets, daily range): BP systolic 116–163; BP diastolic 61–93; PULSE 63–95; RESP 16–96; TEMP 36.2–37; O2SAT 94–98; BMI 23.3
--- NOTE | 2024-05-28 | XR_ITS ---
Examinations: MRI Brain without intravenous contrast. MRA brain without intravenous contrast. MRA carotids without intravenous contrast 3-D vascular reconstructions Date and time of exam: May 28, 2024 1205 hrs. Indications: New onset seizures beginning May 26, 2024, CT stroke alert brain scan at that time Technique: Multiple axial and sagittal images of the brain have been obtained MRA brain carotid images without contrast obtained, including 3-D postprocessing, vascular maximum intensity projection images Findings: [place] is not enlarged. The optic chiasm and infundibular stalk are not remarkable. Prepontine and interpeduncular cisterns are not enlarged. No localized enlargement of the medulla or laura. Fourth ventricle and cerebellar tonsils normal in position. Subacute hemorrhage is not seen. Fourth ventricle is midline. Mass in the cerebellopontine angle region is not evident. 7th and 8th nerve complexes exhibits symmetry. Globes are symmetrical with no retro-orbital mass. 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 MRA carotid images no significant carotid stenoses. 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
[2024-05-28 05:47] LABS: Basophils # (Auto) 0.1 Thou/mm3 (0.0-0.2); Basophils % (Auto) 1 % (0-2.5); Eosinophils # (Auto) 0.6 Thou/mm3 (0.0-0.5); Eosinophils % (Auto) 8 % (0-10); Hematocrit 39.2 % (41.0-53.0); Hemoglobin 13.6 g/dL (13.5-16.0); Immature Granulocytes % (Auto) 5 % (0-0); Lymphocytes # (Auto) 2.5 Thou/mm3 (1.0-4.8); Lymphocytes % (Auto) 33 % (10-50); Mean Corpuscular HGB Conc 34.7 g/dl (31.0-37.0); Mean Corpuscular Hemoglobin 31.1 pg (25.0-35.0); Mean Corpuscular Volume 90 fL (80-100); Monocytes # (Auto) 0.9 Thou/mm3 (0.0-0.8); Monocytes % (Auto) 12 % (0-12); Neutrophils % (Auto) 41 % (37-80); Nucleated Red Blood Cell % 0 /100 WBC (0); Platelet Count 219 Thou/mm3 (140-440); RDW Standard Deviation 43.8 fL (35.1-43.9); Red Blood Count 4.38 Miln/mm3 (4.50-5.90); White Blood Count 7.5 Thou/mm3 (3.8-10.6)
[2024-05-28 06:03] LABS: Alanine Aminotransferase 44 U/L (10-49); Albumin, Serum 3.7 gm/dL (3.4-4.8); Albumin/Globulin Ratio 1.5 (1.2-2.2); Alkaline Phosphatase 57 U/L (46-116); Anion Gap 11 (7-16); Aspartate Amino Transferase 81 U/L (0-34); BUN/Creatinine Ratio 21 Ratio (12-20); Bilirubin,Total 0.9 mg/dL (0.3-1.2); Blood Urea Nitrogen 21 mg/dL (9-23); Calcium (Corrected) 9.2 mg/dL (8.5-10.1); Carbon Dioxide 29.5 mMol/L (20.0-31.0); Cardiac Risk Estimate 3.9 RATIO (4.0-6.7); Chloride 99 mMol/L (98-107); Cholesterol 124 mg/dL (132-200); Globulin 2.4 gm/dL (2.3-3.5); Glucose 162 mg/dL (74-106); HDL Cholesterol 32 mg/dL (40-60); LDL Cholesterol,Calculated 64 mg/dL (0-130); Magnesium 1.8 mg/dL (1.6-2.6); Osmolality,Calculated 284 (275-295); Potassium 3.3 mMol/L (3.4-5.1); Sodium 139 mMol/L (136-145); Total Protein 6.1 gm/dL (5.7-8.2); Triglycerides 140 mg/dL (30-150); eGFR > 60 See Note
--- NOTE | 2024-05-28 06:31 | PC.NURSE ---
Dr. Marino notified and he said he will put an order in for meds.
[2024-05-28] MEDS: INSULIN LISPRO (AdmeLOG) 1 UNIT/0.01 ML UNIT SC ×4 (07:28→20:24)
[2024-05-28] MEDS: POTASSIUM CHLORIDE 10% 20 MEQ/15 ML UDC 40 MEQ PO (07:42)
[2024-05-28] MEDS: Magnesium Sulfate 2 GM Ivpb 2 GM/50 ML BAG IV (07:43)
--- NOTE | 2024-05-28 09:14 | PC.SS ---
SS follow up note; SS attempted to contact patients sonDemario in regards to Discharge plan. Dr. Isabel reported that patient is altered and could not discharge home alone. SS left VM for son with contact number.
[2024-05-28] MEDS: amLODIPine BESYLATE 5 MG TABLET 10 MG PO (09:16)
[2024-05-28] MEDS: ASPIRIN EC 81 MG TABEC PO (09:18)
[2024-05-28] MEDS: DUTASTERIDE 0.5 MG CAPSULE (NON-FORMULARY) PO (09:19)
[2024-05-28] MEDS: ATORVASTATIN CALCIUM 10 MG TABLET PO (09:19)
[2024-05-28] MEDS: DIVALPROEX SOD 125 MG SPRINKLE 750 MG PO ×2 (09:21→20:24)
[2024-05-28] MEDS: LOSARTAN POTASSIUM 25 MG TABLET 100 MG PO (09:23)
[2024-05-28] MEDS: METOPROLOL SUCCINATE XL 25 MG TABCR 50 MG PO ×2 (09:26→20:24)
[2024-05-28] MEDS: HEPARIN SOD INJ 5000 UNIT/ML VIAL SC ×2 (09:27→20:24)
--- NOTE | 2024-05-28 09:43 | PC.NURSE ---
Pt has 1:1 sitter therefore tele-sitter monitoring has been D/C
--- NOTE | 2024-05-28 09:58 | PCS.ST ---
A new ST order was received. Pt already in the caseload. See Swallow Tx Note.
--- NOTE | 2024-05-28 10:32 | PD.RESPRO ---
Documentation for date of: 05/28/24 Subjective Subjective Interval history: No overnight events. Patient seen and examined at bedside. Patient resting comfortably, baseline mental status. Denies chest pain, shortness of breath, orthopnea, palpitations. Denies further episodes of AMS/inability to respond. Lab significant for hemoglobin 13.6, sodium 139, potassium 3.3, BUN 21, creatinine 1.0, GFR greater than 60, glucose 162, magnesium 1.8. Keep potassium greater than 4, magnesium greater than 2. Repleted by primary team. LDL 64. Blood pressure remains elevated, recommend increasing metoprolol to 150. -on Metoprolol XL 50mg BID can increase to 150 mg once daily if HR is high. -Recommend initiating Eliquis 5 mg p.o. twice daily for AC Exam Vital Signs Temp Pulse Resp BP Pulse Ox O2 Del Method O2 Flow Rate 98.6 F 77 18 148/93 H 98 Room Air 2 05/28/24 08:00 05/28/24 09:26 05/28/24 08:00 05/28/24 09:26 05/28/24 08:00 05/28/24 08:00 05/27/24 04:00 FiO2 30 05/27/24 00:00 Narrative Exam Constitutional: Elderly male, awake, alert, interactive. HEENT: NCAT. Vision grossly intact. Respiratory: Decreased breath sounds bilaterally Cardiac: Regular rate and rhythm, no murmurs. Abdomen: Soft, non-distended, non-tender. MSK: No B/L LE edema. Skin: Warm, dry, intact. Small abrasion to left cheek. Neuro: Motor and sensation grossly intact. AO&O x 4 Objective Labs 05/28/24 04:55 05/28/24 04:55 Labs: Laboratory Results - last 24 hr 05/28/24 04:55 WBC 7.5 RBC 4.38 L Hgb 13.6 Hct 39.2 L MCV 90 MCH 31.1 MCHC 34.7 RDW Std Deviation 43.8 Plt Count 219 Neut % (Auto) 41 Lymph % (Auto) 33 [place] % (Auto) 12 Eos % (Auto) 8 Baso % (Auto) 1 Neut # (Auto) 3.0 Lymph # (Auto) 2.5 [place] # (Auto) 0.9 H Eos # (Auto) 0.6 H Baso # (Auto) 0.1 Immature Gran # (Auto) 0.40 H Absolute Nucleated RBC 0.00 Immature Gran % 5 H Nucleated RBC % 0 Sodium 139 Potassium 3.3 L Chloride 99 Carbon Dioxide 29.5 Anion Gap 11 BUN 21 Creatinine 1.0 Estim Creat Clear Calc 47.0 L eGFR > 60 BUN/Creatinine Ratio 21 H Glucose 162 H Calculated Osmolality 284 Calcium 9.0 Corrected Calcium 9.2 Phosphorus 3.0 Magnesium 1.8 Total Bilirubin 0.9 AST 81 H ALT 44 Alkaline Phosphatase 57 Total Protein 6.1 Albumin 3.7 D Globulin 2.4 Albumin/Globulin Ratio 1.5 Triglycerides 140 Cholesterol 124 L LDL Cholesterol, Calc 64 HDL Cholesterol 32 L Cholesterol/HDL Ratio 3.9 L ABG Interpretation ABG results: 05/22/24 05/23/24 19:52 08:22 ABG pH 7.39 7.38 ABG pCO2 40 44 ABG pO2 141 H 93 D ABG HCO3 24 26 ABG O2 Saturation 100 H 98 ABG Base Excess -1 1 Quality Measures Quality Measures VTE prophylaxis and sepsis Current suspected stage: sepsis Possible source: pulmonary Blood cultures ordered: yes Antibiotic ordered: Yes Advance care planning discussed with:: patient Assessment & Plan Assessment Current Active Medications: Generic Name Dose Route Start Last Admin Trade Name Freq PRN Reason Stop Dose Admin Acetaminophen 650 mg 05/25/24 00:19 05/27/24 16:15 Acetaminophen 325 Mg Tablet PO 06/21/24 21:34 650 mg Q6H PRN Administration Fever >101.5, or pain 1-4 Amlodipine Besylate 10 mg 05/27/24 09:00 05/28/24 09:16 Amlodipine Besylate 5 Mg Tablet PO 06/26/24 08:59 10 mg QDAY JAQUELIN Administration Aspirin 81 mg 05/26/24 16:45 05/28/24 09:18 Aspirin Ec 81 Mg Tabec PO 06/25/24 16:44 81 mg QDAY JAQUELIN Administration Atorvastatin Calcium 10 mg 05/24/24 15:00 05/28/24 09:19 Atorvastatin Calcium 10 Mg Tablet PO 06/23/24 14:59 10 mg QDAY JAQUELIN Administration Dextrose 25 ml 05/22/24 21:35 Dextrose 50%-Water Inj 50 Ml Syringe IV 06/21/24 21:34 Q15MIN PRN BG 50-70 responsive npo pt Dextrose 50 ml 05/22/24 21:35 Dextrose 50%-Water Inj 50 Ml Syringe IV 06/21/24 21:34 Q15MIN PRN BG <50 OR BG <70 & pt unresponsive Divalproex Sodium 750 mg 05/27/24 09:00 05/28/24 09:21 Divalproex Sod 125 Mg Sprinkle PO 06/26/24 08:59 750 mg BID JAQUELIN Administration Dutasteride 0.5 mg 05/24/24 15:00 05/28/24 09:19 Dutasteride 0.5 Mg Capsule (Non-Formulary) PO 06/23/24 14:59 0.5 mg QDAY JAQUELIN Administration Glucagon 1 mg 05/22/24 21:35 Glucagon Inj 1 Mg Vial IM Q15MIN PRN BG <70, and no IV access Heparin Sodium (Porcine) 5,000 unit 05/24/24 10:30 05/28/24 09:27 Heparin Sod Inj 5000 Unit/Ml Vial SC 06/07/24 10:29 5,000 unit BID JAQUELIN Administration Levofloxacin/Dextrose 750 mg in 150 mls @ 150 mls/hr 05/27/24 09:00 05/27/24 08:34 Levaquin Ivpb IV 06/03/24 08:59 150 mls/hr QDAY JAQUELIN Administration Insulin Human Lispro 0 unit 05/24/24 21:00 05/28/24 07:28 Insulin Lispro (Admelog) 1 Unit/0.01 Ml Unit SC 06/23/24 20:59 1 unit ACHS JAQUELIN Administration Protocol Lorazepam 2 mg 05/26/24 15:39 Lorazepam 2 Mg/Ml Vial IVP 05/31/24 15:38 X1 PRN seizure Losartan Potassium 100 mg 05/26/24 09:00 05/28/24 09:23 Losartan Potassium 25 Mg Tablet PO 06/25/24 08:59 100 mg QDAY JAQUELIN Administration Metoprolol Succinate 50 mg 05/26/24 09:00 05/28/24 09:26 Metoprolol Succinate Xl 25 Mg Tabcr PO 06/25/24 08:59 50 mg BID JAQUELIN Administration Ondansetron HCl 4 mg 05/22/24 17:25 Ondansetron Inj 2 Mg/Ml Inj 2 Ml IV 06/21/24 17:24 Q4HR PRN NAUSEA OR VOMITING Plan 88-year-old male with a past medical history of hypertension, CAD s/p stent x 2, diabetes mellitus not on insulin, acoustic neuroma, and BPH who presented to the ED with acute encephalopathy and was sedated and intubated for combativeness and admitted to ICU for further management on 05/22. Extubated on 05/24. 05/25 patient was downgraded to internal medicine team for further cardiac and pneumonia management. #Focal awareness seizure with postictal state Patient was found to have elevated blood pressure, SBP up to 190, obtunded, with rigid neck and flaccid extremities. Patient had CT head which is unremarkable, teleneuro consulted. Patient has no known history of seizures. Patient experienced on pain his recovery, A&O x 4, appropriately following commands. Patient expressed recollection of events while attended. Patient had recently been started on cefuroxime, changed to levofloxacin. Suspect seizure with postictal state. Patient resting comfortably, back to baseline mental status. Endorses recollection of events while attended. EEG was taken, however was unable to be read due to artifact, recommended repeat EEG. Brain MRI showed no acute infarct. -Aspirin 81 mg p.o. daily -Seizure precautions -Elevate head of bed 30 degrees -Aspiration precautions -Depakote 750 mg p.o. twice daily #Paroxysmal Afib with RVR, resolved Patient developed A-fib with RVR shortly after intubation. Patient was starting diltiazem drip, however it was discontinued due to soft BP. However patient spontaneously converted back to sinus rhythm. Likely related to underlying sepsis and process of intubation. Patient has remained sinus rhythm since first episode resolved. [id number] score: 5 points Has bled score: 2 -on Metoprolol XL 50mg BID can increase to 150 mg once daily if HR is high. -Cardiac monitoring -Recommend initiating Eliquis 5 mg p.o. twice daily -Follow up with cardiology 1-2 weeks after discharge #Acute hypoxic respiratory due to H Influenza Pneumonia CT imaging shows bilateral pneumnia. Leukocytosis resolved. Treated with Vancomycin and cefepime (05/22-05/23), Azithromycin 500 mg x3 days (05/23-05/25), Flagyl (05/22-05/25) and Ceftriaxone (05/23-05/26). Sputum culturew grew H Influenza. Antibiotics changed to cefuroxime, levofloxacin due to decreased seizure threshold from cefuroxime. -Levofloxacin -Wean O2 as needed #Hypertension Home meds: Olmesartan 40 mg daily and amlodipine 5 mg. Patient blood pressures remain elevated despite therapy, can increase metoprolol to 150 mg twice daily. -Losartan 100mg + Amlodipine 10mg + Metoprolol 50mg BID #Acute encephalopathy, metabolic vs infectious; resolved Patient presented with acute encephalopathy, likely due to underlying sepsis. Patient quired intubation for airway protection due to low GCS, was treated in ICU for 2 days. Patient effectively extubated and downgraded to floors, A&Ox4, follow commands appropriately. -Delirium precautions -Treat underlying factors as above #CAD s/p stents Echo on 05/23 showed EF 55-60%, grade 1 diastolic dysfunction. RVSP 60 mmHg. Mild MR, AI, , moderate TR. -Continue statin #History of diabetes mellitus A1c 8.9% -ISS #BPH -Continue home dutasteride DVT prophylaxis: Heparin GI prophylaxis: Not needed Diet: Cardiac Lines: Peripheral IV Code status: Full code Plan of care discussed with attending Dr. Castro. Priyank Ellis MD PGY?1 Attending Provider Attestation/Addendum I have personally seen and examined the patient separately on the above date of service and discussed the plan of care with the resident. I reviewed the resident Dr. Priyank Ellis consultation progress note and agree with the resident findings and plan in the note above and have also edited the documentation to reflect my findings and plan. Leo Castro M.D. Interventional Cardiology
[2024-05-28] MEDS: LEVOFLOXACIN/D5W 750MG IVPB 750 MG/150 ML BAG 150 MG IV (10:36)
--- NOTE | 2024-05-28 11:58 | ESPR_ITS ---
<Statement entered by Shakira Isabel MD - 05/28/24 14:36> I discussed with and supervised my co-resident involved in the care of this patient. I agree with the assessment and plan as documented above. Patient seen at bedside. Friend at bedside. No acute complaints this morning. No new seizures. On depkaote. EEG may need to be repeated due to artifacts. Continues to see words on wall. Pending MRI today and neuro recommendations. Explained to family at bedside patient may benefit from SNF or to ensure he stays on his medications given his multiple comorbidities. Patient does not want to go to SNF. Shakira Isabel MD PGY-3 Documentation for date of: 05/28/24 Subjective Subjective Interval history: Patient examined at bedside. He is AOx3 but cannot recall the seizure event. Conversating comfortably. Overnight team repleted potassium with 40 mEq and mag 2 g. Potassium was 3.3, Mg 1.8. All other labs stable. Okay to increase MP dose if permissible. Will continue to monitor BP for possible adjust for tx of Afib. Further neurology recs are pending. Will continue with divalproex 750BID for now. MRI head pending. No hallucinations. Exam Vital Signs Temp Pulse Resp BP Pulse Ox O2 Del Method O2 Flow Rate 98.6 F 70 18 148/93 H 98 Room Air 2 05/28/24 08:00 05/28/24 11:57 05/28/24 08:00 05/28/24 09:26 05/28/24 08:00 05/28/24 08:00 05/27/24 04:00 FiO2 30 05/27/24 00:00 Narrative Exam Constitutional: Elderly male, awake, interactive. HEENT: NCAT. Vision grossly intact. Very hard of hearing. Respiratory: no air movement heard, not taking deep enough breaths Cardiac: Regular rate and rhythm, no murmurs. Abdomen: Soft, non-distended, non-tender. MSK: No B/L LE edema. Skin: Warm, dry, intact, purupra UE Neuro: Motor and sensation grossly intact. Psych: appropriate affect Objective Labs 05/28/24 04:55 05/28/24 04:55 Labs: Laboratory Results - last 24 hr 05/28/24 04:55 WBC 7.5 RBC 4.38 L Hgb 13.6 Hct 39.2 L MCV 90 MCH 31.1 MCHC 34.7 RDW Std Deviation 43.8 Plt Count 219 Neut % (Auto) 41 Lymph % (Auto) 33 [place] % (Auto) 12 Eos % (Auto) 8 Baso % (Auto) 1 Neut # (Auto) 3.0 Lymph # (Auto) 2.5 [place] # (Auto) 0.9 H Eos # (Auto) 0.6 H Baso # (Auto) 0.1 Immature Gran # (Auto) 0.40 H Absolute Nucleated RBC 0.00 Immature Gran % 5 H Nucleated RBC % 0 Sodium 139 Potassium 3.3 L Chloride 99 Carbon Dioxide 29.5 Anion Gap 11 BUN 21 Creatinine 1.0 Estim Creat Clear Calc 47.0 L eGFR > 60 BUN/Creatinine Ratio 21 H Glucose 162 H Calculated Osmolality 284 Calcium 9.0 Corrected Calcium 9.2 Phosphorus 3.0 Magnesium 1.8 Total Bilirubin 0.9 AST 81 H ALT 44 Alkaline Phosphatase 57 Total Protein 6.1 Albumin 3.7 D Globulin 2.4 Albumin/Globulin Ratio 1.5 Triglycerides 140 Cholesterol 124 L LDL Cholesterol, Calc 64 HDL Cholesterol 32 L Cholesterol/HDL Ratio 3.9 L ABG Interpretation ABG results: 05/22/24 05/23/24 19:52 08:22 ABG pH 7.39 7.38 ABG pCO2 40 44 ABG pO2 141 H 93 D ABG HCO3 24 26 ABG O2 Saturation 100 H 98 ABG Base Excess -1 1 Quality Measures Quality Measures VTE prophylaxis and sepsis Current suspected stage: ruled out Possible source: pulmonary Blood cultures ordered: yes Antibiotic ordered: Yes Advance care planning discussed with:: patient Assessment & Plan Assessment Current Active Medications: Generic Name Dose Route Start Last Admin Trade Name Freq PRN Reason Stop Dose Admin Acetaminophen 650 mg 05/25/24 00:19 05/27/24 16:15 Acetaminophen 325 Mg Tablet PO 06/21/24 21:34 650 mg Q6H PRN Administration Fever >101.5, or pain 1-4 Amlodipine Besylate 10 mg 05/27/24 09:00 05/28/24 09:16 Amlodipine Besylate 5 Mg Tablet PO 06/26/24 08:59 10 mg QDAY JAQUELIN Administration Aspirin 81 mg 05/26/24 16:45 05/28/24 09:18 Aspirin Ec 81 Mg Tabec PO 06/25/24 16:44 81 mg QDAY JAQUELIN Administration Atorvastatin Calcium 10 mg 05/24/24 15:00 05/28/24 09:19 Atorvastatin Calcium 10 Mg Tablet PO 06/23/24 14:59 10 mg QDAY JAQUELIN Administration Dextrose 25 ml 05/22/24 21:35 Dextrose 50%-Water Inj 50 Ml Syringe IV 06/21/24 21:34 Q15MIN PRN BG 50-70 responsive npo pt Dextrose 50 ml 05/22/24 21:35 Dextrose 50%-Water Inj 50 Ml Syringe IV 06/21/24 21:34 Q15MIN PRN BG <50 OR BG <70 & pt unresponsive Divalproex Sodium 750 mg 05/27/24 09:00 05/28/24 09:21 Divalproex Sod 125 Mg Sprinkle PO 06/26/24 08:59 750 mg BID JAQUELIN Administration Dutasteride 0.5 mg 05/24/24 15:00 05/28/24 09:19 Dutasteride 0.5 Mg Capsule (Non-Formulary) PO 06/23/24 14:59 0.5 mg QDAY JAQUELIN Administration Glucagon 1 mg 05/22/24 21:35 Glucagon Inj 1 Mg Vial IM Q15MIN PRN BG <70, and no IV access Heparin Sodium (Porcine) 5,000 unit 05/24/24 10:30 05/28/24 09:27 Heparin Sod Inj 5000 Unit/Ml Vial SC 06/07/24 10:29 5,000 unit BID JAQUELIN Administration Levofloxacin/Dextrose 750 mg in 150 mls @ 150 mls/hr 05/27/24 09:00 05/28/24 10:36 Levaquin Ivpb IV 06/03/24 08:59 150 mls/hr QDAY JAQUELIN Administration Insulin Human Lispro 0 unit 05/24/24 21:00 05/28/24 11:40 Insulin Lispro (Admelog) 1 Unit/0.01 Ml Unit SC 06/23/24 20:59 2 unit ACHS JAQUELIN Administration Protocol Lorazepam 2 mg 05/26/24 15:39 Lorazepam 2 Mg/Ml Vial IVP 05/31/24 15:38 X1 PRN seizure Losartan Potassium 100 mg 05/26/24 09:00 05/28/24 09:23 Losartan Potassium 25 Mg Tablet PO 06/25/24 08:59 100 mg QDAY JAQUELIN Administration Metoprolol Succinate 50 mg 05/26/24 09:00 05/28/24 09:26 Metoprolol Succinate Xl 25 Mg Tabcr PO 06/25/24 08:59 50 mg BID JAQUELIN Administration Ondansetron HCl 4 mg 05/22/24 17:25 Ondansetron Inj 2 Mg/Ml Inj 2 Ml IV 06/21/24 17:24 Q4HR PRN NAUSEA OR VOMITING Plan 88-year-old male with a past medical history of hypertension, CAD s/p stent x 2, diabetes mellitus not on insulin, acoustic neuroma, and BPH who presented to the ED with acute encephalopathy and was sedated and intubated for combativeness and admitted to ICU for further management on 05/22. Extubated on 05/24. 05/25 patient was downgraded to internal medicine team for further cardiac and pneumonia management. #Acute encephalopathy due to focal aware seizures #Stroke rule out Patient had episode of witnessed suspected seizure 05/26 followed by post-ictal state. Stroke alert was called, NIHHS Score was 17 but patient quickly recovered back to his normal baseline mentation AAO x 4. No history of seizures. Stroke less likely due to post-ictal state with quick return to baseline, no stroke seen on head CT. Head CTA unable to complete due to allergy. Echo, TSH, A1c on file. Lipid panel ordered. EEG read unsuccessful. Any artifacts noted on on testing. 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 - Aspirin/statin - Neurology following: depakote 750 BID - Seizure precautions #Acute hypoxic respiratory due to H Influenza Pneumonia CT imaging shows bilateral pneumnia. Leukocytosis resolved. Treated with Vancomycin and cefepime (05/22-05/23), Azithromycin 500 mg x3 days (05/23-05/25), Flagyl (05/22-05/25) and Ceftriaxone (05/23-05/26). Sputum culturew grew H Influenza sensitive to cefuroxime (05/26) which was discontinued due to it lowering seizure threshold. - Levofloxacin (05/27- - Wean O2 as needed #Hypertension -Losartan 100mg + Amlodipine 10mg + Metoprolol 50mg BID #Paroxysmal Afib with RVR, resolved Patient developed A-fib with RVR shortly after intubation. Diltiazem drip discontinued due to hypotension. Spontaneous conversion back to sinus rhythm. - Metoprolol 50mg BID - No anticoagulation at this time -Cardiology stated that patient can go up on metoprolol to 150 mg. #CAD s/p stents Echo on 05/23 showed EF 55-60%, grade 1 diastolic dysfunction. RVSP 60 mmHg. Mild MR, AI, , moderate TR. -Continue statin #History of diabetes mellitus, A1c 8.9 -ISS #BPH - Continue home dutasteride Health Maintenance DVT prophylaxis: Heparin GI prophylaxis: Not needed Diet: Cardiac Lines: Peripheral IV Code status: Full code I have reviewed and discussed the patient's care with my attending, Dr. Angelo Santos, PGY1
--- NOTE | 2024-05-28 13:56 | PD.RESPRO ---
Documentation for date of: 05/28/24 Subjective Subjective Interval history: Patient seen and examined today in [facility]. Patient currently is at baseline able to follow over commands. We will have to repeat the EEG because it was diet nondiagnostic due to patient movement. And patient today wanted out on his way to get an MRI. No seizures reported overnight or this morning. Exam Vital Signs Temp Pulse Resp BP Pulse Ox O2 Del Method O2 Flow Rate 98.6 F 70 18 148/93 H 98 Room Air 2 05/28/24 08:00 05/28/24 11:57 05/28/24 08:00 05/28/24 09:26 05/28/24 08:00 05/28/24 08:00 05/27/24 04:00 FiO2 30 05/27/24 00:00 Narrative Exam Constitutional: AOx3, able to speak full sentences HEENT: NC/AT, PERRLA, oral mucosa moist, neck supple CVS: RRR, S1-S2 present, no murmurs RESP: CTAB GI: non distended, non tender to palpation, NBS MSK: full ROM, no peripheral edema, peripheral pulses present Skin: warm and dry, no rashes NEURO:? ? MENTAL STATUS:?AAOx3 ? LANG/SPEECH: Fluent, intact naming, repetition & comprehension ? CRANIAL NERVES: ? II: Pupils equal and reactive, no RAPD,?normal visual field and fundus ? III, IV, : EOM intact, no gaze preference or deviation ? V: normal ? VII: no facial asymmetry ? VIII: normal hearing to speech ? MOTOR: 5/5 in both upper and lower extremities ? REFLEXES: 2/4 throughout,?bilateral flexor plantars ? SENSORY: Normal to touch, temperature & pin prick in all extremiteis ? COORD: Normal finger to nose and heel to connell, no tremor, no dysmetria Objective Labs 05/28/24 04:55 05/28/24 04:55 Labs: Laboratory Results - last 24 hr 05/28/24 04:55 WBC 7.5 RBC 4.38 L Hgb 13.6 Hct 39.2 L MCV 90 MCH 31.1 MCHC 34.7 RDW Std Deviation 43.8 Plt Count 219 Neut % (Auto) 41 Lymph % (Auto) 33 [place] % (Auto) 12 Eos % (Auto) 8 Baso % (Auto) 1 Neut # (Auto) 3.0 Lymph # (Auto) 2.5 [place] # (Auto) 0.9 H Eos # (Auto) 0.6 H Baso # (Auto) 0.1 Immature Gran # (Auto) 0.40 H Absolute Nucleated RBC 0.00 Immature Gran % 5 H Nucleated RBC % 0 Sodium 139 Potassium 3.3 L Chloride 99 Carbon Dioxide 29.5 Anion Gap 11 BUN 21 Creatinine 1.0 Estim Creat Clear Calc 47.0 L eGFR > 60 BUN/Creatinine Ratio 21 H Glucose 162 H Calculated Osmolality 284 Calcium 9.0 Corrected Calcium 9.2 Phosphorus 3.0 Magnesium 1.8 Total Bilirubin 0.9 AST 81 H ALT 44 Alkaline Phosphatase 57 Total Protein 6.1 Albumin 3.7 D Globulin 2.4 Albumin/Globulin Ratio 1.5 Triglycerides 140 Cholesterol 124 L LDL Cholesterol, Calc 64 HDL Cholesterol 32 L Cholesterol/HDL Ratio 3.9 L ABG Interpretation ABG results: 05/22/24 05/23/24 19:52 08:22 ABG pH 7.39 7.38 ABG pCO2 40 44 ABG pO2 141 H 93 D ABG HCO3 24 26 ABG O2 Saturation 100 H 98 ABG Base Excess -1 1 Quality Measures Quality Measures VTE prophylaxis and sepsis Current suspected stage: ruled out Possible source: pulmonary Blood cultures ordered: yes Antibiotic ordered: No Advance care planning discussed with:: other Assessment & Plan Assessment Current Active Medications: Generic Name Dose Route Start Last Admin Trade Name Freq PRN Reason Stop Dose Admin Acetaminophen 650 mg 05/25/24 00:19 05/27/24 16:15 Acetaminophen 325 Mg Tablet PO 06/21/24 21:34 650 mg Q6H PRN Administration Fever >101.5, or pain 1-4 Amlodipine Besylate 10 mg 05/27/24 09:00 05/28/24 09:16 Amlodipine Besylate 5 Mg Tablet PO 06/26/24 08:59 10 mg QDAY JAQUELIN Administration Aspirin 81 mg 05/26/24 16:45 05/28/24 09:18 Aspirin Ec 81 Mg Tabec PO 06/25/24 16:44 81 mg QDAY JAQUELIN Administration Atorvastatin Calcium 10 mg 05/24/24 15:00 05/28/24 09:19 Atorvastatin Calcium 10 Mg Tablet PO 06/23/24 14:59 10 mg QDAY JAQUELIN Administration Dextrose 25 ml 05/22/24 21:35 Dextrose 50%-Water Inj 50 Ml Syringe IV 06/21/24 21:34 Q15MIN PRN BG 50-70 responsive npo pt Dextrose 50 ml 05/22/24 21:35 Dextrose 50%-Water Inj 50 Ml Syringe IV 06/21/24 21:34 Q15MIN PRN BG <50 OR BG <70 & pt unresponsive Divalproex Sodium 750 mg 05/27/24 09:00 05/28/24 09:21 Divalproex Sod 125 Mg Sprinkle PO 06/26/24 08:59 750 mg BID JAQUELIN Administration Dutasteride 0.5 mg 05/24/24 15:00 05/28/24 09:19 Dutasteride 0.5 Mg Capsule (Non-Formulary) PO 06/23/24 14:59 0.5 mg QDAY JAQUELIN Administration Glucagon 1 mg 05/22/24 21:35 Glucagon Inj 1 Mg Vial IM Q15MIN PRN BG <70, and no IV access Heparin Sodium (Porcine) 5,000 unit 05/24/24 10:30 05/28/24 09:27 Heparin Sod Inj 5000 Unit/Ml Vial SC 06/07/24 10:29 5,000 unit BID JAQUELIN Administration Levofloxacin/Dextrose 750 mg in 150 mls @ 150 mls/hr 05/27/24 09:00 05/28/24 10:36 Levaquin Ivpb IV 06/03/24 08:59 150 mls/hr QDAY JAQUELIN Administration Insulin Human Lispro 0 unit 05/24/24 21:00 05/28/24 11:40 Insulin Lispro (Admelog) 1 Unit/0.01 Ml Unit SC 06/23/24 20:59 2 unit ACHS JAQUELIN Administration Protocol Lorazepam 2 mg 05/26/24 15:39 Lorazepam 2 Mg/Ml Vial IVP 05/31/24 15:38 X1 PRN seizure Losartan Potassium 100 mg 05/26/24 09:00 05/28/24 09:23 Losartan Potassium 25 Mg Tablet PO 06/25/24 08:59 100 mg QDAY JAQUELIN Administration Metoprolol Succinate 50 mg 05/26/24 09:00 05/28/24 09:26 Metoprolol Succinate Xl 25 Mg Tabcr PO 06/25/24 08:59 50 mg BID JAQUELIN Administration Ondansetron HCl 4 mg 05/22/24 17:25 Ondansetron Inj 2 Mg/Ml Inj 2 Ml IV 06/21/24 17:24 Q4HR PRN NAUSEA OR VOMITING Plan #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 Stroke alert was called, NIHHS Score was 17 but patient quickly recovered back to his normal baseline mentation AAO x 4. No history of seizures. Stroke less likely due to post-ictal state with quick return to baseline, no stroke seen on head CT. MR brain on 05/28/24 showed Negative for acute hemorrhage mass effect or midline shift. No acute infarct. 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 Pillo Hawkins MD Internal Medicine PGY-3 Attending Provider Attestation/Addendum I personally have seen and examined the patient with the resident at the bedside and I agree with the residents findings assessment and plan of care. Will continue with the Depakote, EEG needs to be repeated as an outpatient to evaluate further. MRI brain resulted negative for acute infarction, showed old infarct and moderate chronic white matter changes.
--- NOTE | 2024-05-28 22:43 | RESP.EEG ---
EEG COMPLETED AND READY FOR REVIEW.
[2024-05-29] VITALS (9 sets, daily range): BP systolic 142–160; BP diastolic 73–98; PULSE 62–97; RESP 16–95; TEMP 36.4–36.6; O2SAT 94–98
[2024-05-29 05:39] LABS: Basophils % (Auto) 1 % (0-2.5); Eosinophils # (Auto) 0.6 Thou/mm3 (0.0-0.5); Eosinophils % (Auto) 8 % (0-10); Hematocrit 37.8 % (41.0-53.0); Immature Granulocytes % (Auto) 6 % (0-0); Immature Granulocytes Auto 0.41 Thou/mm3 (0.00-0.00); Lymphocytes # (Auto) 2.3 Thou/mm3 (1.0-4.8); Lymphocytes % (Auto) 35 % (10-50); Mean Corpuscular HGB Conc 34.4 g/dl (31.0-37.0); Mean Corpuscular Hemoglobin 31.3 pg (25.0-35.0); Mean Corpuscular Volume 91 fL (80-100); Monocytes # (Auto) 0.7 Thou/mm3 (0.0-0.8); Monocytes % (Auto) 10 % (0-12); Neutrophils # (Auto) 2.6 Thou/mm3 (1.8-7.7); Neutrophils % (Auto) 39 % (37-80); Nucleated Red Blood Cell % 0 /100 WBC (0); Platelet Count 222 Thou/mm3 (140-440); RDW Standard Deviation 45.2 fL (35.1-43.9); Red Blood Count 4.15 Miln/mm3 (4.50-5.90); White Blood Count 6.6 Thou/mm3 (3.8-10.6)
[2024-05-29 07:17] LABS: Alanine Aminotransferase 37 U/L (10-49); Albumin, Serum 3.5 gm/dL (3.4-4.8); Albumin/Globulin Ratio 1.5 (1.2-2.2); Alkaline Phosphatase 52 U/L (46-116); Anion Gap 9 (7-16); Aspartate Amino Transferase 45 U/L (0-34); BUN/Creatinine Ratio 19 Ratio (12-20); Bilirubin,Total 0.7 mg/dL (0.3-1.2); Blood Urea Nitrogen 19 mg/dL (9-23); Calcium 8.9 mg/dL (8.3-10.6); Calcium (Corrected) 9.3 mg/dL (8.5-10.1); Carbon Dioxide 28.9 mMol/L (20.0-31.0); Chloride 102 mMol/L (98-107); Estimated Creatinine Clearance 75.1 mL/min (>60); Globulin 2.3 gm/dL (2.3-3.5); Glucose 168 mg/dL (74-106); Osmolality,Calculated 285 (275-295); Phosphorous 2.8 mg/dL (2.4-5.1); Potassium 4.1 mMol/L (3.4-5.1); Sodium 140 mMol/L (136-145); Total Protein 5.8 gm/dL (5.7-8.2); eGFR > 60 See Note
[2024-05-29] MEDS: INSULIN LISPRO (AdmeLOG) 1 UNIT/0.01 ML UNIT SC ×2 (07:38→11:09)
[2024-05-29] MEDS: ASPIRIN EC 81 MG TABEC PO (08:37)
[2024-05-29] MEDS: ATORVASTATIN CALCIUM 10 MG TABLET PO (08:38)
[2024-05-29] MEDS: LOSARTAN POTASSIUM 25 MG TABLET 100 MG PO (08:39)
[2024-05-29] MEDS: amLODIPine BESYLATE 5 MG TABLET 10 MG PO (08:41)
[2024-05-29] MEDS: DUTASTERIDE 0.5 MG CAPSULE (NON-FORMULARY) PO (08:44)
[2024-05-29] MEDS: METOPROLOL SUCCINATE XL 25 MG TABCR 50 MG PO (08:44)
[2024-05-29] MEDS: DIVALPROEX SOD 125 MG SPRINKLE 750 MG PO (08:45)
[2024-05-29] MEDS: HEPARIN SOD INJ 5000 UNIT/ML VIAL SC (08:48)
[2024-05-29] MEDS: LEVOFLOXACIN/D5W 750MG IVPB 750 MG/150 ML BAG 150 MG IV (08:53)
--- NOTE | 2024-05-29 10:42 | PC.SS ---
SAIL FINISHER HAND informed by PT staff that recommendation for patient is home with home health. In addition recommendation for patient to obtain a walker.
--- NOTE | 2024-05-29 10:43 | PC.SS ---
Update: Plan is to discharge the patient home today with home health services.
--- NOTE | 2024-05-29 10:44 | PC.SS ---
UNIT SECRETARY conducted bedside contact with patient to confirm discharge plan home. Patient confirmed plan. Patient resides at home with roommate, Andreia Paez; enabling the patient to not be alone at home upon discharge. Patient informed that home health being recommended. No preferred home health agency identified.
--- NOTE | 2024-05-29 10:46 | PC.SS ---
Walkers The diagnosis creates mobility limitation that significantly impairs ability to participate in the patients activities of daily living either in their entirety, or in a reasonable time frame. Also the patient is able to safely use the walker and the patient?s mobility is sufficiently resolved with the use of the walker and cane has been ruled out.
--- NOTE | 2024-05-29 10:59 | PD.RESPRO ---
Documentation for date of: 05/29/24 Subjective Subjective Interval history: No overnight events. Patient seen and examined at bedside. Patient resting comfortably, baseline mental status. Denies chest pain, shortness of breath, orthopnea, palpitations. Denies further episodes of AMS/inability to respond. Lab significant for hemoglobin 13.0, sodium 140, potassium 4.1, BUN 19, creatinine 1.0, GFR greater than 60, glucose 168, magnesium 2.0. Keep potassium greater than 4, magnesium greater than 2. Blood pressure remains elevated, recommend increasing metoprolol to 150. -on Metoprolol XL 50mg BID can increase to 150 mg once daily if HR is high. -Recommend initiating Eliquis 5 mg p.o. twice daily for AC Exam Vital Signs Temp Pulse Resp BP Pulse Ox O2 Del Method O2 Flow Rate 97.8 F 75 18 150/98 H 95 Room Air 2 05/29/24 07:26 05/29/24 08:44 05/29/24 08:17 05/29/24 08:44 05/29/24 07:26 05/29/24 07:26 05/27/24 04:00 FiO2 30 05/27/24 00:00 Narrative Exam Constitutional: Elderly male, awake, alert, interactive. HEENT: NCAT. Vision grossly intact. Respiratory: Decreased breath sounds bilaterally Cardiac: Regular rate and rhythm, no murmurs. Abdomen: Soft, non-distended, non-tender. MSK: No B/L LE edema. Skin: Warm, dry, intact. Small abrasion to left cheek. Neuro: Motor and sensation grossly intact. AO&O x 4 Objective Labs 05/29/24 04:30 05/29/24 04:30 Labs: Laboratory Results - last 24 hr 05/29/24 04:30 WBC 6.6 RBC 4.15 L Hgb 13.0 L Hct 37.8 L MCV 91 MCH 31.3 MCHC 34.4 RDW Std Deviation 45.2 H Plt Count 222 Neut % (Auto) 39 Lymph % (Auto) 35 [place] % (Auto) 10 Eos % (Auto) 8 Baso % (Auto) 1 Neut # (Auto) 2.6 Lymph # (Auto) 2.3 [place] # (Auto) 0.7 Eos # (Auto) 0.6 H Baso # (Auto) 0.0 Immature Gran # (Auto) 0.41 H Absolute Nucleated RBC 0.00 Immature Gran % 6 H Nucleated RBC % 0 Sodium 140 Potassium 4.1 D Chloride 102 Carbon Dioxide 28.9 Anion Gap 9 BUN 19 Creatinine 1.0 Estim Creat Clear Calc 75.1 eGFR > 60 BUN/Creatinine Ratio 19 Glucose 168 H Calculated Osmolality 285 Calcium 8.9 Corrected Calcium 9.3 Phosphorus 2.8 Magnesium 2.0 Total Bilirubin 0.7 AST 45 H ALT 37 Alkaline Phosphatase 52 Total Protein 5.8 Albumin 3.5 Globulin 2.3 Albumin/Globulin Ratio 1.5 ABG Interpretation ABG results: 05/22/24 05/23/24 19:52 08:22 ABG pH 7.39 7.38 ABG pCO2 40 44 ABG pO2 141 H 93 D ABG HCO3 24 26 ABG O2 Saturation 100 H 98 ABG Base Excess -1 1 Quality Measures Quality Measures VTE prophylaxis and sepsis Current suspected stage: sepsis Possible source: pulmonary Blood cultures ordered: yes Antibiotic ordered: Yes Advance care planning discussed with:: patient Assessment & Plan Assessment Current Active Medications: Generic Name Dose Route Start Last Admin Trade Name Freq PRN Reason Stop Dose Admin Acetaminophen 650 mg 05/25/24 00:19 05/27/24 16:15 Acetaminophen 325 Mg Tablet PO 06/21/24 21:34 650 mg Q6H PRN Administration Fever >101.5, or pain 1-4 Amlodipine Besylate 10 mg 05/27/24 09:00 05/29/24 08:41 Amlodipine Besylate 5 Mg Tablet PO 06/26/24 08:59 10 mg QDAY JAQUELIN Administration Aspirin 81 mg 05/26/24 16:45 05/29/24 08:37 Aspirin Ec 81 Mg Tabec PO 06/25/24 16:44 81 mg QDAY JAQUELIN Administration Atorvastatin Calcium 10 mg 05/24/24 15:00 05/29/24 08:38 Atorvastatin Calcium 10 Mg Tablet PO 06/23/24 14:59 10 mg QDAY JAQUELIN Administration Dextrose 25 ml 05/22/24 21:35 Dextrose 50%-Water Inj 50 Ml Syringe IV 06/21/24 21:34 Q15MIN PRN BG 50-70 responsive npo pt Dextrose 50 ml 05/22/24 21:35 Dextrose 50%-Water Inj 50 Ml Syringe IV 06/21/24 21:34 Q15MIN PRN BG <50 OR BG <70 & pt unresponsive Divalproex Sodium 750 mg 05/27/24 09:00 05/29/24 08:45 Divalproex Sod 125 Mg Sprinkle PO 06/26/24 08:59 750 mg BID JAQUELIN Administration Dutasteride 0.5 mg 05/24/24 15:00 05/29/24 08:44 Dutasteride 0.5 Mg Capsule (Non-Formulary) PO 06/23/24 14:59 0.5 mg QDAY JAQUELIN Administration Glucagon 1 mg 05/22/24 21:35 Glucagon Inj 1 Mg Vial IM Q15MIN PRN BG <70, and no IV access Heparin Sodium (Porcine) 5,000 unit 05/24/24 10:30 05/29/24 08:48 Heparin Sod Inj 5000 Unit/Ml Vial SC 06/07/24 10:29 5,000 unit BID JAQUELIN Administration Levofloxacin/Dextrose 750 mg in 150 mls @ 150 mls/hr 05/27/24 09:00 05/29/24 08:53 Levaquin Ivpb IV 06/03/24 08:59 150 mls/hr QDAY JAQUELIN Administration Insulin Human Lispro 0 unit 05/24/24 21:00 05/29/24 07:38 Insulin Lispro (Admelog) 1 Unit/0.01 Ml Unit SC 06/23/24 20:59 1 unit ACHS JAQUELIN Administration Protocol Lorazepam 2 mg 05/26/24 15:39 Lorazepam 2 Mg/Ml Vial IVP 05/31/24 15:38 X1 PRN seizure Losartan Potassium 100 mg 05/26/24 09:00 05/29/24 08:39 Losartan Potassium 25 Mg Tablet PO 06/25/24 08:59 100 mg QDAY JAQUELIN Administration Metoprolol Succinate 50 mg 05/26/24 09:00 05/29/24 08:44 Metoprolol Succinate Xl 25 Mg Tabcr PO 06/25/24 08:59 50 mg BID JAQUELIN Administration Ondansetron HCl 4 mg 05/22/24 17:25 Ondansetron Inj 2 Mg/Ml Inj 2 Ml IV 06/21/24 17:24 Q4HR PRN NAUSEA OR VOMITING Plan 88-year-old male with a past medical history of hypertension, CAD s/p stent x 2, diabetes mellitus not on insulin, acoustic neuroma, and BPH who presented to the ED with acute encephalopathy and was sedated and intubated for combativeness and admitted to ICU for further management on 05/22. Extubated on 05/24. 05/25 patient was downgraded to internal medicine team for further cardiac and pneumonia management. #Focal awareness seizure with postictal state Patient was found to have elevated blood pressure, SBP up to 190, obtunded, with rigid neck and flaccid extremities. Patient had CT head which is unremarkable, teleneuro consulted. Patient has no known history of seizures. Patient experienced on pain his recovery, A&O x 4, appropriately following commands. Patient expressed recollection of events while attended. Patient had recently been started on cefuroxime, changed to levofloxacin. Suspect seizure with postictal state. Patient resting comfortably, back to baseline mental status. Endorses recollection of events while attended. EEG was taken, however was unable to be read due to artifact, recommended repeat EEG. Brain MRI showed no acute infarct. -Aspirin 81 mg p.o. daily -Seizure precautions -Elevate head of bed 30 degrees -Aspiration precautions -Depakote 750 mg p.o. twice daily #Paroxysmal Afib with RVR, resolved Patient developed A-fib with RVR shortly after intubation. Patient was starting diltiazem drip, however it was discontinued due to soft BP. However patient spontaneously converted back to sinus rhythm. Likely related to underlying sepsis and process of intubation. Patient has remained sinus rhythm since first episode resolved. [id number] score: 5 points Has bled score: 2 -on Metoprolol XL 50mg BID can increase to 150 mg once daily if HR is high. -Cardiac monitoring -Recommend initiating Eliquis 5 mg p.o. twice daily -Follow up with cardiology 1-2 weeks after discharge #Acute hypoxic respiratory due to H Influenza Pneumonia CT imaging shows bilateral pneumnia. Leukocytosis resolved. Treated with Vancomycin and cefepime (05/22-05/23), Azithromycin 500 mg x3 days (05/23-05/25), Flagyl (05/22-05/25) and Ceftriaxone (05/23-05/26). Sputum culturew grew H Influenza. Antibiotics changed to cefuroxime, levofloxacin due to decreased seizure threshold from cefuroxime. -Levofloxacin -Wean O2 as needed #Hypertension Home meds: Olmesartan 40 mg daily and amlodipine 5 mg. Patient blood pressures remain elevated despite therapy, can increase metoprolol to 150 mg twice daily. -Losartan 100mg + Amlodipine 10mg + Metoprolol 50mg BID #Acute encephalopathy, metabolic vs infectious; resolved Patient presented with acute encephalopathy, likely due to underlying sepsis. Patient quired intubation for airway protection due to low GCS, was treated in ICU for 2 days. Patient effectively extubated and downgraded to floors, A&Ox4, follow commands appropriately. -Delirium precautions -Treat underlying factors as above #CAD s/p stents Echo on 05/23 showed EF 55-60%, grade 1 diastolic dysfunction. RVSP 60 mmHg. Mild MR, AI, , moderate TR. -Continue statin #History of diabetes mellitus A1c 8.9% -ISS #BPH -Continue home dutasteride DVT prophylaxis: Heparin GI prophylaxis: Not needed Diet: Cardiac Lines: Peripheral IV Code status: Full code Plan of care discussed with attending Dr. Castro. Priyank Ellis MD PGY?1 Attending Provider Attestation/Addendum I have personally seen and examined the patient separately on the above date of service and discussed the plan of care with the resident. I reviewed the resident Dr. Priyank Ellis consultation progress note and agree with the resident findings and plan in the note above and have also edited the documentation to reflect my findings and plan. Leo Castro M.D. Interventional Cardiology
--- NOTE | 2024-05-29 11:41 | PC.SS ---
DME referral submitted on [facility], [place]. Awaiting responses.
--- NOTE | 2024-05-29 12:06 | ESDS_ITS ---
Planned Discharge Date 05/29/24 DS: Providers Provider Date of admission: 05/22/24 21:35 Primary care physician: Luis Alberto Dietrich MD Admitting Provider: Mayo Cheek MD Attending Provider on Admission: Cristi Stephens MD Consults: 05/22/24 17:25 Consult to Neurology / Tele-Neurology Routine Comment: Consulting Provider: [facility] 05/24/24 13:07 Referral Speech Therapy Routine Comment: Formal swallow evaluation 05/25/24 14:13 Consult to Cardiology Routine Comment: afib rvr? Consulting Provider: Keerthi Seaman 05/26/24 11:47 PT [Referral Physical Therapy] Routine Comment: Physician Instructions: 05/26/24 15:42 Consult to Neurology / Tele-Neurology Routine Comment: Consulting Provider: Yunier Ferro 05/26/24 15:46 Consult to Neurology / Tele-Neurology Stat Comment: Consulting Provider: [facility] 05/27/24 10:41 PT [Referral Physical Therapy] Routine Comment: Physician Instructions: Attending Provider on DC: Simran Santos MD Discharging Provider: Simran Santos MD DS: Diagnosis Problem List Completed Was Problem List Reviewed/Reconciled?: Yes Hospital Course Hospital Course Hospital course: Reason for hospitalization: AMS, AHRF Max Geremias is 88 yr male with PMH of hypertension, CAD s/p stent x 2, diabetes mellitus not on insulin, acoustic neuroma, and BPH who presented to [facility] ED on 05/22/24 due to altered mental status. Family found patient acutely in this state. Upon arrival in the ED, patient was intubated for airway protection. He met SIRS 2/4 with lactic acid 4.9 source most likely pneumonia. Admitted to ICU for close monitoring and ventilation management with treatment of sepsis. CT head was negative for any acute hemorrhage or mass effect. CT chest abdomen pelvis showed bilateral pneumonia with possible aspiration. Sputum cultures were positive for haemophilus influenza, negative MRSA, negative UA, negative blood cultures at 48 hours. He was started on levofloxacin. Patient was successfully extubated on 05/24. Regulatory Compliance Engineer Dr. Seaman was consulted after he was found to be in A-fib with RVR. He was started on metoprolol 50 mg BID. During hospitalization, patient had a rapid response event due to new onset focal seizure. On physical exam, patient was obtunded, staring blankly at ceiling with eyes flickering back and forth, rigid neck but flaccid extremities. Neurologist Dr. Ferro was consulted and patient was started on Depakote 750 mg twice daily. MRI head was negative for any acute findings. EEG read is pending. Patient is now in stable condition and ready for discharge. Recommendations were given as below. Discharge Recommendations: Continue taking divalproex 750 mg twice a day for your seizure. Continue levofloxacin 750 mg for 7 more days for treatment of your pneumonia. Continue taking metoprolol succinate 50 mg daily for your paroxysmal atrial fibrillation. Follow-up with your neurologist in 1-2 weeks. Follow-up with your PCP in 1-2 weeks. Hospital Diagnoses: #Acute encephalopathy due to focal aware seizures #Stroke rule out #Acute hypoxic respiratory due to H Influenza Pneumonia #Hypertension #Paroxysmal Afib with RVR, resolved #CAD s/p stents #History of diabetes mellitus, A1c 8.9 #BPH The patient's management plan was discussed with my attending physician Dr. Stephens. Simran Santos MD, PGY-1 Time Spent with Patient Time attestation: Total time spent providing and/or coordinating discharge services: Time spent: Greater than 30 minutes Exam Vital Signs Temp Pulse Resp BP Pulse Ox O2 Del Method O2 Flow Rate 97.8 F 64 16 142/73 H 95 Room Air 2 05/29/24 11:36 05/29/24 11:36 05/29/24 11:36 05/29/24 11:36 05/29/24 11:36 05/29/24 11:36 05/27/24 04:00 FiO2 30 05/27/24 00:00 Narrative Exam Constitutional: Elderly male, awake, interactive. HEENT: NCAT. Vision grossly intact. Very hard of hearing. Respiratory: no air movement heard, not taking deep enough breaths Cardiac: Regular rate and rhythm, no murmurs. Abdomen: Soft, non-distended, non-tender. MSK: No B/L LE edema. Skin: Warm, dry, intact, purupra UE Neuro: Motor and sensation grossly intact. Psych: appropriate affect Discharge Plan Plan Patient Disposition: Home w/HOME HEALTH Patient condition on transfer: Stable Prescriptions/Referrals Prescriptions/Med Rec: New aspirin [Ecotrin Low Strength] 81 mg Tablet,Delayed Release (Dr/Ec) 81 mg PO QDAY Qty: 30 0RF losartan 25 mg Tablet 100 mg PO QDAY Qty: 30 0RF divalproex 125 mg Capsule, Delayed Rel Sprinkle 750 mg PO BID Qty: 60 0RF levofloxacin 750 mg tablet 750 mg PO QDAY 7 Days Qty: 7 0RF Continued atorvastatin [Lipitor] 10 MG tablet 10 mg PO QDAY Qty: 0 gabapentin [Neurontin] 300 MG capsule 300 mg PO TID Qty: 0 amlodipine [Norvasc] 5 mg Tablet 5 mg PO QDAY dutasteride [Avodart] 0.5 mg Capsule 0.5 mg PO QDAY metoprolol succinate 50 mg Capsule,Sprinkle,Er 24hr 50 mg PO QDAY fluticasone propionate 50 mcg/actuation spray,suspension 1 spray intranasal DAILY Patient Comments: SHAKE LQ AND U 1 SPR IEN QD No Action metformin [Glucophage] 500 MG tablet 500 mg PO TID Qty: 0 olmesartan [Benicar] 40 mg Tablet 40 mg PO QDAY finasteride 5 mg Tablet 5 mg PO QDAY Qty: 30 0RF tamsulosin 0.4 mg Capsule 0.4 mg PO QDAY Qty: 30 0RF Referrals: Luis Alberto Dietrich MD [Primary Care Provider] - Yunier Ferro MD [Physician] - Patient/Caregiver Discharge Instructions Other Discharge Activity Instructions:: Continue taking divalproex 750 mg twice a day for your seizure. Continue levofloxacin 750 mg for 7 more days for treatment of your pneumonia. Continue taking metoprolol succinate 50 mg daily for your paroxysmal atrial fibrillation. Follow-up with your neurologist in 1-2 weeks. Follow-up with your PCP in 1-2 weeks. Education Materials: Causes of Syncope, Diagnosing Syncope Print Language: [place] Stand Alone Forms: Kaci Award Info., Patient Portal Info Letter Discharge Order Discharge Orders: Discharge (Routine); Ordered 05/29/24 Ordered By: Shakira Isabel Quality Discharge Quality Measures VTE prophylaxis
--- NOTE | 2024-05-29 14:02 | PD.RESPRO ---
Documentation for date of: 05/29/24 Subjective Subjective Interval history: Patient seen and examined today in [facility]. Patient currently is at baseline able to follow over commands. No seizures reported overnight or this morning. Exam Vital Signs Temp Pulse Resp BP Pulse Ox O2 Del Method O2 Flow Rate 97.8 F 64 16 142/73 H 95 Room Air 2 05/29/24 11:36 05/29/24 11:36 05/29/24 11:36 05/29/24 11:36 05/29/24 11:36 05/29/24 11:36 05/27/24 04:00 FiO2 30 05/27/24 00:00 Narrative Exam Constitutional: AOx3, able to speak full sentences HEENT: NC/AT, PERRLA, oral mucosa moist, neck supple CVS: RRR, S1-S2 present, no murmurs RESP: CTAB GI: non distended, non tender to palpation, NBS MSK: full ROM, no peripheral edema, peripheral pulses present Skin: warm and dry, no rashes NEURO:? ? MENTAL STATUS:?AAOx3 ? LANG/SPEECH: Fluent, intact naming, repetition & comprehension ? CRANIAL NERVES: ? II: Pupils equal and reactive, no RAPD,?normal visual field and fundus ? III, IV, : EOM intact, no gaze preference or deviation ? V: normal ? VII: no facial asymmetry ? VIII: normal hearing to speech ? MOTOR: 5/5 in both upper and lower extremities ? REFLEXES: 2/4 throughout,?bilateral flexor plantars ? SENSORY: Normal to touch, temperature & pin prick in all extremiteis ? COORD: Normal finger to nose and heel to connell, no tremor, no dysmetria Objective Labs 05/29/24 04:30 05/29/24 04:30 Labs: Laboratory Results - last 24 hr 05/29/24 04:30 WBC 6.6 RBC 4.15 L Hgb 13.0 L Hct 37.8 L MCV 91 MCH 31.3 MCHC 34.4 RDW Std Deviation 45.2 H Plt Count 222 Neut % (Auto) 39 Lymph % (Auto) 35 [place] % (Auto) 10 Eos % (Auto) 8 Baso % (Auto) 1 Neut # (Auto) 2.6 Lymph # (Auto) 2.3 [place] # (Auto) 0.7 Eos # (Auto) 0.6 H Baso # (Auto) 0.0 Immature Gran # (Auto) 0.41 H Absolute Nucleated RBC 0.00 Immature Gran % 6 H Nucleated RBC % 0 Sodium 140 Potassium 4.1 D Chloride 102 Carbon Dioxide 28.9 Anion Gap 9 BUN 19 Creatinine 1.0 Estim Creat Clear Calc 75.1 eGFR > 60 BUN/Creatinine Ratio 19 Glucose 168 H Calculated Osmolality 285 Calcium 8.9 Corrected Calcium 9.3 Phosphorus 2.8 Magnesium 2.0 Total Bilirubin 0.7 AST 45 H ALT 37 Alkaline Phosphatase 52 Total Protein 5.8 Albumin 3.5 Globulin 2.3 Albumin/Globulin Ratio 1.5 ABG Interpretation ABG results: 05/22/24 05/23/24 19:52 08:22 ABG pH 7.39 7.38 ABG pCO2 40 44 ABG pO2 141 H 93 D ABG HCO3 24 26 ABG O2 Saturation 100 H 98 ABG Base Excess -1 1 Quality Measures Quality Measures VTE prophylaxis and sepsis Current suspected stage: ruled out Possible source: pulmonary Blood cultures ordered: yes Antibiotic ordered: Yes Advance care planning discussed with:: other Assessment & Plan Assessment Current Active Medications: Generic Name Dose Route Start Last Admin Trade Name Freq PRN Reason Stop Dose Admin Acetaminophen 650 mg 05/25/24 00:19 05/27/24 16:15 Acetaminophen 325 Mg Tablet PO 06/21/24 21:34 650 mg Q6H PRN Administration Fever >101.5, or pain 1-4 Amlodipine Besylate 10 mg 05/27/24 09:00 05/29/24 08:41 Amlodipine Besylate 5 Mg Tablet PO 06/26/24 08:59 10 mg QDAY JAQUELIN Administration Aspirin 81 mg 05/26/24 16:45 05/29/24 08:37 Aspirin Ec 81 Mg Tabec PO 06/25/24 16:44 81 mg QDAY JAQUELIN Administration Atorvastatin Calcium 10 mg 05/24/24 15:00 05/29/24 08:38 Atorvastatin Calcium 10 Mg Tablet PO 06/23/24 14:59 10 mg QDAY JAQUELIN Administration Dextrose 25 ml 05/22/24 21:35 Dextrose 50%-Water Inj 50 Ml Syringe IV 06/21/24 21:34 Q15MIN PRN BG 50-70 responsive npo pt Dextrose 50 ml 05/22/24 21:35 Dextrose 50%-Water Inj 50 Ml Syringe IV 06/21/24 21:34 Q15MIN PRN BG <50 OR BG <70 & pt unresponsive Divalproex Sodium 750 mg 05/27/24 09:00 05/29/24 08:45 Divalproex Sod 125 Mg Sprinkle PO 06/26/24 08:59 750 mg BID JAQUELIN Administration Dutasteride 0.5 mg 05/24/24 15:00 05/29/24 08:44 Dutasteride 0.5 Mg Capsule (Non-Formulary) PO 06/23/24 14:59 0.5 mg QDAY JAQUELIN Administration Glucagon 1 mg 05/22/24 21:35 Glucagon Inj 1 Mg Vial IM Q15MIN PRN BG <70, and no IV access Heparin Sodium (Porcine) 5,000 unit 05/24/24 10:30 05/29/24 08:48 Heparin Sod Inj 5000 Unit/Ml Vial SC 06/07/24 10:29 5,000 unit BID JAQUELIN Administration Levofloxacin/Dextrose 750 mg in 150 mls @ 150 mls/hr 05/27/24 09:00 05/29/24 08:53 Levaquin Ivpb IV 06/03/24 08:59 150 mls/hr QDAY JAQUELIN Administration Insulin Human Lispro 0 unit 05/24/24 21:00 05/29/24 11:09 Insulin Lispro (Admelog) 1 Unit/0.01 Ml Unit SC 06/23/24 20:59 2 unit ACHS JAQUELIN Administration Protocol Lorazepam 2 mg 05/26/24 15:39 Lorazepam 2 Mg/Ml Vial IVP 05/31/24 15:38 X1 PRN seizure Losartan Potassium 100 mg 05/26/24 09:00 05/29/24 08:39 Losartan Potassium 25 Mg Tablet PO 06/25/24 08:59 100 mg QDAY JAQUELIN Administration Metoprolol Succinate 50 mg 05/26/24 09:00 05/29/24 08:44 Metoprolol Succinate Xl 25 Mg Tabcr PO 06/25/24 08:59 50 mg BID JAQUELIN Administration Ondansetron HCl 4 mg 05/22/24 17:25 Ondansetron Inj 2 Mg/Ml Inj 2 Ml IV 06/21/24 17:24 Q4HR PRN NAUSEA OR VOMITING Plan #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 Stroke alert was called, NIHHS Score was 17 but patient quickly recovered back to his normal baseline mentation AAO x 4. No history of seizures. Stroke less likely due to post-ictal state with quick return to baseline, no stroke seen on head CT. MR brain on 05/28/24 showed Negative for acute hemorrhage mass effect or midline shift. No acute infarct. 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 change. Moderate cerebral arterial irregularity Recommendations: - PT, FUEL BUYER - cont Aspirin/statin - ASM: depakote 750 BID - Seizure precautions - Ok to be discharge from a neurology standpoint, follow up [address] Ferro clinic. - Patient's care was discussed with my attending physician, Dr. Pillo Hawkins MD Internal Medicine PGY-3 Attending Provider Attestation/Addendum I have reviewed the patient's chart and I agree with resident's findings, assessment and plan of care. MRI brain showed old infarct in the left basal ganglia and moderate chronic white matter changes and moderate cerebral arterial irregularity. Patient is advised to continue with the Depakote 750 mg twice a day with close monitoring of his liver enzymes. Will see him back in 1 to 2 weeks. No driving advised.
[2024-05-30 06:53] LABS: Vitamin B1 (Thiamine)* 14 nmol/L (8-30)
--- NOTE | 2024-05-30 09:41 | PC.CM ---
Addendum entered by Mila Wong RN 05/30/24 17:45: Dr. Stephens had not put home health orders at this time. I called and Dr. Isabel to please remind him to put in the orders. Original Note: Patient had discharge disposition home with home health. I did not see an order for home health from Dr. Stephens. I called him and asked if he could put in his order.
--- NOTE | 2024-05-31 09:38 | PC.CC ---
Addendum entered by Nj Monge RN 05/31/24 18:33: Got HH orders. HH referral sent on [facility]. Awaiting responses. Pending start of care date. Original Note: called and informed Dr. Stephens need HH orders.
== END 2024-05-29 14:38 | disposition home health service (06) | DRG 871 ==
LOC: SERX 21:43 → SERHOLD 05-23 06:14 → S2SX 05-23 07:35 → S3NX 05-25 18:10 → S3SX 05-29 07:24
PROVIDERS: Registered Nurse General Practice; Student in an Organized Health Care Education/Training Program; Admitting Provider Internal Medicine; Emergency Provider Emergency Medicine; PCP Family Medicine; Visit Provider Internal Medicine
DX: A41.9 Sepsis, unspecified organism (principal); J14 Pneumonia due to Hemophilus influenzae; J96.01 Acute respiratory failure with hypoxia; R65.21 Severe sepsis with septic shock; E87.20 Acidosis, unspecified; I16.1 Hypertensive emergency; H91.90 Unspecified hearing loss, unspecified ear; E11.22 Type 2 diabetes mellitus with diabetic chronic kidney disease; G40.909 Epilepsy, unspecified, not intractable, without status epilepticus; N40.0 Benign prostatic hyperplasia without lower urinary tract symptoms; I48.0 Paroxysmal atrial fibrillation; I12.9 Hypertensive chronic kidney disease with stage 1 through stage 4 chronic kidney disease, or unspecified chronic kidney disease; I25.10 Atherosclerotic heart disease of native coronary artery without angina pectoris; D33.3 Benign neoplasm of cranial nerves; R79.82 Elevated C-reactive protein (CRP); N18.2 Chronic kidney disease, stage 2 (mild); E78.00 Pure hypercholesterolemia, unspecified; E83.42 Hypomagnesemia; D64.9 Anemia, unspecified; Z88.0 Allergy status to penicillin; I35.8 Other nonrheumatic aortic valve disorders; Z95.5 Presence of coronary angioplasty implant and graft; Z79.84 Long term (current) use of oral hypoglycemic drugs; Z79.899 Other long term (current) drug therapy; Z79.82 Long term (current) use of aspirin; Z86.73 Personal history of transient ischemic attack (TIA), and cerebral infarction without residual deficits
CPT/HCPCS: 36415; 36600; 70450; 70544; 71045; 71250; 74176; 80053; 80061; 80202; 80307; 81001; 82140; 82607; 82803; 83036; 83605; 83735; 84100; 84145; 84425; 84439; 84443; 84484; 84703; 85025; 85610; 85652; 85730; 86140; 86331; 86635; 86780; 87040; 87077; 87081; 87086; 87184; 87205; 87449; 87811; 92526; 92610; 93005; 93225; 93306; 94002; 94003; 95816; 96361; 96365; 96366; 96367; 96368; 96375; 97162; 99291; A4216; J0692; J0696; J1643; J1815; J1956; J2060; J2251; J2470; J2704; J3010; J3370; J3475; J3490; J7030; J7050; J7120; A9270; J1836

== ENCOUNTER 2024-06-07 15:32 | Emergency (ER) | payer MEDICARE, BC, SELFPAY ==
[2024-06-07 15:33] VITALS: BMI 24.3
[2024-06-07 15:51] VITALS: BP 125/60; PULSE 77; RESP 18; TEMP 36.7; O2SAT 99
--- NOTE | 2024-06-07 16:05 | XR_ITS ---
Examination: PA lateral chest 2 views Technique: Upright PA lateral chest 2 views Exam date and time: June 07, 2024 1627 hrs. Comparison May 22, 2024 Indications: Shortness of breath anxiety attack beginning 5 days ago. Findings: Normal heart size No pneumonia or pulmonary edema Right shoulder calcific tendinitis Impression: No pneumonia or pulmonary edema
--- NOTE | 2024-06-07 16:05 | EKG_ITS ---
[facility] Test Date: 2024-06-07 Pat Name: DONALD MAYERS Department: Room: - Gender: Male Lpn Per Diem: : 1935 Requested By: Dev Prasad (NUVIA) Order Number: [id number] Reading MD: Dev Prasad (MANAGER DEVELOPMENT) Measurements Intervals [place] Rate: 76 P: 73 [place]: 157 QRS: 76 QRSD: 90 T: 65 QT: 362 QTc: 408 Interpretive Statements SINUS RHYTHM Compared to ECG 05/22/2024 18:46:19 Atrial fibrillation no longer present T-wave abnormality no longer present /store/S0/[id number]/ecg/[id number].pdf
--- NOTE | 2024-06-07 16:05 | PD.EDRME ---
Rapid Medical Screening Exam RME Arrival date/time: 06/07/24 15:32 88-year-old male with recent admission to hospital presents emerged department complaints of anxiety and heartburn Chief Complaint: Anxiety Vital signs: Vital Signs Temperature 98.1 F 06/07/24 15:51 Pulse Rate 77 06/07/24 15:51 Respiratory Rate 18 06/07/24 15:51 Blood Pressure 125/60 06/07/24 15:51 Pulse Oximetry (%) 99 06/07/24 15:51 Oxygen Delivery Method Room Air 06/07/24 15:51
[2024-06-07] MEDS: METOCLOPRAMIDE 5 MG TABLET 10 MG PO (16:35)
[2024-06-07 16:43] LABS: Collection Type, Urine Clean Catch
[2024-06-07 16:49] LABS: Bilirubin,Urine Negative (Negative); Blood,Urine Negative (Negative); Clarity,Urine Clear (Clear/Hazy); Color,Urine Yellow (Lt Yel-Yel); Glucose, Urine Trace (Negative); Ketones,Urine 1+ (Negative); Leukocyte Esterase,Urine Negative (Negative); Nitrite,Urine Negative (Negative); PH,Urine 5.5 (5.0-7.0); Protein,Urine 1+ (Neg - Trace); RBC,Urine 2 /hpf (0-3); Specific Gravity,Urine 1.033 (1.001-1.035); Squamous Epithelial Cell,Urine < 1 /hpf (0-5); Urobilinogen,Urine Negative mg/dL (0.0-1.0); WBC,Urine 2 /hpf (0-5)
[2024-06-07 17:02] LABS: Basophils # (Auto) 0.2 Thou/mm3 (0.0-0.2); Basophils % (Auto) 1 % (0-2.5); Eosinophils # (Auto) 0.4 Thou/mm3 (0.0-0.5); Eosinophils % (Auto) 3 % (0-10); Hematocrit 41.4 % (41.0-53.0); Hemoglobin 14.2 g/dL (13.5-16.0); Immature Granulocytes % (Auto) 3 % (0-0); Immature Granulocytes Auto 0.34 Thou/mm3 (0.00-0.00); Lymphocytes % (Auto) 26 % (10-50); Mean Corpuscular HGB Conc 34.3 g/dl (31.0-37.0); Mean Corpuscular Hemoglobin 31.9 pg (25.0-35.0); Mean Corpuscular Volume 93 fL (80-100); Monocytes # (Auto) 1.3 Thou/mm3 (0.0-0.8); Monocytes % (Auto) 11 % (0-12); Neutrophils # (Auto) 6.6 Thou/mm3 (1.8-7.7); Neutrophils % (Auto) 56 % (37-80); Nucleated Red Blood Cell % 0 /100 WBC (0); Platelet Count 289 Thou/mm3 (140-440); RDW Standard Deviation 46.8 fL (35.1-43.9); Red Blood Count 4.45 Miln/mm3 (4.50-5.90); White Blood Count 11.8 Thou/mm3 (3.8-10.6)
[2024-06-07 17:20] LABS: INR 1.1 (0.9-1.3); Partial Thromboplastin Time 27.3 Seconds (22.0-36.0); Prothrombin Time 11.9 Seconds (9.0-12.2)
[2024-06-07 17:24] LABS: B-Type Natriuretic Peptide 40 pg/mL (0-100)
[2024-06-07 17:25] LABS: Alanine Aminotransferase 31 U/L (10-49); Albumin, Serum 4.1 gm/dL (3.4-4.8); Albumin/Globulin Ratio 1.6 (1.2-2.2); Alkaline Phosphatase 55 U/L (46-116); Anion Gap 9 (7-16); Aspartate Amino Transferase 33 U/L (0-34); BUN/Creatinine Ratio 14 Ratio (12-20); Bilirubin,Total 0.5 mg/dL (0.3-1.2); Blood Urea Nitrogen 20 mg/dL (9-23); Calcium 9.4 mg/dL (8.3-10.6); Calcium (Corrected) 9.4 mg/dL (8.5-10.1); Carbon Dioxide 28.5 mMol/L (20.0-31.0); Chloride 98 mMol/L (98-107); Creatinine (Component) 1.4 mg/dL (0.6-1.3); Estimated Creatinine Clearance 34.8 mL/min (>60); Globulin 2.6 gm/dL (2.3-3.5); Glucose 162 mg/dL (74-106); Lipase 76 U/L (12-53); Magnesium 1.5 mg/dL (1.6-2.6); Osmolality,Calculated 276 (275-295); Potassium 5.1 mMol/L (3.4-5.1); Sodium 135 mMol/L (136-145); Total Protein 6.7 gm/dL (5.7-8.2); Troponin I < 0.020 ng/mL (0.0-0.045); eGFR 49 See Note
--- NOTE | 2024-06-07 19:11 | PD.EDADULT ---
ED General RME/HPI General Chief complaint: Anxiety Stated complaint: abdominal pain, anxiety, unable to sleep Time Seen by Provider: 06/07/24 18:19 Arrival date/time: 06/07/24 15:32 RME / HPI RME / HPI narrative: Patient is 88 years old male with past medical history of hypertension, CAD s/p stent x 2, diabetes mellitus not on insulin, acoustic neuroma, and BPH presented to the ED complaining of anxiety and epigastric pain. Patient reports taking 2 tablets of naproxen daily for hip pain and is scheduled for orthopedic consult next week. He usually takes this medication before he goes to the bed at night. He reports anxiety since he was discharged from ICU admission recently. He denies any shortness of breath, fever, chills, weakness, blood per rectum or melena. He also reports feeling nauseous but denies vomiting. He does not take other pain medications. Related Data Home Medications ?Medication ?Instructions ?Recorded ?Confirmed atorvastatin 10 mg tablet (Lipitor) 10 mg PO QDAY #0 tabs 02/28/16 05/22/24 gabapentin 300 mg capsule 300 mg PO TID ##0 02/28/16 05/22/24 (Neurontin) metformin 500 mg tablet 500 mg PO TID #0 tabs 02/28/16 05/22/24 (Glucophage) amlodipine 5 mg tablet (Norvasc) 5 mg PO QDAY 03/15/19 05/22/24 dutasteride 0.5 mg capsule 0.5 mg PO QDAY 03/15/19 05/22/24 (Avodart) metoprolol succinate 50 mg capsule 50 mg PO QDAY 03/15/19 05/22/24 sprinkle, ext. release 24 hr olmesartan 40 mg tablet (Benicar) 40 mg PO QDAY 03/15/19 05/22/24 fluticasone propionate 50 1 spray intranasal DAILY 07/19/19 05/22/24 mcg/actuation nasal spray,suspension Previous Rx's ?Medication ?Instructions ?Recorded finasteride 5 mg tablet 5 mg PO QDAY #30 tabs 07/20/19 tamsulosin 0.4 mg capsule 0.4 mg PO QDAY #30 caps 07/20/19 aspirin 81 mg tablet,delayed 81 mg PO QDAY #30 tabs 05/29/24 release (Ecotrin Low Strength) divalproex 125 mg capsule,delayed 750 mg (6 x 125 mg) PO BID #60 caps 05/29/24 release sprinkle losartan 25 mg tablet 100 mg (4 x 25 mg) PO QDAY #30 tabs 05/29/24 magnesium 200 mg tablet 200 mg PO QDAY #30 tabs 06/07/24 pantoprazole 40 mg tablet,delayed 40 mg PO QDAY #30 tabs 06/07/24 release Allergies Allergy/AdvReac Type Severity Reaction Status Date / Time Penicillins Allergy Severe HIVES, RASH Verified 07/18/19 18:40 shellfish derived Allergy Intermediate Swelling Verified 07/18/19 18:40 Iodine and Iodide Containing AdvReac Severe Vomiting, Verified 07/18/19 18:40 Produc SWELLING Review of Systems Review of Systems Systems Reviewed: All systems reviewed, normal except as documented ED Exam Narrative Physical exam: Gen: Well-developed and well-nourished elderly male. HEENT: NCAT, PERRLA, EOMI, MMM, anicteric conjunctivae. CVS: normal S1 and S2. RRR. No M/R/G. Resp: CTA B/L. No rhonchi, rales, crackles or wheezing. Abd: soft, non-tender, non-distended. BS+ in all 4 quadrants. MSK: Good ROM in BUE & BLE. No edema or rash. Neuro: CN II-XII grossly intact. Strength 5/5 in BUE & BLE. Alert and oriented x3. Psych: Appears tired. Course Quality Measures none Orders Category Date Time Status EKG (ED ONLY) *Do not use* NOW Care 06/07/24 16:05 Completed EKG (ED Only) Stat Exams 06/07/24 16:05 Draft XR chest 2V Stat Exams 06/07/24 16:05 Completed B-Type Natriuretic Peptide Stat Lab 06/07/24 16:48 Completed CBC Stat Lab 06/07/24 16:48 Completed Comprehensive Metabolic Panel Stat Lab 06/07/24 16:48 Completed Lipase Stat Lab 06/07/24 16:48 Completed Magnesium Stat Lab 06/07/24 16:48 Completed Partial Thromboplastin Time Stat Lab 06/07/24 16:48 Completed Prothrombin Time with INR Stat Lab 06/07/24 16:48 Completed Troponin I Stat Lab 06/07/24 16:48 Completed Urinalysis Stat Lab 06/07/24 16:30 Completed Metoclopramide [Reglan] Med 06/07/24 16:05 Discontinued 10 mg PO X1 ONE Vital Signs Vital signs: Vital Signs Temperature 98.1 F 06/07/24 15:51 Pulse Rate 77 06/07/24 15:51 Respiratory Rate 18 06/07/24 15:51 Blood Pressure 125/60 06/07/24 15:51 Pulse Oximetry (%) 99 06/07/24 15:51 Oxygen Delivery Method Room Air 06/07/24 15:51 Procedures -ED EKG Interpretation Sinus rhythm: Date of EK06/07/24 Time of EK:24 Rate: 76 Interpretation: Reviewed by me EKG Impression: Normal sinus rhythm MDM Patient data External records reviewed:: [facility] previous records Clinical information provided by:: patient and family Social determinants that could affect healthcare access:: none Patient has the following chronic illnesses:: hypertension, CAD s/p stent x 2, diabetes mellitus not on insulin, acoustic neuroma, and BPH How is presenting disease/condition affected by chronic disease/condition?: uneffected by Evaluation data The following diagnostics were reviewed and interpreted by me:: lab results, radiology exam(s) and EKG tracing(s) Lab and/or radiology exams considered but not ordered:: CTAP Interpretation Summary: SEGUNDO Medications Medications considered but not ordered:: IVF Medication administrations:: Medication Administration History Discontinued Medications Metoclopramide HCl (Metoclopramide 5 Mg Tablet) 10 mg PO X1 ONE Stop: 06/07/24 16:06 Last Admin: 06/07/24 16:35 Dose: 10 mg Documented By: Metoclopramide 5 mg PO. Consultations Consultation(s) initiated? (list below): No Diagnosis Differential Diagnosis ED Complaint MDM: NSAIDs induced gastritis, GERD, ACS, hiatal hernia. Most likely diagnosis given after review of the tests above:: NSAIDs induced gastritis and/or GERD. Admission Indicated Admission indicated?: not indicated Explain why admission is indicated or not indicated:: Patient presented with stable vital signs. His labs showed normal hemoglobin level and creatinine 1.4 consistent with SEGUNDO, likely due to NSAIDs use. Patient denies blood per rectum or melena. Admission Request Was there a request for admission?: No Disposition Plan Disposition Plan: Discharge Discharge Attestation Discharge Attestation: The patient and all family members were given an opportunity to ask questions and understood the discharge instructions. Discharge instructions specifically effects, indications for sooner follow up or return to the emergency department, and the expected course of current diagnosis. Patient condition: Stable Medical Decision Making MDM Narrative MDM Narrative: Patient presented with stable vital signs complaining of epigastric pain, heartburn and anxiety. He is taking naproxen 2 tablets daily before he goes to sleep for hip pain which is likely the cause of his epigastric pain and heartburn. Workup for other conditions like ACS or pneumonia was negative. His hemoglobin was stable. Labs showed creatinine 1.4 consistent with SEGUNDO likely induced by NSAID use and hypomagnesemia. Patient was offered anxiety medication but denies. He was explained that anxiety after ICU admission is common and he will need to discuss it with his PCP. He was recommended to stop using any NSAIDs and use Tylenol for pain. He will need to follow-up with his PCP to reconcile home medications. He was prescribed pantoprazole and magnesium. Patient can be safely discharged. Differential Diagnosis Differential Diagnosis: NSAIDs induced gastritis, GERD, ACS, hiatal hernia. Lab Data 06/07/24 16:48 06/07/24 16:48 Labs: Lab Results 06/07/24 06/07/24 Range/Units 16:30 16:48 WBC 11.8 H (3.8-10.6) Thou/mm3 RBC 4.45 L (4.50-5.90) Miln/mm3 Hgb 14.2 (13.5-16.0) g/dL Hct 41.4 (41.0-53.0) % MCV 93 (80-100) fL MCH 31.9 (25.0-35.0) pg MCHC 34.3 (31.0-37.0) g/dl RDW Std Deviation 46.8 H (35.1-43.9) fL Plt Count 289 D (140-440) Thou/mm3 Neut % (Auto) 56 (37-80) % Lymph % (Auto) 26 (10-50) % [place] % (Auto) 11 (0-12) % Eos % (Auto) 3 (0-10) % Baso % (Auto) 1 (0-2.5) % Neut # (Auto) 6.6 (1.8-7.7) Thou/mm3 Lymph # (Auto) 3.0 (1.0-4.8) Thou/mm3 [place] # (Auto) 1.3 H (0.0-0.8) Thou/mm3 Eos # (Auto) 0.4 (0.0-0.5) Thou/mm3 Baso # (Auto) 0.2 (0.0-0.2) Thou/mm3 Immature Gran # (Auto) 0.34 H (0.00-0.00) Thou/mm3 Absolute Nucleated RBC 0.00 (0.00-0.00) Thou/mm3 Immature Gran % 3 H (0-0) % Nucleated RBC % 0 (0) /100 WBC PT 11.9 (9.0-12.2) Seconds INR 1.1 (0.9-1.3) APTT 27.3 (22.0-36.0) Seconds Sodium 135 L (136-145) mMol/L Potassium 5.1 (3.4-5.1) mMol/L Chloride 98 (98-107) mMol/L Carbon Dioxide 28.5 (20.0-31.0) mMol/L Anion Gap 9 (7-16) BUN 20 (9-23) mg/dL Creatinine 1.4 H (0.6-1.3) mg/dL Estim Creat Clear Calc 34.8 L (>60) mL/min eGFR 49 L (60 - ) See Note BUN/Creatinine Ratio 14 (12-20) Ratio Glucose 162 H (74-106) mg/dL Calculated Osmolality 276 (275-295) Calcium 9.4 (8.3-10.6) mg/dL Corrected Calcium 9.4 (8.5-10.1) mg/dL Magnesium 1.5 L (1.6-2.6) mg/dL Total Bilirubin 0.5 (0.3-1.2) mg/dL AST 33 (0-34) U/L ALT 31 (10-49) U/L Alkaline Phosphatase 55 (46-116) U/L Troponin I < 0.020 (0.0-0.045) ng/mL B-Natriuretic Peptide 40 (0-100) pg/mL Total Protein 6.7 (5.7-8.2) gm/dL Albumin 4.1 (3.4-4.8) gm/dL Globulin 2.6 (2.3-3.5) gm/dL Albumin/Globulin Ratio 1.6 (1.2-2.2) Lipase 76 H (12-53) U/L Ur Collection Type Clean Catch Urine Color Yellow (Lt Yel-Yel) Urine Clarity Clear (Clear/Hazy) Urine pH 5.5 (5.0-7.0) Ur Specific Remer 1.033 (1.001-1.035) Urine Protein 1+ A (Neg - Trace) Urine Glucose (UA) Trace (Negative) Urine Ketones 1+ A (Negative) Urine Blood Negative (Negative) Urine Nitrite Negative (Negative) Urine Bilirubin Negative (Negative) Urine Urobilinogen (Auto) Negative (0.0-1.0) mg/dL Ur Leukocyte Esterase Negative (Negative) Urine RBC 2 (0-3) /hpf Urine WBC 2 (0-5) /hpf Ur Squamous Epith Cells < 1 (0-5) /hpf Urine Bacteria None (None) Discharge Plan Plan Patient Disposition: HOME (Self Care) Prescriptions/Referrals Prescriptions/Med Rec: New pantoprazole 40 mg tablet,delayed release (DR/EC) 40 mg PO QDAY Qty: 30 0RF magnesium 200 mg tablet 200 mg PO QDAY Qty: 30 0RF No Action metformin [Glucophage] 500 MG tablet 500 mg PO TID Qty: 0 atorvastatin [Lipitor] 10 MG tablet 10 mg PO QDAY Qty: 0 gabapentin [Neurontin] 300 MG capsule 300 mg PO TID Qty: 0 amlodipine [Norvasc] 5 mg Tablet 5 mg PO QDAY olmesartan [Benicar] 40 mg Tablet 40 mg PO QDAY dutasteride [Avodart] 0.5 mg Capsule 0.5 mg PO QDAY metoprolol succinate 50 mg Capsule,Sprinkle,Er 24hr 50 mg PO QDAY fluticasone propionate 50 mcg/actuation spray,suspension 1 spray intranasal DAILY Patient Comments: SHAKE LQ AND U 1 SPR IEN QD finasteride 5 mg Tablet 5 mg PO QDAY Qty: 30 0RF tamsulosin 0.4 mg Capsule 0.4 mg PO QDAY Qty: 30 0RF aspirin [Ecotrin Low Strength] 81 mg Tablet,Delayed Release (Dr/Ec) 81 mg PO QDAY Qty: 30 0RF losartan 25 mg Tablet 100 mg PO QDAY Qty: 30 0RF divalproex 125 mg Capsule, Delayed Rel Sprinkle 750 mg PO BID Qty: 60 0RF Referrals: No Primary/Family,Physician [Primary Care Provider] - In 1 week Problem List Clinical Impression: Acute anxiety, Chest pain due to GERD, NSAID induced gastritis Patient/Caregiver Discharge Instructions Education Materials: ED GERD (Adult) Additional Instructions: After evaluation, you have NSAIDs induced gastritis and GERD. Start taking Pantoprazole 40 mg daily in the morning. Start taking magnesium 1 tab daily. Stop taking Aleve and other NSAIDs (naproxen, ibuprofen and etc). Take Tylenol for pain instead. Follow up with PCP on 06/11/24, call to make an appointment. Repeat blood magnesium level and CBC. Ask to review home medications. Drink more fluids daily. Print Language: Salvadorean Stand Alone Forms: [employer] Award Info., Patient Portal Info Letter
== END 2024-06-07 19:31 | disposition home or self-care (01) ==
PROVIDERS: Emergency Provider Nurse Practitioner Primary Care
DX: K29.70 Gastritis, unspecified, without bleeding (principal); K21.9 Gastro-esophageal reflux disease without esophagitis; F41.9 Anxiety disorder, unspecified; R06.02 Shortness of breath; T39.395A Adverse effect of other nonsteroidal anti-inflammatory drugs [NSAID], initial encounter; I10 Essential (primary) hypertension; I25.10 Atherosclerotic heart disease of native coronary artery without angina pectoris; Z95.5 Presence of coronary angioplasty implant and graft
CPT/HCPCS: 36415; 71046; 80053; 81001; 83690; 83735; 83880; 84484; 85025; 85610; 85730; 93005; 99283; A9270

== ENCOUNTER 2025-01-28 19:28 | Emergency (ER) | payer MEDICARE, BC, SELFPAY ==
[2025-01-28 19:39] VITALS: BP 162/85; PULSE 90; RESP 18; TEMP 36.4; O2SAT 98
--- NOTE | 2025-01-28 19:52 | XR_ITS ---
Examination: CT brain head without contrast. 2-D sagittal coronal reconstructions Date and time of exam: January 28, 2025, 2044 hours, comparison May 26, 2024 INDICATIONS: Patient fell today with injury to the head, head pain neck pain CTDI: vol (mGy): 50.3 DLP: (mGycm): 942 Technique: Multiple CT axial sections of the brain have been obtained, 5 mm slice thickness. Contrast has not been administered. 2-D sagittal, coronal reconstructions have been obtained Low dose protocols were performed. One or more of the following dose reduction techniques were used; automated exposure control, adjustment of the mA and/or KV according to patient size, use of iterative reconstruction technique. Findings: No significant ventricular enlargement. Small old infarct left basal ganglia Intra-axial or extra-axial hemorrhage density is not seen. No mass effect or midline shift Basal cisterns are not remarkable. Fourth ventricle is midline. Cranial vault intact. Impression: Negative for acute hemorrhage, mass effect or midline shift
--- NOTE | 2025-01-28 19:52 | XR_ITS ---
Examination: CT cervical spine without contrast 2-D sagittal reconstructions 2-D coronal reconstructions 3-D reconstructions. Exam date and time: January 28, 2025, 2044 hours INDICATIONS: Ground-level fall today with injury to the neck, neck pain CTDI:vol (mGy) 14.7 DLP: (mGycm) 281 Technique: Multiple 2 mm axial sections of the cervical spine have been obtained. The coronal and sagittal reconstructions have been obtained. 3-D reconstructions have been obtained. Low dose protocols were performed. One or more of the following dose reduction techniques were used; automated exposure control, adjustment of the mA and/or KV according to patient size, use of iterative reconstruction technique. Findings: Axial sections demonstrate intact base of the skull. C1 exhibit satisfactory relationship to the odontoid. No acute cervical vertebral body fracture seen. Alignment posterior spinous processes satisfactory. 8 mm sclerotic focus C5 vertebral body Impression: No acute cervical fracture. 8 mm sclerotic focus C5 vertebral body, recommend elective MRI cervical spine follow-up pre and postcontrast to exclude osteoblastic metastatic disease
--- NOTE | 2025-01-28 20:12 | PD.EDADULT ---
ED General RME/HPI General Chief complaint: Fall Stated complaint: FALL, HEAD INJURY Time Seen by Provider: 01/28/25 19:30 Arrival date/time: 01/28/25 19:28 CC: Fall, right occiput hematoma HPI patient fell after losing his balance. Patient said he is fallen multiple times since May when he had a severe pneumonia. Patient refuses to use his walker and states he barely uses his cane . Patient denies loss of consciousness altered level of consciousness nausea or vomiting. The patient is hard of hearing. Patient is awake alert oriented x 2 Glascow coma 15 with no focal deficits. Related Data Home Medications ?Medication ?Instructions ?Recorded ?Confirmed atorvastatin 10 mg tablet (Lipitor) 10 mg PO QDAY #0 tabs 02/28/16 05/22/24 gabapentin 300 mg capsule 300 mg PO TID ##0 02/28/16 05/22/24 (Neurontin) metformin 500 mg tablet 500 mg PO TID #0 tabs 02/28/16 05/22/24 (Glucophage) amlodipine 5 mg tablet (Norvasc) 5 mg PO QDAY 03/15/19 05/22/24 dutasteride 0.5 mg capsule 0.5 mg PO QDAY 03/15/19 05/22/24 (Avodart) metoprolol succinate 50 mg capsule 50 mg PO QDAY 03/15/19 05/22/24 sprinkle, ext. release 24 hr olmesartan 40 mg tablet (Benicar) 40 mg PO QDAY 03/15/19 05/22/24 fluticasone propionate 50 1 spray intranasal DAILY 07/19/19 05/22/24 mcg/actuation nasal spray,suspension Previous Rx's ?Medication ?Instructions ?Recorded finasteride 5 mg tablet 5 mg PO QDAY #30 tabs 07/20/19 tamsulosin 0.4 mg capsule 0.4 mg PO QDAY #30 caps 07/20/19 aspirin 81 mg tablet,delayed 81 mg PO QDAY #30 tabs 05/29/24 release (Ecotrin Low Strength) divalproex 125 mg capsule,delayed 750 mg (6 x 125 mg) PO BID #60 caps 05/29/24 release sprinkle losartan 25 mg tablet 100 mg (4 x 25 mg) PO QDAY #30 tabs 05/29/24 magnesium 200 mg tablet 200 mg PO QDAY #30 tabs 06/07/24 pantoprazole 40 mg tablet,delayed 40 mg PO QDAY #30 tabs 06/07/24 release Allergies Allergy/AdvReac Type Severity Reaction Status Date / Time Penicillins Allergy Severe HIVES, RASH Verified 01/28/25 19:38 shellfish derived Allergy Intermediate Swelling Verified 01/28/25 19:38 Iodine and Iodide Containing AdvReac Severe Vomiting, Verified 01/28/25 19:38 Produc SWELLING Review of Systems Review of Systems Narrative Review of Systems: GEN: No fever, no chills, no weight loss EYES: No discharge, no visual changes, no pain HEENT: No ear pain, no congestion, no sore throat PULM: No shortness of breath, no cough, no congestion CV: No chest pain, no dyspnea on exertion, no palpitations GI: No nausea, no vomiting, no diarrhea, no pain, no constipation : No frequency, no urgency, no dysuria MUSC/SKEL: No joint pain, no back pain SKIN: No rash PSYCH: No hallucinations, no depression HEME/LYMPH: No easy bleeding or bruising tendencies NEURO: No weakness, no headache Past Medical History Past Medical History NEUROLOGIC: Positive Peripheral Neuropathy CARDIAC: Positive Cardiac Disorders, Hypercholesterolemia, Congestive Heart Failure and Hypertension RESPIRATORY: Positive Asthma; Negative Chronic Obstructive Pulmonary Disease (COPD) GASTROINTESTINAL: Negative Gastrointestinal Disorders GENITOURINARY: Positive Benign Prostatic Hyperplasia; Negative Renal Disease MUSCULOSKELETAL: Positive Arthritis and Degenerative Disk Disease ENT: Positive Deafness ([place]) ENDOCRINE: Positive Endocrine Disorders and Diabetes Mellitus Type 2; Negative Diabetes Mellitus Type 1 HEMATOLOGIC: Positive Sickle Cell Disease OTHER HISTORY: Negative Blood Transfusions Family History FAMILY HISTORY: Positive Family Neurologic Problems (Mother had a stroke) and Family Cancer Surgical History SURGICAL: Positive Coronary Stent (placed by Greg Seaman in 2018) Social History SMOKING STATUS: Never smoker SUBSTANCE USE: does not use ED Exam Narrative Physical exam: [General: Appears not in any acute distress Head: Hematoma to the right occiput and posterior parietal region of the scalp. No depression underneath no crepitance or soft bogginess, no other hematomas or depression. HEENT: Eyes pupils are PERRLA EOMs are intact mouth pink moist membranes uvula is midline swallow symmetrical no raccoon's eyes or berumen signs, no otorrhea or rhinorrhea. Within acceptable limits Neck is supple nontender Chest equal chest rise nontender to palpation Respiratory: Clear to auscultation no wheezes crackles or rubs CV: Rate rhythm is regular no murmurs rubs or clicks Abdomen is soft nontender no masses positive bowel sounds all 4 quadrants Back: No CVA tenderness no spinous process tenderness from cervical spine thoracic and lumbar spine Skin: Intact no petechiae rash induration ulceration or crepitus Extremities: Moving all extremity against resistance cap refill less than 2 seconds neurosensory intact Neuro: Awake alert oriented x2, person and place, Glascow coma 15 no focal deficits] Course Course Course Narrative: Reassessment of this patient at 2130, the patient is awake alert oriented not any focal deficits no deterioration in neurologic status CT of the head and C-spine is negative will discharge the patient home with fall and occiput hematoma. Quality Measures none Orders Category Date Time Status CT cervical spine wo con Stat Exams 01/28/25 19:[address] head/brain wo con Stat Exams 01/28/25 19:52 Completed Vital Signs Vital signs: Vital Signs Temperature 97.5 F 01/28/25 19:39 Pulse Rate 90 01/28/25 19:39 Respiratory Rate 18 01/28/25 19:39 Blood Pressure 162/85 H 01/28/25 19:39 Pulse Oximetry (%) 98 01/28/25 19:39 Oxygen Delivery Method Room Air 01/28/25 19:39 Discharge Plan Plan Patient Disposition: HOME (Self Care) Patient condition on transfer: Stable Prescriptions/Referrals Prescriptions/Med Rec: No Action metformin [Glucophage] 500 MG tablet 500 mg PO TID Qty: 0 atorvastatin [Lipitor] 10 MG tablet 10 mg PO QDAY Qty: 0 gabapentin [Neurontin] 300 MG capsule 300 mg PO TID Qty: 0 amlodipine [Norvasc] 5 mg Tablet 5 mg PO QDAY olmesartan [Benicar] 40 mg Tablet 40 mg PO QDAY dutasteride [Avodart] 0.5 mg Capsule 0.5 mg PO QDAY metoprolol succinate 50 mg Capsule,Sprinkle,Er 24hr 50 mg PO QDAY fluticasone propionate 50 mcg/actuation spray,suspension 1 spray intranasal DAILY Patient Comments: SHAKE LQ AND U 1 SPR IEN QD finasteride 5 mg Tablet 5 mg PO QDAY Qty: 30 0RF tamsulosin 0.4 mg Capsule 0.4 mg PO QDAY Qty: 30 0RF aspirin [Ecotrin Low Strength] 81 mg Tablet,Delayed Release (Dr/Ec) 81 mg PO QDAY Qty: 30 0RF losartan 25 mg Tablet 100 mg PO QDAY Qty: 30 0RF divalproex 125 mg Capsule, Delayed Rel Sprinkle 750 mg PO BID Qty: 60 0RF pantoprazole 40 mg tablet,delayed release (DR/EC) 40 mg PO QDAY Qty: 30 0RF magnesium 200 mg tablet 200 mg PO QDAY Qty: 30 0RF Referrals: Sai Anaya PA-C [Primary Care Provider] - In 1 week Problem List Clinical Impression: Fall, Traumatic hematoma of occiput Patient/Caregiver Discharge Instructions Education Materials: Preventing Falls Moving Safely ... Print Language: Guinean Stand Alone Forms: [employer]aci Award Info., Patient Portal Info Letter MDM Clinical Information Provided by: patient and EMS Medical Records reviewed [facility] and EMS Meds/Rx considered, not ordered None Labs/Rad/Tests considered, not ordered None Chronic Illness/Social Conditions Explain: Hypertension diabetes coronary artery disease, admission for pneumonia in May 2024. EKG EKG not done Labs Labs: none Imaging Imaging interpretation: interpreted by ct Imaging Interpretation(s): CT head and C-spine is are negative for any acute finding that requires emergent or immediate intervention.
[2025-01-28 21:55] VITALS: BP 162/84; PULSE 81; RESP 18; O2SAT 94
== END 2025-01-28 21:56 | disposition home or self-care (01) ==
PROVIDERS: Emergency Provider Emergency Medicine; PCP Student in an Organized Health Care Education/Training Program
DX: S09.90XA Unspecified injury of head, initial encounter (principal); W19.XXXA Unspecified fall, initial encounter; E11.9 Type 2 diabetes mellitus without complications; I10 Essential (primary) hypertension; I25.10 Atherosclerotic heart disease of native coronary artery without angina pectoris; Z79.84 Long term (current) use of oral hypoglycemic drugs
CPT/HCPCS: 70450; 72125; 99282